=== PATIENT | female | born 1985 | race Caucasian/White ===

== ENCOUNTER 2017-06-05 16:54 | Emergency (ER) | payer MEDICAID ==
[2017-06-05 17:29] LABS: CHLORIDE,CL 101 mmol/L (101-111); SODIUM,NA 139 mmol/L (135-145)
[2017-06-05] MEDS ORDERED: GI Cocktail Oral Solution 30 ML PO ONE (17:36)
--- NOTE | 2017-06-05 17:42 | EDM.PDOC ---
ED HPI GENERAL MEDICAL PROBLEM - General Chief Complaint: Chest Pain Stated Complaint: CHEST PAIN THAT MOVED TO LEFT SIDE [id number] Time Seen by Provider: 06/05/17 17:25 Source of Information: Reports: Patient History Limitations: Reports: No Limitations - History of Present Illness INITIAL COMMENTS - FREE TEXT/NARRATIVE: This 32 yo female patient reports to the ED with an acute onset of epigastric pain. The patient reports her pain started in the epigastric area, went through to her back and up into her left posterior shoulder. The patient reports she has recently (Thursday) had an Echo due to frequent PVC's. The patient reports she is scheduled to have continued evaluation by a specialist on 07/09/17. The patient reports she had turkey, mashed potatoes and gravy for lunch today. The patient reports she took a nap and was awoken at 1604 with the symptoms listed above. 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: Reports: EKG, IV/IO Left Chest Pain Score (Numeric/FACES): 7 - Related Data Allergies Allergy/AdvReac Type Severity Reaction Status Date / Time Penicillins Allergy Abdominal Verified 06/05/17 17:09 Cramps clindamycin AdvReac Nausea and Verified 06/05/17 17:09 Vomiting Home Meds: Home Meds Acetaminophen [Tylenol] 650 mg PO Q4H PRN #0 tablet 08/27/16 [Rx] Omeprazole Magnesium [Prilosec Otc] 20 mg PO DAILY 06/05/17 [History] Past Medical History - Past Health History Medical/Surgical History: Denies Medical/Surgical History HEENT History: Reports: Impaired Vision Cardiovascular History: Reports: None Respiratory History: Reports: None Gastrointestinal History: Reports: None Genitourinary History: Reports: None 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: , 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 Other OB/BYN History: T.A.- May 09, 2015 Musculoskeletal History: Reports: Other (See Below) Other Musculoskeletal History: ACL repaired Neurological History: Reports: None Psychiatric History: Reports: Anxiety, Depression Endocrine/Metabolic History: Reports: None Hematologic History: Reports: None Immunologic History: Reports: None Oncologic (Cancer) History: Reports: None Dermatologic History: Reports: None - Infectious Disease History Infectious Disease History: Reports: Chicken Pox, Herpes - Past Surgical History Head Surgeries/Procedures: Reports: None HEENT Surgical History: Reports: Tonsillectomy Female Surgical History: Reports: Dilitation & Evacuation Musculoskeletal Surgical History: Reports: Arthroscopic Knee, Other (See Below) Social & Family History - Family History Family Medical History: Noncontributory - Tobacco Use Smoking Status *Q: Current Some Day Smoker Years of Tobacco use: 16 Packs/Tins Daily: 0.5 Used Tobacco, but Quit: Yes Month Tobacco Last Used: 12 Second Hand Smoke Exposure: Yes - Caffeine Use Caffeine Use: Reports: Coffee, Soda - Alcohol Use Days Per Week of Alcohol Use: 1 Number of Drinks Per Day: 2 Total Drinks Per Week: 2 - Recreational Drug Use Recreational Drug Use: No ED ROS GENERAL - Review of Systems Review Of Systems: ROS reveals no pertinent complaints other than HPI. ED EXAM, GENERAL - Physical Exam Exam: See Below Exam Limited By: No Limitations General Appearance: Alert, WD/WN, Moderate Distress Eye Exam: Bilateral Eye: EOMI, Normal Inspection, PERRL Ears: Normal External Exam, Normal Canal, Hearing Grossly Normal, Normal TMs Nose: Normal Inspection, Normal Mucosa, No Blood Throat/Mouth: Normal Inspection, Normal Lips, Normal Teeth, Normal Gums, Normal Oropharynx, Normal Voice, No Airway Compromise Head: Atraumatic, Normocephalic Neck: Normal Inspection, Supple, Non-Tender, Full Range of Motion Respiratory/Chest: No Respiratory Distress, Lungs Clear, Normal Breath Sounds, No Accessory Muscle Use, Chest Non-Tender Cardiovascular: Normal Peripheral Pulses, Regular Rate, Rhythm, No Edema, No Gallop, No JVD, No Murmur, No Rub, Other (frequent irregular beats) GI/Abdominal: Normal Bowel Sounds, Soft, No Organomegaly, No Distention, No Abnormal Bruit, No Mass, Tender (mild epigastric tenderness) (Female) Exam: Deferred Rectal (Female) Exam: Deferred Back Exam: Normal Inspection, Full Range of Motion, NT Extremities: Normal Inspection, Normal Range of Motion, Non-Tender, Normal Capillary Refill, No Pedal Edema Neurological: Alert, Oriented, CN II-XII Intact, Normal Cognition, Normal Gait, Normal Reflexes, No Motor/Sensory Deficits Psychiatric: Normal Affect, Normal Mood Skin Exam: Warm, Dry, Intact, Normal Color, No Rash Lymphatic: No Adenopathy Course - Vital Signs Last Recorded V/S: Last Vital Signs Temp 36.8 C 06/05/17 17:05 Pulse 86 06/05/17 17:42 Resp 16 06/05/17 17:42 BP 108/69 06/05/17 17:42 Pulse Ox 100 06/05/17 17:05 - Orders/Labs/Meds Orders: Active Orders 24 hr Category Date Time Status EKG Documentation Completion [RC] URGENT Care 06/05/17 16:58 Active Chest 1V Frontal [CR] Urgent Exams 06/05/17 17:00 Taken Labs: Laboratory Tests 06/05/17 06/05/17 06/05/17 Range/Units 17:05 17:05 17:05 WBC 8.7 (5.0-10.0) 10^3/uL RBC 4.54 (4.2-5.4) 10^6/uL Hgb 13.9 (12.0-16.0) g/dL Hct 42.1 (37.0-47.0) % MCV 92.7 (80-100) fL MCH 30.6 (27.0-34.0) pg MCHC 33.0 (33.0-35.0) g/dL Plt Count 277 (150-450) 10^3/uL Neut % (Auto) 47.1 (42.2-75.2) % Lymph % (Auto) 42.1 (20.5-50.1) % [place] % (Auto) 8.7 H (2-8) % Eos % (Auto) 1.8 (1.0-3.0) % Baso % (Auto) 0.3 (0.0-1.0) % D-Dimer, Quantitative < 100 (0-400) ng/mL Sodium 139 (135-145) mmol/L Potassium 3.7 (3.6-5.0) mmol/L Chloride 101 (101-111) mmol/L Carbon Dioxide 27.0 (21.0-31.0) mmol/L Anion Gap 14.7 BUN 16 (7-18) mg/dL Creatinine 1.1 (0.6-1.3) mg/dL Est Cr Clr Drug Dosing 79.40 mL/min Estimated GFR (MDRD) 58 BUN/Creatinine Ratio 14.54 Glucose 91 (74-105) mg/dL Calcium 9.4 (8.4-10.2) mg/dl Total Bilirubin 0.2 (0.2-1.0) mg/dL AST 21 (10-42) IU/L ALT 18 (10-60) IU/L Alkaline Phosphatase 92 (42-121) IU/L Troponin I < 0.02 (0.00-0.02) ng/ml Total Protein 7.9 (6.7-8.2) g/dl Albumin 4.5 (3.2-5.5) g/dl Globulin 3.4 Albumin/Globulin Ratio 1.32 Amylase 46 (28-100) U/L Lipase 39 (22-51) U/L Urine Color (YELLOW) Urine Appearance (CLEAR) Urine pH (5.0-9.0) Ur Specific [place] (1.005-1.030) Urine Protein (NEGATIVE) Urine Glucose (UA) (NEGATIVE) Urine Ketones (NEGATIVE) Urine Occult Blood (NEGATIVE) Urine Nitrite (NEGATIVE) Urine Bilirubin (NEGATIVE) Urine Urobilinogen (0.2-1.0) mg/dL Ur Leukocyte Esterase (NEGATIVE) Urine RBC /HPF Urine WBC (0-5/HPF) /HPF Ur Epithelial Cells /HPF Amorphous Sediment (0/HPF) /HPF Urine Opiates Screen (NEGATIVE) Ur Oxycodone Screen (NEGATIVE) Urine Methadone Screen (NEGATIVE) Ur Barbiturates Screen (NEGATIVE) U Tricyclic Antidepress (NEGATIVE) Ur Phencyclidine Scrn (NEGATIVE) Ur Amphetamine Screen (NEGATIVE) U Methamphetamines Scrn (NEGATIVE) Urine MDMA Screen (NEGATIVE) U Benzodiazepines Scrn (NEGATIVE) Urine Cocaine Screen (NEGATIVE) U Marijuana (THC) Screen (NEGATIVE) 06/05/17 06/05/17 Range/Units 17:08 17:08 WBC (5.0-10.0) 10^3/uL RBC (4.2-5.4) 10^6/uL Hgb (12.0-16.0) g/dL Hct (37.0-47.0) % MCV (80-100) fL MCH (27.0-34.0) pg MCHC (33.0-35.0) g/dL Plt Count (150-450) 10^3/uL Neut % (Auto) (42.2-75.2) % Lymph % (Auto) (20.5-50.1) % [place] % (Auto) (2-8) % Eos % (Auto) (1.0-3.0) % Baso % (Auto) (0.0-1.0) % D-Dimer, Quantitative (0-400) ng/mL Sodium (135-145) mmol/L Potassium (3.6-5.0) mmol/L Chloride (101-111) mmol/L Carbon Dioxide (21.0-31.0) mmol/L Anion Gap BUN (7-18) mg/dL Creatinine (0.6-1.3) mg/dL Est Cr Clr Drug Dosing mL/min Estimated GFR (MDRD) BUN/Creatinine Ratio Glucose (74-105) mg/dL Calcium (8.4-10.2) mg/dl Total Bilirubin (0.2-1.0) mg/dL AST (10-42) IU/L ALT (10-60) IU/L Alkaline Phosphatase (42-121) IU/L Troponin I (0.00-0.02) ng/ml Total Protein (6.7-8.2) g/dl Albumin (3.2-5.5) g/dl Globulin Albumin/Globulin Ratio Amylase (28-100) U/L Lipase (22-51) U/L Urine Color Yellow (YELLOW) Urine Appearance Clear (CLEAR) Urine pH 7.5 (5.0-9.0) Ur Specific [place] 1.015 (1.005-1.030) Urine Protein Negative (NEGATIVE) Urine Glucose (UA) Negative (NEGATIVE) Urine Ketones Negative (NEGATIVE) Urine Occult Blood Negative (NEGATIVE) Urine Nitrite Negative (NEGATIVE) Urine Bilirubin Negative (NEGATIVE) Urine Urobilinogen 0.2 (0.2-1.0) mg/dL Ur Leukocyte Esterase Negative (NEGATIVE) Urine RBC 0-5 /HPF Urine WBC 0-5 (0-5/HPF) /HPF Ur Epithelial Cells Few /HPF Amorphous Sediment Rare (0/HPF) /HPF Urine Opiates Screen Negative (NEGATIVE) Ur Oxycodone Screen Negative (NEGATIVE) Urine Methadone Screen Negative (NEGATIVE) Ur Barbiturates Screen Negative (NEGATIVE) U Tricyclic Antidepress Negative (NEGATIVE) Ur Phencyclidine Scrn Negative (NEGATIVE) Ur Amphetamine Screen Negative (NEGATIVE) U Methamphetamines Scrn Negative (NEGATIVE) Urine MDMA Screen Negative (NEGATIVE) U Benzodiazepines Scrn Negative (NEGATIVE) Urine Cocaine Screen Negative (NEGATIVE) U Marijuana (THC) Screen Negative (NEGATIVE) Meds: Medications Discontinued Medications Generic Name Dose Route Start Last Admin Trade Name [place] PRN Reason Stop Dose Admin Al Hydroxide/Mg Hydroxide 30 ml 06/05/17 17:36 06/05/17 17:41 Gi Cocktail PO 06/05/17 17:37 30 ml ONETIME ONE Administration Departure - Departure Time of Disposition: 18:02 Disposition: Home, Self-Care 01 Condition: Fair Clinical Impression: Epigastric abdominal pain Instructions: Abdominal Pain, Adult, [id number] Forms: ED Department Discharge Care Plan Goals: The patient was advised of the examination, lab, EKG and x-ray results during the visit. The patient was given a GI cocktail while in the ED with no changes in her symptoms. The patient was encouraged to stick to a bland, low fat diet over the weekend. If the patient has any additional symptoms or concerns, the patient should follow-up with her primary care facility or return to the emergency department. - My Orders Last 24 Hours: My Active Orders 06/05/17 16:58 EKG Documentation Completion [RC] URGENT 06/05/17 17:00 Chest 1V Frontal [CR] Urgent - Assessment/Plan Last 24 Hours: My Active Orders 06/05/17 16:58 EKG Documentation Completion [RC] URGENT 06/05/17 17:00 Chest 1V Frontal [CR] Urgent
[2017-06-05 17:43] VITALS: BP 108/69
--- NOTE | 2017-06-11 15:06 | EKG ---
06/05/2017 - KARIS WILSON - FINDINGS: This 12-lead EKG shows a sinus arrhythmia with an average rate of 88 (78 to 96). There are multiple PVCs seen. Borderline prolonged QT interval. No acute ST-segment or T-wave changes. [facility] /[id number]
== END 2017-06-05 18:09 | disposition home or self-care (01) ==
LOC: DL.ED 16:54
DX: R10.13 Epigastric pain (principal); F17.210 Nicotine dependence, cigarettes, uncomplicated; Z88.0 Allergy status to penicillin; Z88.1 Allergy status to other antibiotic agents
CPT/HCPCS: 36415; 71010; 80053; 80305; 81001; 82150; 83690; 84484; 85025; 85379; 93005; 99285; A9270

== ENCOUNTER 2017-06-17 13:27 | Emergency (ER) | payer MEDICAID | END 2017-06-17 13:56 | disposition left against medical advice (07) | LOC: DL.ED 13:27 | DX: Z53.21 Procedure and treatment not carried out due to patient leaving prior to being seen by health care provider (principal) ==

== ENCOUNTER 2017-07-25 09:23 | Emergency (ER) | payer MEDICAID ==
[2017-07-25] MEDS ORDERED: GI Cocktail Oral Solution 30 ML PO ONE (09:42)
--- NOTE | 2017-07-25 09:46 | EDM.PDOC ---
ED HPI GENERAL MEDICAL PROBLEM - General Chief Complaint: Abdominal Pain Stated Complaint: INDIGESTION,BACK,CHEST,ABD PAINS,RED RASH [id number] Time Seen by Provider: 07/25/17 09:37 Source of Information: Reports: Patient, Old Records, RN, RN Notes Reviewed History Limitations: Reports: No Limitations - History of Present Illness INITIAL COMMENTS - FREE TEXT/NARRATIVE: Arrives from home by POV with c/o RUQ & epigastric abdominal pain that radiates into the chest and causes severe esophageal burning. She also reports a tight band feeling from the RUQ abdomen all the way around her body, and pain the radiates up in the Rt shoulder blade and adjacent upper back. Admits to nausea. Denies vomiting, diarrhea, constipation, fever, chills, cough, SOB, middle or lower abdominal pain, flank pain, or urinary symptoms. Onset of her Sx's was yesterday morning. She took multiple OTC antacid products and omeprazole 20mg x2 doses without relief. After dinner last evening she also developed a hive like rash on her chest, abdomen, and back, and a little on the face. She denies any prior Hx of acid reflux. Addendum created by Brayden Farrar MD on 07/25/2017 11:53 AM Central Time ([place] & [place]) Please add: There is mild circumferential wall thickening of the duodenum, which is nonspecific. This may reflect under distention of bowel although mild duodenitis can also produce similar imaging findings. There are no significant inflammatory changes within the mesentery. 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 Treatments, Other Medication(s) Bilateral Upper Back Pain Score (Numeric/FACES): 8 - Related Data Allergies Allergy/AdvReac Type Severity Reaction Status Date / Time Penicillins Allergy Abdominal Verified 07/25/17 09:44 Cramps clindamycin AdvReac Nausea and Verified 07/25/17 09:44 Vomiting Home Meds: Home Meds Acetaminophen [Tylenol] 650 mg PO Q4H PRN #0 tablet 08/27/16 [Rx] Omeprazole Magnesium [Prilosec Otc] 20 mg PO DAILY 06/05/17 [History] Past Medical History - Past Health History Medical/Surgical History: Denies Medical/Surgical History HEENT History: Reports: Impaired Vision Cardiovascular History: Reports: Other (See Below) (PVCs) Respiratory History: Reports: None Gastrointestinal History: Reports: None Genitourinary History: Reports: None 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: , 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 Other OB/BYN History: T.A.- May 09, 2015 Musculoskeletal History: Reports: Other (See Below) Other Musculoskeletal History: ACL repaired Neurological History: Reports: None Psychiatric History: Reports: Anxiety, Depression Endocrine/Metabolic History: Reports: None Hematologic History: Reports: None Immunologic History: Reports: None Oncologic (Cancer) History: Reports: None Dermatologic History: Reports: None - Infectious Disease History Infectious Disease History: Reports: Chicken Pox, Herpes - Past Surgical History Head Surgeries/Procedures: Reports: None HEENT Surgical History: Reports: Tonsillectomy Female Surgical History: Reports: Dilitation & Evacuation Musculoskeletal Surgical History: Reports: Arthroscopic Knee, Other (See Below) Social & Family History - Family History Family Medical History: Noncontributory - Tobacco Use Smoking Status *Q: Current Some Day Smoker Years of Tobacco use: 16 Packs/Tins Daily: 0.5 Used Tobacco, but Quit: Yes Month Tobacco Last Used: 12 Second Hand Smoke Exposure: Yes - Caffeine Use Caffeine Use: Reports: Coffee, Soda - Alcohol Use Days Per Week of Alcohol Use: 1 Number of Drinks Per Day: 2 Total Drinks Per Week: 2 - Recreational Drug Use Recreational Drug Use: No - Living Situation & Occupation Living situation: Reports: with Family ED ROS GENERAL - Review of Systems Review Of Systems: ROS reveals no pertinent complaints other than HPI. ED EXAM, GENERAL - Physical Exam Exam: See Below Exam Limited By: No Limitations General Appearance: Alert, WD/WN, No Apparent Distress, Anxious Eye Exam: Bilateral Eye: Normal Inspection Ears: Hearing Grossly Normal Nose: Normal Inspection Throat/Mouth: Normal Inspection, Normal Lips, Normal Oropharynx, Normal Voice, No Airway Compromise Head: Atraumatic, Normocephalic Neck: Normal Inspection, Supple, Non-Tender, Full Range of Motion. No: Lymphadenopathy (L), Lymphadenopathy (R) Respiratory/Chest: No Respiratory Distress, Lungs Clear, Normal Breath Sounds, No Accessory Muscle Use, Chest Non-Tender Cardiovascular: Normal Peripheral Pulses, Regular Rate, Rhythm, No Edema, No Gallop, No JVD, No Murmur, No Rub, Extra Beats GI/Abdominal: Normal Bowel Sounds, Soft, No Distention, No Abnormal Bruit, Tender (epigastric and RUQ). No: Guarding, Rigid, Rebound (Female) Exam: Deferred Rectal (Female) Exam: Deferred Back Exam: Full Range of Motion Extremities: Normal Inspection Neurological: Alert, Oriented, CN II-XII Intact, Normal Cognition, Normal Gait, No Motor/Sensory Deficits Psychiatric: Anxious Skin Exam: Warm, Dry, Intact, Normal Color, Rash (generalized blanching urticarial rash to torso and a small amount on face) EKG INTERPRETATION EKG Date: 07/25/17 Time: 09:43 Rhythm: Other (SR) Rate (Beats/Min): 69 [place]: Normal P-Wave: Present QRS: Normal (with a single PVC) ST-T: Normal QT: Normal Comparison: NA - No Prior EKG EKG Interpretation Comments: No acute ischemic changes. Course - Vital Signs Last Recorded V/S: Last Vital Signs Temp 36.9 C 07/25/17 11:56 Pulse 69 07/25/17 11:56 Resp 18 07/25/17 11:56 BP 107/68 07/25/17 11:56 Pulse Ox 98 07/25/17 11:56 - Orders/Labs/Meds Orders: Active Orders 24 hr Category Date Time Status EKG 12 Lead [EKG Documentation Completion] [RC] STAT Care 07/25/17 09:41 Active Peripheral IV Care [RC] . DIRECTED Care 07/25/17 10:05 Active Abdomen Pelvis w Cont [CT] Stat Exams 07/25/17 10:41 Ordered Chest 1V Frontal [CR] Stat Exams 07/25/17 09:41 Taken CULTURE STREP A CONFIRMATION [] Stat Lab 07/25/17 10:22 Results STREP SCRN A RAPID W CULT CONF [RM] Stat Lab 07/25/17 10:22 Results Sodium Chloride 0.9% [Saline Flush] Med 07/25/17 10:05 Active 10 ml FLUSH ASDIRECTED PRN Peripheral IV Insertion Adult [OM.PC] Stat Oth 07/25/17 10:05 Ordered Medication Orders Sodium Chloride (Saline Flush) 10 ml FLUSH ASDIRECTED PRN PRN Reason: Keep Vein Open Last Admin: 07/25/17 10:25 Dose: 10 ml Labs: Laboratory Tests 07/25/17 07/25/17 07/25/17 Range/Units 09:52 09:52 09:52 WBC 7.5 (5.0-10.0) 10^3/uL RBC 4.29 (4.2-5.4) 10^6/uL Hgb 13.2 (12.0-16.0) g/dL Hct 41.0 (37.0-47.0) % MCV 95.6 (80-100) fL MCH 30.8 (27.0-34.0) pg MCHC 32.2 L (33.0-35.0) g/dL Plt Count 244 (150-450) 10^3/uL Neut % (Auto) 53.7 (42.2-75.2) % Lymph % (Auto) 38.5 (20.5-50.1) % Piatt % (Auto) 6.3 (2-8) % Eos % (Auto) 1.1 (1.0-3.0) % Baso % (Auto) 0.4 (0.0-1.0) % D-Dimer, Quantitative < 100 (0-400) ng/mL Sodium 137 (135-145) mmol/L Potassium 3.6 (3.6-5.0) mmol/L Chloride 99 L (101-111) mmol/L Carbon Dioxide 29.0 (21.0-31.0) mmol/L Anion Gap 12.6 BUN 13 (7-18) mg/dL Creatinine 0.7 (0.6-1.3) mg/dL Est Cr Clr Drug Dosing TNP Estimated GFR (MDRD) > 60 BUN/Creatinine Ratio 18.57 Glucose 101 (74-105) mg/dL Calcium 9.1 (8.4-10.2) mg/dl Total Bilirubin 0.4 (0.2-1.0) mg/dL AST 25 (10-42) IU/L ALT 18 (10-60) IU/L Alkaline Phosphatase 78 (42-121) IU/L Troponin I < 0.02 (0.00-0.02) ng/ml Total Protein 7.1 (6.7-8.2) g/dl Albumin 3.9 (3.2-5.5) g/dl Globulin 3.2 Albumin/Globulin Ratio 1.22 Amylase 37 (28-100) U/L Lipase 24 (22-51) U/L Urine Color (YELLOW) Urine Appearance (CLEAR) Urine pH (5.0-9.0) Ur Specific [place] (1.005-1.030) Urine Protein (NEGATIVE) Urine Glucose (UA) (NEGATIVE) Urine Ketones (NEGATIVE) Urine Occult Blood (NEGATIVE) Urine Nitrite (NEGATIVE) Urine Bilirubin (NEGATIVE) Urine Urobilinogen (0.2-1.0) mg/dL Ur Leukocyte Esterase (NEGATIVE) Urine RBC /HPF Urine WBC (0-5/HPF) /HPF Ur Epithelial Cells /HPF Urine Bacteria (0-FEW/HPF) /HPF Urine Mucus /LPF Urine HCG, Qual Urine Opiates Screen (NEGATIVE) Ur Oxycodone Screen (NEGATIVE) Urine Methadone Screen (NEGATIVE) Ur Barbiturates Screen (NEGATIVE) U Tricyclic Antidepress (NEGATIVE) Ur Phencyclidine Scrn (NEGATIVE) Ur Amphetamine Screen (NEGATIVE) U Methamphetamines Scrn (NEGATIVE) Urine MDMA Screen (NEGATIVE) U Benzodiazepines Scrn (NEGATIVE) Urine Cocaine Screen (NEGATIVE) U Marijuana (THC) Screen (NEGATIVE) 07/25/17 07/25/17 07/25/17 Range/Units 10:06 10:06 10:06 WBC (5.0-10.0) 10^3/uL RBC (4.2-5.4) 10^6/uL Hgb (12.0-16.0) g/dL Hct (37.0-47.0) % MCV (80-100) fL MCH (27.0-34.0) pg MCHC (33.0-35.0) g/dL Plt Count (150-450) 10^3/uL Neut % (Auto) (42.2-75.2) % Lymph % (Auto) (20.5-50.1) % Piatt % (Auto) (2-8) % Eos % (Auto) (1.0-3.0) % Baso % (Auto) (0.0-1.0) % D-Dimer, Quantitative (0-400) ng/mL Sodium (135-145) mmol/L Potassium (3.6-5.0) mmol/L Chloride (101-111) mmol/L Carbon Dioxide (21.0-31.0) mmol/L Anion Gap BUN (7-18) mg/dL Creatinine (0.6-1.3) mg/dL Est Cr Clr Drug Dosing Estimated GFR (MDRD) BUN/Creatinine Ratio Glucose (74-105) mg/dL Calcium (8.4-10.2) mg/dl Total Bilirubin (0.2-1.0) mg/dL AST (10-42) IU/L ALT (10-60) IU/L Alkaline Phosphatase (42-121) IU/L Troponin I (0.00-0.02) ng/ml Total Protein (6.7-8.2) g/dl Albumin (3.2-5.5) g/dl Globulin Albumin/Globulin Ratio Amylase (28-100) U/L Lipase (22-51) U/L Urine Color Yellow (YELLOW) Urine Appearance Slightly cloudy (CLEAR) Urine pH 6.0 (5.0-9.0) Ur Specific [place] 1.015 (1.005-1.030) Urine Protein Negative (NEGATIVE) Urine Glucose (UA) Negative (NEGATIVE) Urine Ketones Negative (NEGATIVE) Urine Occult Blood Negative (NEGATIVE) Urine Nitrite Negative (NEGATIVE) Urine Bilirubin Negative (NEGATIVE) Urine Urobilinogen 0.2 (0.2-1.0) mg/dL Ur Leukocyte Esterase Negative (NEGATIVE) Urine RBC 0-5 /HPF Urine WBC 5-10 H (0-5/HPF) /HPF Ur Epithelial Cells Moderate H /HPF Urine Bacteria Few (0-FEW/HPF) /HPF Urine Mucus Rare /LPF Urine HCG, Qual Negative Urine Opiates Screen Negative (NEGATIVE) Ur Oxycodone Screen Negative (NEGATIVE) Urine Methadone Screen Negative (NEGATIVE) Ur Barbiturates Screen Negative (NEGATIVE) U Tricyclic Antidepress Negative (NEGATIVE) Ur Phencyclidine Scrn Negative (NEGATIVE) Ur Amphetamine Screen Negative (NEGATIVE) U Methamphetamines Scrn Negative (NEGATIVE) Urine MDMA Screen Negative (NEGATIVE) U Benzodiazepines Scrn Negative (NEGATIVE) Urine Cocaine Screen Negative (NEGATIVE) U Marijuana (THC) Screen Positive H (NEGATIVE) Meds: Medications Generic Name Dose Route Start Last Admin Trade Name Levarq PRN Reason Stop Dose Admin Sodium Chloride 10 ml 07/25/17 10:05 07/25/17 10:25 Saline Flush FLUSH 10 ml ASDIRECTED PRN Administration Keep Vein Open Discontinued Medications Generic Name Dose Route Start Last Admin Trade Name [place] PRN Reason Stop Dose Admin Al Hydroxide/Mg Hydroxide 30 ml 07/25/17 09:42 07/25/17 10:07 Gi Cocktail PO 07/25/17 09:43 30 ml ONETIME ONE Administration Diphenhydramine HCl 25 mg 07/25/17 10:05 07/25/17 10:25 Benadryl IVPUSH 07/25/17 10:06 25 mg ONETIME ONE Administration Famotidine 20 mg 07/25/17 10:06 07/25/17 10:25 Pepcid IVPUSH 07/25/17 10:07 20 mg ONETIME ONE Administration Sodium Chloride 1,000 mls @ 999 mls/hr 07/25/17 10:06 07/25/17 10:25 Normal Saline IV 07/25/17 11:06 999 mls/hr .BOLUS ONE Administration Iopamidol 100 ml 07/25/17 10:43 Isovue-300 (61%) IVPUSH 07/25/17 10:44 ONETIME ONE Methylprednisolone Sodium Succinate 125 mg 07/25/17 10:06 07/25/17 10:25 Solu-Medrol IVPUSH 07/25/17 10:07 125 mg ONETIME ONE Administration - Radiology Interpretation Free Text/Narrative:: AP CXR IMPRESSION: Opacity right lung base may reflect subsegmental atelectasis. No acute cardiopulmonary process otherwise. Thank you for allowing us to participate in the care of your patient. Dictated and Authenticated by: Brayden Farrar MD 07/25/2017 10:41 AM Central Time ([place] & [place]) CT Abd/Pelvis IMPRESSION: No CT evidence for acute process to explain the patient's right upper quadrant pain. Consider right quadrant ultrasound. Thank you for allowing us to participate in the care of your patient. Dictated and Authenticated by: Brayden Farrar MD 07/25/2017 11:47 AM Central Time ([place] & [place]) CT Results Date: 07/25/17 Departure - Departure Time of Disposition: 11:58 Disposition: Home, Self-Care 01 Condition: Fair Clinical Impression: Duodenitis GERD (gastroesophageal reflux disease) Qualifiers: Esophagitis presence: with esophagitis Qualified Code(s): K21.0 - Gastro- esophageal reflux disease with esophagitis - Discharge Information Instructions: Gastroesophageal Reflux Disease, Adult, Duodenitis, Abdominal Pain, Adult, [id number] Forms: ED Department Discharge Additional Instructions: Diet modification as indicated on the printed discharge instructions. Rx: Carafate 1g Rx: Ranitidine 150mg Rx: Omeprazole 20mg Rx: Zofran 4mg Follow up in clinic next week with your primary doctor for recheck and referral an upper GI endoscopy. Return to ER if worse at any time. - My Orders Last 24 Hours: My Active Orders 07/25/17 09:41 EKG 12 Lead [EKG Documentation Completion] [RC] STAT Chest 1V Frontal [CR] Stat 07/25/17 10:05 Peripheral IV Care [RC] . DIRECTED Sodium Chloride 0.9% [Saline Flush] 10 ml FLUSH ASDIRECTED PRN Peripheral IV Insertion Adult [OM.PC] Stat 07/25/17 10:22 CULTURE STREP A CONFIRMATION [RM] Stat STREP SCRN A RAPID W CULT CONF [RM] Stat 07/25/17 10:41 Abdomen Pelvis w Cont [CT] Stat - Assessment/Plan Last 24 Hours: My Active Orders 07/25/17 09:41 EKG 12 Lead [EKG Documentation Completion] [RC] STAT Chest 1V Frontal [CR] Stat 07/25/17 10:05 Peripheral IV Care [RC] . DIRECTED Sodium Chloride 0.9% [Saline Flush] 10 ml FLUSH ASDIRECTED PRN Peripheral IV Insertion Adult [OM.PC] Stat 07/25/17 10:22 CULTURE STREP A CONFIRMATION [RM] Stat STREP SCRN A RAPID W CULT CONF [RM] Stat 07/25/17 10:41 Abdomen Pelvis w Cont [CT] Stat
[2017-07-25] MEDS ORDERED: diphenhydrAMINE 50 MG/ML SDV IVPUSH ONE (10:05)
[2017-07-25] MEDS ORDERED: Sodium Chloride 0.9% 10 ML Syringe FLUSH PRN (10:05)
[2017-07-25] MEDS ORDERED: Sodium Chloride 0.9% 1,000 ML IV ONE (10:06)
[2017-07-25] MEDS ORDERED: methylPREDNISolone Sodium Succinate 125 MG/2 ML SDV IVPUSH ONE (10:06)
[2017-07-25] MEDS ORDERED: Famotidine 20 MG/2 ML SDV IVPUSH ONE (10:06)
[2017-07-25 10:20] LABS: ANION GAP 12.6; CHLORIDE,CL 99 mmol/L (101-111); SODIUM,NA 137 mmol/L (135-145)
[2017-07-25] MEDS ORDERED: Iopamidol 612 MG/ML 100 ML Bottle IVPUSH ONE (10:43)
[2017-07-25 11:57] VITALS: BP 107/68
--- NOTE | 2017-07-28 17:28 | EKG ---
07/25/2017 - KARIS WILSON - EKG per my reading shows sinus rhythm at the rate of [address] changes[address] [facility] /[id number]
== END 2017-07-25 12:22 | disposition home or self-care (01) ==
LOC: DL.ED 09:23
DX: K29.80 Duodenitis without bleeding (principal); K21.9 Gastro-esophageal reflux disease without esophagitis; F17.210 Nicotine dependence, cigarettes, uncomplicated; Z79.899 Other long term (current) drug therapy; Z88.0 Allergy status to penicillin; Z88.1 Allergy status to other antibiotic agents
CPT/HCPCS: 36415; 71045; 74177; 80053; 80305; 81001; 81025; 82150; 83690; 84484; 85025; 85379; 87081; 87430; 93005; 96361; 96374; 96375; 99285; A9270; J1200; J2930; J7030; J7050; Q9967; S0028

== ENCOUNTER 2017-07-26 13:10 | Emergency (ER) | payer MEDICAID ==
[2017-07-26 13:24] VITALS: BP 133/75
[2017-07-26] MEDS ORDERED: methylPREDNISolone Sodium Succinate 40 MG/1 ML SDV IM ONE (13:34)
--- NOTE | 2017-07-26 13:39 | EDM.PDOC ---
ED HPI GENERAL MEDICAL PROBLEM - General Stated Complaint: HIVES, ALLERGIC REACTION TO PERSCRIPTIONS Time Seen by Provider: 07/26/17 13:35 Source of Information: Reports: Patient History Limitations: Reports: No Limitations - History of Present Illness INITIAL COMMENTS - FREE TEXT/NARRATIVE: This 32 yo female patient reports to the ED with a diffuse rash on her abdomen and arms. 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 Onset: Gradual Duration: Day(s):, Constant Location: Reports: Generalized Severity: Moderate Improves with: Reports: None Worsens with: Reports: None Associated Symptoms: Reports: No Other Symptoms - Related Data Allergies Allergy/AdvReac Type Severity Reaction Status Date / Time Penicillins Allergy Abdominal Verified 07/26/17 13:35 Cramps clindamycin AdvReac Nausea and Verified 07/26/17 13:35 Vomiting Home Meds: Home Meds Acetaminophen [Tylenol] 650 mg PO Q4H PRN #0 tablet 08/27/16 [Rx] Omeprazole Magnesium [Prilosec Otc] 20 mg PO DAILY 06/05/17 [History] Past Medical History - Past Health History Medical/Surgical History: Denies Medical/Surgical History HEENT History: Reports: Impaired Vision Cardiovascular History: Reports: Other (See Below) (PVCs) Other Cardiovascular History: PVC's and going to have an ablation she states for the PVC's Respiratory History: Reports: None Gastrointestinal History: Reports: None Genitourinary History: Reports: None 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: , 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 Other OB/BYN History: T.A.- May 09, 2015 Musculoskeletal History: Reports: Other (See Below) Other Musculoskeletal History: ACL repaired Neurological History: Reports: None Psychiatric History: Reports: Anxiety, Depression Endocrine/Metabolic History: Reports: None Hematologic History: Reports: None Immunologic History: Reports: None Oncologic (Cancer) History: Reports: None Dermatologic History: Reports: None - Infectious Disease History Infectious Disease History: Reports: Chicken Pox, Herpes - Past Surgical History Head Surgeries/Procedures: Reports: None HEENT Surgical History: Reports: Tonsillectomy Female Surgical History: Reports: Dilitation & Evacuation Musculoskeletal Surgical History: Reports: Arthroscopic Knee, Other (See Below) Social & Family History - Family History Family Medical History: Noncontributory - Tobacco Use Smoking Status *Q: Current Some Day Smoker Years of Tobacco use: 16 Packs/Tins Daily: 0.5 Used Tobacco, but Quit: Yes Month Tobacco Last Used: 12 Second Hand Smoke Exposure: Yes - Caffeine Use Caffeine Use: Reports: Coffee, Soda - Alcohol Use Days Per Week of Alcohol Use: 1 Number of Drinks Per Day: 2 Total Drinks Per Week: 2 - Recreational Drug Use Recreational Drug Use: No - Living Situation & Occupation Living situation: Reports: with Family ED ROS ALLERGIC REACTION - Review of Systems Review Of Systems: ROS reveals no pertinent complaints other than HPI. ED EXAM GENERAL NO PERIP PULSE - Physical Exam Exam: See Below Exam Limited By: No Limitations General Appearance: Alert, WD/WN, No Apparent Distress Eye Exam: Bilateral Eye: EOMI, Normal Inspection, PERRL Ears: Normal External Exam, Normal Canal, Hearing Grossly Normal, Normal TMs Nose: Normal Inspection, Normal Mucosa, No Blood Throat/Mouth: Normal Inspection, Normal Lips, Normal Teeth, Normal Gums, Normal Oropharynx, Normal Voice, No Airway Compromise Head: Atraumatic, Normocephalic Neck: Normal Inspection, Supple, Non-Tender, Full Range of Motion Respiratory/Chest: No Respiratory Distress, Lungs Clear, Normal Breath Sounds, No Accessory Muscle Use, Chest Non-Tender Cardiovascular: Normal Peripheral Pulses, Regular Rate, Rhythm, No Edema, No Gallop, No JVD, No Murmur, No Rub GI/Abdominal: Normal Bowel Sounds, Soft, Non-Tender, No Organomegaly, No Distention, No Abnormal Bruit, No Mass (Female) Exam: Deferred Rectal (Female) Exam: Deferred Back Exam: Normal Inspection, Full Range of Motion, NT Extremities: Normal Inspection, Normal Range of Motion, Non-Tender, Normal Capillary Refill, No Pedal Edema Neurological: Alert Psychiatric: Normal Affect, Normal Mood Skin Exam: Rash (diffuse fine rash on abdomen, chest, upper extremities and back ) Lymphatic: No Adenopathy Course - Vital Signs Last Recorded V/S: Last Vital Signs Temp 36.6 C 07/26/17 13:23 Pulse 83 07/26/17 13:23 Resp 18 07/26/17 13:23 BP 133/75 07/26/17 13:23 Pulse Ox 99 07/26/17 13:23 - Orders/Labs/Meds Meds: Medications Discontinued Medications Generic Name Dose Route Start Last Admin Trade Name Freq PRN Reason Stop Dose Admin Methylprednisolone Sodium Succinate 40 mg 07/26/17 13:34 Solu-Medrol IM 07/26/17 13:35 ONETIME ONE Departure - Departure Time of Disposition: 13:30 Disposition: Home, Self-Care 01 Condition: Fair Clinical Impression: Allergic reaction Qualifiers: Encounter type: initial encounter Qualified Code(s): T78.40XA - Allergy, unspecified, initial encounter - Discharge Information Instructions: Hives, [id number] Forms: ED Department Discharge Care Plan Goals: The patient was advised of the examination results during the visit. The patient was given an injection of SoluMedrol while in the ED. The patient was encouraged to take Benadryl (25 mg) every 6 hours. The patient was encouraged to take her medications as prescribed. The patient should follow-up with her primary care facility for continued evaluation and further management. If the patient has any additional symptoms or concerns, the patient should either return to the ED or visit her primary care facility.
== END 2017-07-26 14:00 | disposition home or self-care (01) ==
LOC: DL.ED 13:10
DX: T78.40XA Allergy, unspecified, initial encounter (principal); Z88.0 Allergy status to penicillin; Z88.8 Allergy status to other drugs, medicaments and biological substances; Z79.899 Other long term (current) drug therapy; F17.210 Nicotine dependence, cigarettes, uncomplicated
CPT/HCPCS: 96372; 99283; J2920

== ENCOUNTER 2017-09-23 13:02 | Emergency (ER) | payer MEDICAID ==
--- NOTE | 2017-09-23 13:55 | CR ---
CLINICAL HISTORY: 32-year-old female with chest pain. INTERPRETATION: No acute new cardiopulmonary abnormality identified in the interval since 25 July 2017 exam. Bony thorax unremarkable. Normal cardiac silhouette without cephalization of flow, signs of alveolar edema or dependent pleural fluid accumulation. No new lung mass, hilar lymphadenopathy or focal lobar pneumonia. No atelectasis/collapse. No pneumothorax.
[2017-09-23 14:01] LABS: CHLORIDE,CL 99 mmol/L (101-111); SODIUM,NA 136 mmol/L (135-145)
--- NOTE | 2017-09-23 14:44 | EDM.PDOC ---
ED HPI GENERAL MEDICAL PROBLEM - General Chief Complaint: Chest Pain Stated Complaint: [id number] chest, back, and shoulder pain sob, sick Time Seen by Provider: 09/23/17 13:55 Source of Information: Reports: Patient History Limitations: Reports: No Limitations - History of Present Illness INITIAL COMMENTS - FREE TEXT/NARRATIVE: This 32 yo female patient reports to the ED with intermittent chest pain that started last night. The patient reports she was lying down last night when her symptoms started. The patient had a second episode of chest pain later last night when she was lying down. The patient had a 3rd similar episode this morning while she was at work. The patient did call the clinic and was advised to report to the ED for further evaluation and treatment. The patient reports that she is supposed to have an ablation this year, but has not been able to schedule the procedure at this time. Onset Date: 09/22/17 Duration: Intermittent Location: Reports: Chest Quality: Reports: Ache, Dull, Pressure Severity: Moderate Improves with: Reports: None Worsens with: Reports: Other (increased stress) Associated Symptoms: Reports: Chest Pain Left Chest Pain Score (Numeric/FACES): 6 - Related Data Allergies Allergy/AdvReac Type Severity Reaction Status Date / Time omeprazole Allergy Hives Verified 09/23/17 13:29 clindamycin AdvReac Nausea and Verified 09/23/17 13:29 Vomiting Penicillins AdvReac Abdominal Verified 09/23/17 13:29 Cramps Home Meds: Home Meds . [No Known Home Meds] 09/23/17 [History] Past Medical History - Past Health History Medical/Surgical History: Denies Medical/Surgical History HEENT History: Reports: Impaired Vision Other HEENT History: WEARS CORRECTIVE LENS Cardiovascular History: Reports: Other (See Below) Other Cardiovascular History: PVC's and going to have an ablation she states for the PVC's Respiratory History: Reports: None Other Respiratory History: HX OF TOBACCO HABITUATION Gastrointestinal History: Reports: GERD, Other (See Below) Other Gastrointestinal History: HX OF CDIFF INFECTION Genitourinary History: Reports: None 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: , 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 Other OB/BYN History: T.A.- May 09, 2015 Musculoskeletal History: Reports: Fracture, Other (See Below) Other Musculoskeletal History: ACL repaired Neurological History: Reports: Migraines Psychiatric History: Reports: Anxiety, Depression Other Psychiatric History: post depression Endocrine/Metabolic History: Reports: Hypothyroidism Hematologic History: Reports: None Immunologic History: Reports: None Oncologic (Cancer) History: Reports: None Dermatologic History: Reports: None, Other (See Below) Other Dermatologic History: HX OF HSV INFECTION - Infectious Disease History Infectious Disease History: Reports: C-Difficile, Chicken Pox, Herpes - Past Surgical History Head Surgeries/Procedures: Reports: None HEENT Surgical History: Reports: Adenoidectomy, Tonsillectomy Other HEENT Surgeries/Procedures: Wears glasses for vision correction Cardiovascular Surgical History: Reports: None GI Surgical History: Reports: Colonoscopy Female Surgical History: Reports: Dilitation & Evacuation, Other (See Below) Other Female Surgeries/Procedures: cervical bx Musculoskeletal Surgical History: Reports: Arthroscopic Knee, Other (See Below) Other Musculoskeletal Surgeries/Procedures:: ACL repair Social & Family History - Family History Family Medical History: Noncontributory - Tobacco Use Smoking Status *Q: Current Some Day Smoker Years of Tobacco use: 16 Packs/Tins Daily: 1 Used Tobacco, but Quit: Yes Month/Year Tobacco Last Used: 12 Second Hand Smoke Exposure: No - Caffeine Use Caffeine Use: Reports: Coffee, Soda Other Caffeine Use: 24oz daily - Alcohol Use Days Per Week of Alcohol Use: 1 Number of Drinks Per Day: 4 Total Drinks Per Week: 4 - Recreational Drug Use Recreational Drug Use: No Drug Use in Last 12 Months: Yes Recreational Drug Type: Reports: Marijuana/Hashish Recreational Drug Use Frequency: Rarely - Living Situation & Occupation Living situation: Reports: with Family ED ROS GENERAL - Review of Systems Review Of Systems: ROS reveals no pertinent complaints other than HPI. ED EXAM, GENERAL - Physical Exam Exam: See Below Exam Limited By: No Limitations General Appearance: Alert, WD/WN, Mild Distress Eye Exam: Bilateral Eye: EOMI, Normal Inspection, PERRL Ears: Normal External Exam, Normal Canal, Hearing Grossly Normal, Normal TMs Nose: Normal Inspection, Normal Mucosa, No Blood Throat/Mouth: Normal Inspection, Normal Lips, Normal Teeth, Normal Gums, Normal Oropharynx, Normal Voice, No Airway Compromise Head: Atraumatic, Normocephalic Neck: Normal Inspection, Supple, Non-Tender, Full Range of Motion Respiratory/Chest: No Respiratory Distress, Lungs Clear, Normal Breath Sounds, No Accessory Muscle Use, Chest Non-Tender Cardiovascular: Normal Peripheral Pulses, No Edema, No Gallop, No JVD, No Murmur , No Rub, Extra Beats GI/Abdominal: Normal Bowel Sounds, Soft, Non-Tender, No Organomegaly, No Distention, No Abnormal Bruit, No Mass (Female) Exam: Deferred Rectal (Female) Exam: Deferred Back Exam: Normal Inspection, Full Range of Motion, NT Extremities: Normal Inspection, Normal Range of Motion, Non-Tender, Normal Capillary Refill, No Pedal Edema Neurological: Alert, Oriented, CN II-XII Intact, Normal Cognition, Normal Gait, Normal Reflexes, No Motor/Sensory Deficits Psychiatric: Normal Affect, Normal Mood Skin Exam: Warm, Dry, Intact, Normal Color, No Rash Lymphatic: No Adenopathy Course - Vital Signs Last Recorded V/S: Last Vital Signs Temp 37.2 C 09/23/17 13:29 Pulse 98 09/23/17 13:29 Resp 16 09/23/17 13:29 BP 111/69 09/23/17 13:29 Pulse Ox 98 09/23/17 13:29 - Orders/Labs/Meds Orders: Active Orders 24 hr Category Date Time Status EKG Documentation Completion [RC] URGENT Care 09/23/17 13:20 Active Labs: Laboratory Tests 09/23/17 09/23/17 Range/Units 13:35 13:35 WBC 4.0 L (5.0-10.0) 10^3/uL RBC 4.10 L (4.2-5.4) 10^6/uL Hgb 12.8 (12.0-16.0) g/dL Hct 38.2 (37.0-47.0) % MCV 93.2 (80-100) fL MCH 31.2 (27.0-34.0) pg MCHC 33.5 (33.0-35.0) g/dL Plt Count 203 (150-450) 10^3/uL Neut % (Auto) 52.3 (42.2-75.2) % Lymph % (Auto) 35.1 (20.5-50.1) % [place] % (Auto) 10.9 H (2-8) % Eos % (Auto) 1.2 (1.0-3.0) % Baso % (Auto) 0.5 (0.0-1.0) % Sodium 136 (135-145) mmol/L Potassium 3.6 (3.6-5.0) mmol/L Chloride 99 L (101-111) mmol/L Carbon Dioxide 29.0 (21.0-31.0) mmol/L Anion Gap 11.6 BUN 10 (7-18) mg/dL Creatinine 0.7 (0.6-1.3) mg/dL Est Cr Clr Drug Dosing 124.77 mL/min Estimated GFR (MDRD) > 60 BUN/Creatinine Ratio 14.28 Glucose 81 (74-105) mg/dL Calcium 8.5 (8.4-10.2) mg/dl Total Bilirubin 0.4 (0.2-1.0) mg/dL AST 25 (10-42) IU/L ALT 19 (10-60) IU/L Alkaline Phosphatase 64 (42-121) IU/L Troponin I < 0.02 (0.00-0.02) ng/ml Total Protein 7.0 (6.7-8.2) g/dl Albumin 4.0 (3.2-5.5) g/dl Globulin 3.0 Albumin/Globulin Ratio 1.33 Departure - Departure Time of Disposition: 14:53 Disposition: Home, Self-Care 01 Condition: Fair Clinical Impression: Chest pain Qualifiers: Chest pain type: other chest pain Qualified Code(s): R07.89 - Other chest pain ; R07.8 - Other chest pain Instructions: Nonspecific Chest Pain, [id number] Care Plan Goals: The patient was advised of her examination, lab, EKG and x-ray results during the visit. The patient was encouraged to continue with her current medications as scheduled. 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 If the patient has any additional symptoms or concerns , the patient should visit her primary care facility or return to the emergency department. - My Orders Last 24 Hours: My Active Orders 09/23/17 13:20 EKG Documentation Completion [RC] URGENT - Assessment/Plan Last 24 Hours: My Active Orders 09/23/17 13:20 EKG Documentation Completion [RC] URGENT
[2017-09-23 14:53] VITALS: BP 100/65
== END 2017-09-23 15:04 | disposition home or self-care (01) ==
LOC: DL.ED 13:02
DX: R07.89 Other chest pain (principal); F17.210 Nicotine dependence, cigarettes, uncomplicated; Z88.0 Allergy status to penicillin; Z88.1 Allergy status to other antibiotic agents; Z88.8 Allergy status to other drugs, medicaments and biological substances
CPT/HCPCS: 36415; 71045; 80053; 84484; 85025; 93005; 93010; 99285

== ENCOUNTER 2017-09-28 05:57 | Day surgery (SDC) | payer MEDICAID ==
[~2017-09-28 05:57] MED LIST: Dextrose 5%-0.45% NaCl 1,000 ML IV SCH; Midazolam 1 MG/ML 2 ML SDV ONE; Sodium Chloride 0.9% 10 ML Syringe FLUSH PRN; fentaNYL 100 MCG/2 ML SDV ONE
[2017-09-28] MEDS ORDERED: fentaNYL 100 MCG/2 ML SDV IV ONE ×3 (05:58→07:00)
[2017-09-28] MEDS ORDERED: Midazolam 1 MG/ML 2 ML SDV IV ONE ×3 (05:58→07:01)
[2017-09-28] MEDS ORDERED: Midazolam 1 MG/ML 2 ML SDV ONE (06:10)
[2017-09-28] MEDS ORDERED: fentaNYL 100 MCG/2 ML SDV ONE (06:11)
[2017-09-28] MEDS ORDERED: Dextrose 5%-0.45% NaCl 1,000 ML IV SCH (06:30)
--- NOTE | 2017-09-28 08:47 | OR ---
DATE: 09/28/2017 PROCEDURE PERFORMED: Esophagogastroduodenoscopy and multiple pinch biopsies. INSTRUMENT USED: GIF-Q180 Olympus video panendoscope. PREMEDICATIONS: No oral topical anesthesia used. Fentanyl 100 mcg intravenous and Versed 2 mg intravenous. This procedure was done under pulse oximetry, BP recording, and diagnostic cardiac sonographer. INDICATION: The patient with persistent longstanding abdominal pain and bloating, unexplained and not responsive to medical measures. Esophagogastroduodenoscopy is performed for detection of any active erosive lesions, Johansen's esophagus and/or malignancy also under consideration, H. pylori status to be determined, small bowel biopsies to be obtained for celiac disease if indicated, endoscopic hemostasis therapy if needed. DESCRIPTION OF PROCEDURE: The scope was passed with ease. Adequate visualization of the esophagus was made from proximal to distal areas. No upper esophageal lesions identified. No distal esophageal stricture. No uphill or downhill esophageal varices. No Cassidy-Mclean tear. No evidence of erosive esophagitis by [place] criteria. No esophageal polyp or tumor mass identified. Z-line was seen at around 40 cm distal to the oral verge, configuration consistent with grade 1 by ZAP classification. No proximal gastric varices noted. Gastric fundus examination by retroflexion showed no polypoid lesions. No gastric ulcer, malignant mass, or vascular ectasia identified. Duodenal bulb showed no ulcer. Visualized second part of the duodenum was unremarkable. Multiple pinch biopsies, 4 in number, were taken from different areas of the second part of the duodenum and sent for any histopathologic evidence of celiac disease. Multiple pinch biopsies were also obtained from the duodenal bulb at 9 o'clock and 12 o'clock positions and sent for histopathology. Multiple pinch biopsies were taken from the gastric antrum and proximal body and sent for PyloriTek test for H. pylori and histopathology. No bleeding was noted from any of the visualized areas at the completion of examination. Photographs were taken of the duodenal bulb, gastric antrum, fundus, and distal esophagus. IMPRESSION: Normal study. The patient tolerated the procedure well. [facility] /[id number]
[2017-09-28 09:10] VITALS: BP 103/61
== END 2017-09-28 09:12 | disposition home or self-care (01) ==
LOC: DL.ENDO 05:57
PROVIDERS: ATTEND Internal Medicine Gastroenterology
DX: R10.9 Unspecified abdominal pain (principal); Z79.899 Other long term (current) drug therapy; K59.00 Constipation, unspecified
CPT/HCPCS: 43239; 87077; J2250; J3010; J7042

== ENCOUNTER 2017-10-10 06:57 | Emergency (ER) | payer MEDICAID ==
[2017-10-10 07:15] VITALS: BP 120/71
[2017-10-10] MEDS ORDERED: Ondansetron 4 MG Tab.DIS PO ONE (07:29)
--- NOTE | 2017-10-10 07:29 | EDM.PDOC ---
ED HPI GENERAL MEDICAL PROBLEM - General Chief Complaint: General Stated Complaint: [id number] WOKE UP FEELING LIKE DREAMING DONT FEEL RI Time Seen by Provider: 10/10/17 07:10 Source of Information: Reports: Patient, RN, RN Notes Reviewed History Limitations: Reports: No Limitations - History of Present Illness INITIAL COMMENTS - FREE TEXT/NARRATIVE: Patient presents to the ER with c/o "not being able to wake up all the way". She states there is "something wrong" with her peripheral vision as well. She states she "just does not feel right". Patient states she has had a fever and chills this week, nausea, vomiting, and diarrhea. She states she feels as if her heart is racing. She states she has had a headache the last 2 days, but not today. Patient states her children have had influenza in the past weeks. Denies sore throat. Onset: Today, Sudden Duration: Constant Location: Reports: Head - Related Data Allergies Allergy/AdvReac Type Severity Reaction Status Date / Time clindamycin AdvReac Nausea and Verified 09/28/17 06:22 Vomiting Penicillins AdvReac Abdominal Verified 09/28/17 06:22 Cramps Home Meds: Home Meds Methylcellulose (with Sugar) [Citrucel] 1 dose PO DAILY 09/25/17 [History] Past Medical History - Past Health History Medical/Surgical History: Denies Medical/Surgical History HEENT History: Reports: Impaired Vision Other HEENT History: WEARS CORRECTIVE LENS Cardiovascular History: Reports: Other (See Below) Other Cardiovascular History: PVC's and going to have an ablation she states for the PVC's Respiratory History: Reports: None Other Respiratory History: HX OF TOBACCO HABITUATION Gastrointestinal History: Reports: GERD, Other (See Below) Other Gastrointestinal History: HX OF CDIFF INFECTION Genitourinary History: Reports: None 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: , 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 Other OB/BYN History: T.A.- May 09, 2015 Musculoskeletal History: Reports: Fracture, Other (See Below) Other Musculoskeletal History: ACL repaired Neurological History: Reports: Migraines Psychiatric History: Reports: Anxiety, Depression Other Psychiatric History: post depression Endocrine/Metabolic History: Reports: Hypothyroidism Hematologic History: Reports: None Immunologic History: Reports: None Oncologic (Cancer) History: Reports: None Dermatologic History: Reports: None, Other (See Below) Other Dermatologic History: HX OF HSV INFECTION - Infectious Disease History Infectious Disease History: Reports: C-Difficile, Chicken Pox, Herpes - Past Surgical History Head Surgeries/Procedures: Reports: None HEENT Surgical History: Reports: Adenoidectomy, Tonsillectomy Other HEENT Surgeries/Procedures: Wears glasses for vision correction Cardiovascular Surgical History: Reports: None GI Surgical History: Reports: Colonoscopy Female Surgical History: Reports: Dilitation & Evacuation, Other (See Below) Other Female Surgeries/Procedures: cervical bx Musculoskeletal Surgical History: Reports: Arthroscopic Knee, Other (See Below) Other Musculoskeletal Surgeries/Procedures:: ACL repair Social & Family History - Family History Family Medical History: Noncontributory - Tobacco Use Smoking Status *Q: Former Smoker Years of Tobacco use: 16 Packs/Tins Daily: 1 Used Tobacco, but Quit: Yes Month/Year Tobacco Last Used: 09/08/17 Second Hand Smoke Exposure: No - Caffeine Use Caffeine Use: Reports: Coffee, Soda Other Caffeine Use: 24oz daily - Alcohol Use Days Per Week of Alcohol Use: 1 Number of Drinks Per Day: 4 Total Drinks Per Week: 4 - Recreational Drug Use Recreational Drug Use: No Drug Use in Last 12 Months: Yes Recreational Drug Type: Reports: Marijuana/Hashish Recreational Drug Use Frequency: Rarely - Living Situation & Occupation Living situation: Reports: with Family ED ROS GENERAL - Review of Systems Review Of Systems: ROS reveals no pertinent complaints other than HPI. ED EXAM, GENERAL - Physical Exam Exam: See Below Exam Limited By: No Limitations General Appearance: Alert, WD/WN, No Apparent Distress Eye Exam: Bilateral Eye: Conjunctival Injection, EOMI, PERRL (3) Ears: Normal External Exam, Hearing Grossly Normal Nose: Normal Inspection Throat/Mouth: Normal Inspection, Normal Voice, No Airway Compromise Head: Atraumatic, Normocephalic Neck: Normal Inspection, Supple, Non-Tender, Full Range of Motion Respiratory/Chest: No Respiratory Distress, Lungs Clear, Normal Breath Sounds, No Accessory Muscle Use, Chest Non-Tender Cardiovascular: Normal Peripheral Pulses, Regular Rate, Rhythm, No Edema, No Gallop, No JVD, No Murmur, No Rub Peripheral Pulses: 2+: Radial (L), Radial (R) GI/Abdominal: Normal Bowel Sounds, Soft, Non-Tender, No Organomegaly, No Distention, No Abnormal Bruit, No Mass (Female) Exam: Deferred Rectal (Female) Exam: Deferred Back Exam: Normal Inspection, Full Range of Motion, NT Extremities: Normal Inspection, Normal Range of Motion, Non-Tender, Normal Capillary Refill, No Pedal Edema Neurological: Alert, Oriented, CN II-XII Intact, Normal Cognition, Normal Gait, Normal Reflexes, No Motor/Sensory Deficits Psychiatric: Depressed Mood, Flat Affect Skin Exam: Warm, Dry, Intact, Normal Color, No Rash Lymphatic: No Adenopathy Course - Vital Signs Last Recorded V/S: Last Vital Signs Temp 98 F 10/10/17 06:59 Pulse 116 H 10/10/17 06:59 Resp 18 10/10/17 06:59 BP 120/71 10/10/17 06:59 Pulse Ox 98 10/10/17 06:59 - Orders/Labs/Meds Orders: Active Orders 24 hr Category Date Time Status DRUG SCREEN URINE BIORAD [URCHEM] Stat Lab 10/10/17 07:28 Ordered HCG QUALITATIVE,URINE [URCHEM] Stat Lab 10/10/17 07:28 Ordered UA W/MICROSCOPIC [URIN] Stat Lab 10/10/17 07:28 Ordered Labs: Laboratory Tests 10/10/17 10/10/17 10/10/17 Range/Units 07:26 07:26 07:28 WBC 3.4 L (5.0-10.0) 10^3/uL RBC 4.34 (4.2-5.4) 10^6/uL Hgb 13.3 (12.0-16.0) g/dL Hct 40.7 (37.0-47.0) % MCV 93.8 (80-100) fL MCH 30.6 (27.0-34.0) pg MCHC 32.7 L (33.0-35.0) g/dL Plt Count 198 (150-450) 10^3/uL Neut % (Auto) 33.1 L (42.2-75.2) % Lymph % (Auto) 52.0 H (20.5-50.1) % [place] % (Auto) 14.0 H (2-8) % Eos % (Auto) 0.6 L (1.0-3.0) % Baso % (Auto) 0.3 (0.0-1.0) % Sodium 138 (135-145) mmol/L Potassium 3.4 L (3.6-5.0) mmol/L Chloride 105 (101-111) mmol/L Carbon Dioxide 26.0 (21.0-31.0) mmol/L Anion Gap 10.4 BUN 9 (7-18) mg/dL Creatinine 0.8 (0.6-1.3) mg/dL Est Cr Clr Drug Dosing 109.17 mL/min Estimated GFR (MDRD) > 60 BUN/Creatinine Ratio 11.25 Glucose 112 H (74-105) mg/dL Calcium 8.3 L (8.4-10.2) mg/dl Total Bilirubin 0.4 (0.2-1.0) mg/dL AST 29 (10-42) IU/L ALT 25 (10-60) IU/L Alkaline Phosphatase 62 (42-121) IU/L Total Protein 7.0 (6.7-8.2) g/dl Albumin 3.9 (3.2-5.5) g/dl Globulin 3.1 Albumin/Globulin Ratio 1.26 Urine Color Yellow (YELLOW) Urine Appearance Clear (CLEAR) Urine pH 6.0 (5.0-9.0) Ur Specific [place] <= 1.005 (1.005-1.030) Urine Protein Negative (NEGATIVE) Urine Glucose (UA) Negative (NEGATIVE) Urine Ketones Negative (NEGATIVE) Urine Occult Blood Negative (NEGATIVE) Urine Nitrite Negative (NEGATIVE) Urine Bilirubin Negative (NEGATIVE) Urine Urobilinogen 0.2 (0.2-1.0) mg/dL Ur Leukocyte Esterase Negative (NEGATIVE) Urine RBC Not seen /HPF Urine WBC 0-5 (0-5/HPF) /HPF Ur Epithelial Cells Many H /HPF Amorphous Sediment Few (0/HPF) /HPF Urine Bacteria Few (0-FEW/HPF) /HPF Urine HCG, Qual Urine Opiates Screen (NEGATIVE) Ur Oxycodone Screen (NEGATIVE) Urine Methadone Screen (NEGATIVE) Ur Barbiturates Screen (NEGATIVE) U Tricyclic Antidepress (NEGATIVE) Ur Phencyclidine Scrn (NEGATIVE) Ur Amphetamine Screen (NEGATIVE) U Methamphetamines Scrn (NEGATIVE) Urine MDMA Screen (NEGATIVE) U Benzodiazepines Scrn (NEGATIVE) Urine Cocaine Screen (NEGATIVE) U Marijuana (THC) Screen (NEGATIVE) Ethyl Alcohol < 5 mg/dL 10/10/17 10/10/17 Range/Units 07:28 07:28 WBC (5.0-10.0) 10^3/uL RBC (4.2-5.4) 10^6/uL Hgb (12.0-16.0) g/dL Hct (37.0-47.0) % MCV (80-100) fL MCH (27.0-34.0) pg MCHC (33.0-35.0) g/dL Plt Count (150-450) 10^3/uL Neut % (Auto) (42.2-75.2) % Lymph % (Auto) (20.5-50.1) % [place] % (Auto) (2-8) % Eos % (Auto) (1.0-3.0) % Baso % (Auto) (0.0-1.0) % Sodium (135-145) mmol/L Potassium (3.6-5.0) mmol/L Chloride (101-111) mmol/L Carbon Dioxide (21.0-31.0) mmol/L Anion Gap BUN (7-18) mg/dL Creatinine (0.6-1.3) mg/dL Est Cr Clr Drug Dosing mL/min Estimated GFR (MDRD) BUN/Creatinine Ratio Glucose (74-105) mg/dL Calcium (8.4-10.2) mg/dl Total Bilirubin (0.2-1.0) mg/dL AST (10-42) IU/L ALT (10-60) IU/L Alkaline Phosphatase (42-121) IU/L Total Protein (6.7-8.2) g/dl Albumin (3.2-5.5) g/dl Globulin Albumin/Globulin Ratio Urine Color (YELLOW) Urine Appearance (CLEAR) Urine pH (5.0-9.0) Ur Specific [place] (1.005-1.030) Urine Protein (NEGATIVE) Urine Glucose (UA) (NEGATIVE) Urine Ketones (NEGATIVE) Urine Occult Blood (NEGATIVE) Urine Nitrite (NEGATIVE) Urine Bilirubin (NEGATIVE) Urine Urobilinogen (0.2-1.0) mg/dL Ur Leukocyte Esterase (NEGATIVE) Urine RBC /HPF Urine WBC (0-5/HPF) /HPF Ur Epithelial Cells /HPF Amorphous Sediment (0/HPF) /HPF Urine Bacteria (0-FEW/HPF) /HPF Urine HCG, Qual Negative Urine Opiates Screen Negative (NEGATIVE) Ur Oxycodone Screen Negative (NEGATIVE) Urine Methadone Screen Negative (NEGATIVE) Ur Barbiturates Screen Negative (NEGATIVE) U Tricyclic Antidepress Negative (NEGATIVE) Ur Phencyclidine Scrn Negative (NEGATIVE) Ur Amphetamine Screen Negative (NEGATIVE) U Methamphetamines Scrn Negative (NEGATIVE) Urine MDMA Screen Negative (NEGATIVE) U Benzodiazepines Scrn Negative (NEGATIVE) Urine Cocaine Screen Negative (NEGATIVE) U Marijuana (THC) Screen Positive H (NEGATIVE) Ethyl Alcohol mg/dL Influenza A & B: Negative Meds: Medications Discontinued Medications Generic Name Dose Route Start Last Admin Trade Name [place] PRN Reason Stop Dose Admin Ondansetron HCl 4 mg 10/10/17 07:29 10/10/17 07:34 Zofran Odt PO 10/10/17 07:30 4 mg ONETIME ONE Administration Departure - Departure Time of Disposition: 08:05 Disposition: Home, Self-Care 01 Condition: Fair Clinical Impression: Nausea & vomiting Qualifiers: Vomiting type: unspecified Vomiting Intractability: non-intractable Qualified Code(s): R11.2 - Nausea with vomiting, unspecified - Discharge Information Instructions: Nausea and Vomiting, Adult, [id number] Referrals: Mercedes Iyer MD [Primary Care Provider] - Forms: ED Department Discharge Additional Instructions: Drink plenty of water Rest Follow up with your primary care facility - My Orders Last 24 Hours: My Active Orders 10/10/17 07:28 DRUG SCREEN URINE BIORAD [URCHEM] Stat HCG QUALITATIVE,URINE [URCHEM] Stat UA W/MICROSCOPIC [URIN] Stat - Assessment/Plan Last 24 Hours: My Active Orders 10/10/17 07:28 DRUG SCREEN URINE BIORAD [URCHEM] Stat HCG QUALITATIVE,URINE [URCHEM] Stat UA W/MICROSCOPIC [URIN] Stat
[2017-10-10 07:50] LABS: CHLORIDE,CL 105 mmol/L (101-111); SODIUM,NA 138 mmol/L (135-145)
== END 2017-10-10 08:15 | disposition home or self-care (01) ==
LOC: DL.ED 06:57
DX: R11.2 Nausea with vomiting, unspecified (principal); Z88.1 Allergy status to other antibiotic agents; Z88.0 Allergy status to penicillin; Z79.899 Other long term (current) drug therapy; Z87.891 Personal history of nicotine dependence
CPT/HCPCS: 36415; 80053; 80305; 81001; 81025; 85025; 87804; 99283; A9270; G0480

== ENCOUNTER 2017-12-06 12:36 | Emergency (ER) | payer MEDICAID ==
[2017-12-06 13:12] VITALS: BP 114/77
[2017-12-06] MEDS ORDERED: Sodium Chloride 0.9% 10 ML Syringe FLUSH PRN (13:29)
[2017-12-06] MEDS ORDERED: Ondansetron 4 MG/2 ML SDV IV ONE (13:32)
[2017-12-06] MEDS ORDERED: Sodium Chloride 0.9% 1,000 ML IV ONE (13:32)
[2017-12-06 14:02] LABS: CHLORIDE,CL 102 mmol/L (101-111); SODIUM,NA 140 mmol/L (135-145)
--- NOTE | 2017-12-06 14:05 | CT ---
Clinical history: 32-year-old 186 pound female with history of migraines and recent cardiac ablation (procedure 4 days ago) who is now complaining of dizziness, visual disturbances and some left arm "di sconnect". Rule out intracranial abnormality. Scan technique: Volume acquisition of data emergency unenhanced CT scan of the head and brain obtaine d while the patient was lying supine on the Siemens multi slice scanner [place], [place]. All data archived in the PACS system for storage and study (old/brain windows). Interpretation: Negative exam. 1. Uniformly thick bony calvarium and symmetric clear pneumatization of the mastoid/paranasal sinuses . TMJs. 2. No sign of mucoperiosteal thickening sinus wall, antral soft tissue mass or pathologic air-fluid l evels. Nasal abdomen is midline. 3. Metric yoon-white matter pattern. Underlying mirror-image normal ventricular system. No focal area s of ischemic infarct or signs of acute intracerebral/intraventricular/subarachnoid bleed. 4. Normal physiologic midline pineal calcification. Symmetric cord plexus and falx calcifications ove r the convexity. 5. No supratentorial or posterior fossa mass lesion. 6. No skull fracture, underlying brain contusion or epidural/subdural hematoma. CONCLUSION: Negative unenhanced CT scan head and brain.
[2017-12-06] MEDS ORDERED: cefTRIAXone 250 MG Vial IM ONE (15:48)
[2017-12-06] MEDS ORDERED: Azithromycin 250 MG Tab PO ONE (15:49)
[2017-12-06] MEDS ORDERED: Lidocaine 1% 30 ML SDV ONE (16:04)
--- NOTE | 2017-12-07 07:46 | EDM.PDOC ---
Scribed by Evonne Gold 12/06/17 [id number] for Ann Reeves NP ED HPI GENERAL MEDICAL PROBLEM - General Chief Complaint: General Stated Complaint: HAD AN ABLASION DONE/LEG IS NUMB [id number] Time Seen by Provider: 12/06/17 13:23 Source of Information: Reports: Patient, RN, RN Notes Reviewed History Limitations: Reports: No Limitations - History of Present Illness INITIAL COMMENTS - FREE TEXT/NARRATIVE: Patient presents to ER with complaint of dizziness, blurred vision, blind spots which come and go. Disorientation of left hand. Right leg numb from knee down. This is different from normal auras with migraines. She has nausea, hot flashes and headache 8/10. She has had no chest pain, shortness of breath, vomiting diarrhea, fever or chills. Onset: Sudden Onset Date: 12/05/17 Duration: Getting Worse Location: Reports: Generalized Quality: Reports: Ache Severity: Moderate Improves with: Reports: None Worsens with: Reports: None Associated Symptoms: Reports: No Other Symptoms Headache Pain Score (Numeric/FACES): 8 - Related Data Allergies Allergy/AdvReac Type Severity Reaction Status Date / Time clindamycin AdvReac Nausea and Verified 12/06/17 13:08 Vomiting Penicillins AdvReac Abdominal Verified 12/06/17 13:08 Cramps Home Meds: Home Meds Acetaminophen 1,000 mg PO DAILY PRN 11/23/17 [History] Ibuprofen 800 mg PO PRN 12/06/17 [History] Past Medical History - Past Health History Medical/Surgical History: Denies Medical/Surgical History HEENT History: Reports: Impaired Vision Other HEENT History: WEARS CORRECTIVE LENS Cardiovascular History: Reports: Other (See Below) Other Cardiovascular History: PVC's and going to have an ablation she states for the PVC's Respiratory History: Reports: None Other Respiratory History: HX OF TOBACCO HABITUATION Gastrointestinal History: Reports: GERD, Other (See Below) Other Gastrointestinal History: HX OF CDIFF INFECTION Genitourinary History: Reports: None [employer] History: Reports: , Therapeutic Other OB/BYN History: T.A.- May 09, 2015 Musculoskeletal History: Reports: Fracture, Other (See Below) Other Musculoskeletal History: ACL repaired Neurological History: Reports: Migraines Psychiatric History: Reports: Anxiety, Depression Other Psychiatric History: post depression Endocrine/Metabolic History: Reports: Hypothyroidism Hematologic History: Reports: None Immunologic History: Reports: None Oncologic (Cancer) History: Reports: None Dermatologic History: Reports: None, Other (See Below) Other Dermatologic History: HX OF HSV INFECTION - Infectious Disease History Infectious Disease History: Reports: C-Difficile, Chicken Pox, Herpes - Past Surgical History Head Surgeries/Procedures: Reports: None HEENT Surgical History: Reports: Adenoidectomy, Tonsillectomy Other HEENT Surgeries/Procedures: Wears glasses for vision correction Cardiovascular Surgical History: Reports: None GI Surgical History: Reports: Colonoscopy Female Surgical History: Reports: Dilitation & Evacuation, Other (See Below) Other Female Surgeries/Procedures: cervical bx Musculoskeletal Surgical History: Reports: Arthroscopic Knee, Other (See Below) Other Musculoskeletal Surgeries/Procedures:: ACL repair Social & Family History - Family History Family Medical History: Noncontributory - Tobacco Use Smoking Status *Q: Never Smoker Second Hand Smoke Exposure: No - Caffeine Use Caffeine Use: Reports: Coffee Other Caffeine Use: 24oz daily - Recreational Drug Use Recreational Drug Use: No - Living Situation & Occupation Living situation: Reports: with Family ED ROS GENERAL - Review of Systems Review Of Systems: ROS reveals no pertinent complaints other than HPI. ED EXAM, GENERAL - Physical Exam Exam: See Below Exam Limited By: No Limitations General Appearance: Alert, WD/WN, No Apparent Distress Eye Exam: Bilateral Eye: EOMI, Normal Inspection Ears: Normal External Exam, Normal Canal, Hearing Grossly Normal, Normal TMs Nose: Normal Inspection, Normal Mucosa, No Blood Throat/Mouth: Normal Inspection, Normal Lips, Normal Teeth, Normal Gums, Normal Oropharynx, Normal Voice, No Airway Compromise Head: Atraumatic, Normocephalic Neck: Normal Inspection, Supple, Non-Tender, Full Range of Motion Respiratory/Chest: No Respiratory Distress, Lungs Clear, Normal Breath Sounds, No Accessory Muscle Use, Chest Non-Tender Cardiovascular: Normal Peripheral Pulses, Regular Rate, Rhythm, No Edema, No Gallop, No JVD, No Murmur, No Rub GI/Abdominal: Normal Bowel Sounds, Soft, Non-Tender, No Organomegaly, No Distention, No Abnormal Bruit, No Mass (Female) Exam: Deferred Rectal (Female) Exam: Deferred Back Exam: Normal Inspection, Full Range of Motion, NT Extremities: Normal Inspection, Normal Range of Motion, Non-Tender, Normal Capillary Refill, No Pedal Edema Neurological: Alert, Oriented, Other (disorientation of right arm/hand. Numbness left leg. Headache. Dizziness.) Psychiatric: Normal Affect, Normal Mood Skin Exam: Warm, Dry, Intact, Normal Color, No Rash Lymphatic: No Adenopathy EKG INTERPRETATION EKG Date: 12/06/17 Time: 14:03 Rhythm: Other (sinus bradycardia) Rate (Beats/Min): 53 [place]: Normal P-Wave: Present QRS: Normal ST-T: Normal QT: Normal Course - Vital Signs Last Recorded V/S: Last Vital Signs Temp 98.4 F 12/06/17 13:09 Pulse 70 12/06/17 13:09 Resp 16 12/06/17 13:09 BP 114/77 12/06/17 13:09 Pulse Ox 99 12/06/17 13:09 - Orders/Labs/Meds Orders: Active Orders 24 hr Category Date Time Status EKG Documentation Completion [RC] STAT Care 12/06/17 13:30 Active Peripheral IV Care [RC] . DIRECTED Care 12/06/17 13:30 Active DRUG SCREEN URINE BIORAD [URCHEM] Stat Lab 12/06/17 14:00 Ordered HCG QUALITATIVE,URINE [URCHEM] Stat Lab 12/06/17 14:00 Ordered UA W/MICROSCOPIC [URIN] Stat Lab 12/06/17 14:00 Ordered Peripheral IV Insertion Adult [OM.PC] Stat Oth 12/06/17 13:30 Ordered Labs: Laboratory Tests 12/06/17 12/06/17 12/06/17 Range/Units 13:38 13:38 13:38 WBC 5.6 (5.0-10.0) 10^3/uL RBC 4.25 (4.2-5.4) 10^6/uL Hgb 13.0 (12.0-16.0) g/dL Hct 39.9 (37.0-47.0) % MCV 93.9 (80-100) fL MCH 30.6 (27.0-34.0) pg MCHC 32.6 L (33.0-35.0) g/dL Plt Count 233 (150-450) 10^3/uL Neut % (Auto) 49.9 (42.2-75.2) % Lymph % (Auto) 42.0 (20.5-50.1) % [place] % (Auto) 6.2 (2-8) % Eos % (Auto) 1.4 (1.0-3.0) % Baso % (Auto) 0.5 (0.0-1.0) % PT 9.3 (9.0-12.0) SEC INR 0.9 (0.9-1.2) Sodium 140 (135-145) mmol/L Potassium 4.5 (3.6-5.0) mmol/L Chloride 102 (101-111) mmol/L Carbon Dioxide 28.0 (21.0-31.0) mmol/L Anion Gap 14.5 BUN 11 (7-18) mg/dL Creatinine 0.7 (0.6-1.3) mg/dL Est Cr Clr Drug Dosing 124.77 mL/min Estimated GFR (MDRD) > 60 BUN/Creatinine Ratio 15.71 Glucose 96 (74-105) mg/dL Calcium 10.0 D (8.4-10.2) mg/dl Total Bilirubin < 0.1 L (0.2-1.0) mg/dL AST 19 (10-42) IU/L ALT 17 (10-60) IU/L Alkaline Phosphatase 63 (42-121) IU/L Troponin I 0.13 H* (0.00-0.02) ng/ml Total Protein 7.9 (6.7-8.2) g/dl Albumin 4.3 (3.2-5.5) g/dl Globulin 3.6 Albumin/Globulin Ratio 1.19 Urine Color (YELLOW) Urine Appearance (CLEAR) Urine pH (5.0-9.0) Ur Specific [place] (1.005-1.030) Urine Protein (NEGATIVE) Urine Glucose (UA) (NEGATIVE) Urine Ketones (NEGATIVE) Urine Occult Blood (NEGATIVE) Urine Nitrite (NEGATIVE) Urine Bilirubin (NEGATIVE) Urine Urobilinogen (0.2-1.0) mg/dL Ur Leukocyte Esterase (NEGATIVE) Urine RBC /HPF Urine WBC (0-5/HPF) /HPF Ur Epithelial Cells /HPF Amorphous Sediment (0/HPF) /HPF Urine Bacteria (0-FEW/HPF) /HPF Urine Mucus /LPF Urine HCG, Qual Urine Opiates Screen (NEGATIVE) Ur Oxycodone Screen (NEGATIVE) Urine Methadone Screen (NEGATIVE) Ur Barbiturates Screen (NEGATIVE) U Tricyclic Antidepress (NEGATIVE) Ur Phencyclidine Scrn (NEGATIVE) Ur Amphetamine Screen (NEGATIVE) U Methamphetamines Scrn (NEGATIVE) Urine MDMA Screen (NEGATIVE) U Benzodiazepines Scrn (NEGATIVE) Urine Cocaine Screen (NEGATIVE) U Marijuana (THC) Screen (NEGATIVE) 12/06/17 12/06/17 12/06/17 Range/Units 14:00 14:00 14:00 WBC (5.0-10.0) 10^3/uL RBC (4.2-5.4) 10^6/uL Hgb (12.0-16.0) g/dL Hct (37.0-47.0) % MCV (80-100) fL MCH (27.0-34.0) pg MCHC (33.0-35.0) g/dL Plt Count (150-450) 10^3/uL Neut % (Auto) (42.2-75.2) % Lymph % (Auto) (20.5-50.1) % [place] % (Auto) (2-8) % Eos % (Auto) (1.0-3.0) % Baso % (Auto) (0.0-1.0) % PT (9.0-12.0) SEC INR (0.9-1.2) Sodium (135-145) mmol/L Potassium (3.6-5.0) mmol/L Chloride (101-111) mmol/L Carbon Dioxide (21.0-31.0) mmol/L Anion Gap BUN (7-18) mg/dL Creatinine (0.6-1.3) mg/dL Est Cr Clr Drug Dosing mL/min Estimated GFR (MDRD) BUN/Creatinine Ratio Glucose (74-105) mg/dL Calcium (8.4-10.2) mg/dl Total Bilirubin (0.2-1.0) mg/dL AST (10-42) IU/L ALT (10-60) IU/L Alkaline Phosphatase (42-121) IU/L Troponin I (0.00-0.02) ng/ml Total Protein (6.7-8.2) g/dl Albumin (3.2-5.5) g/dl Globulin Albumin/Globulin Ratio Urine Color Yellow (YELLOW) Urine Appearance Slightly cloudy (CLEAR) Urine pH 7.0 (5.0-9.0) Ur Specific [place] 1.010 (1.005-1.030) Urine Protein Negative (NEGATIVE) Urine Glucose (UA) Negative (NEGATIVE) Urine Ketones Negative (NEGATIVE) Urine Occult Blood Large H (NEGATIVE) Urine Nitrite Negative (NEGATIVE) Urine Bilirubin Negative (NEGATIVE) Urine Urobilinogen 0.2 (0.2-1.0) mg/dL Ur Leukocyte Esterase Small H (NEGATIVE) Urine RBC 5-10 H /HPF Urine WBC 5-10 H (0-5/HPF) /HPF Ur Epithelial Cells Moderate H /HPF Amorphous Sediment Rare (0/HPF) /HPF Urine Bacteria Rare (0-FEW/HPF) /HPF Urine Mucus Few H /LPF Urine HCG, Qual Negative Urine Opiates Screen Negative (NEGATIVE) Ur Oxycodone Screen Negative (NEGATIVE) Urine Methadone Screen Negative (NEGATIVE) Ur Barbiturates Screen Negative (NEGATIVE) U Tricyclic Antidepress Negative (NEGATIVE) Ur Phencyclidine Scrn Negative (NEGATIVE) Ur Amphetamine Screen Negative (NEGATIVE) U Methamphetamines Scrn Negative (NEGATIVE) Urine MDMA Screen Negative (NEGATIVE) U Benzodiazepines Scrn Negative (NEGATIVE) Urine Cocaine Screen Negative (NEGATIVE) U Marijuana (THC) Screen Negative (NEGATIVE) Meds: Medications Discontinued Medications Generic Name Dose Route Start Last Admin Trade Name Levarq PRN Reason Stop Dose Admin Azithromycin 1,000 mg 12/06/17 15:49 12/06/17 16:09 Zithromax PO 12/06/17 15:50 1,000 mg ONETIME ONE Administration Ceftriaxone Sodium 250 mg 12/06/17 15:48 12/06/17 16:09 Rocephin IM 12/06/17 15:49 250 mg ONETIME ONE Administration Sodium Chloride 1,000 mls @ 999 mls/hr 12/06/17 13:32 12/06/17 14:07 Normal Saline IV 12/06/17 14:32 999 mls/hr .BOLUS ONE Administration Lidocaine HCl Confirm 12/06/17 16:04 12/06/17 16:10 Xylocaine-Mpf 1% Administered 12/06/17 16:05 30 ml Dose Administration 30 ml .ROUTE .STK-MED ONE Ondansetron HCl 4 mg 12/06/17 13:32 12/06/17 14:07 Zofran IV 12/06/17 13:33 4 mg ONETIME ONE Administration Sodium Chloride 10 ml 12/06/17 13:29 12/06/17 14:07 Saline Flush FLUSH 10 ml ASDIRECTED PRN Administration Keep Vein Open - Radiology Interpretation Free Text/Narrative:: Head CT: Negative unenhanced CT scan head and brain. See rad report. - Re-Assessments/Exams Free Text/Narrative Re-Assessment/Exam: 12/06/17 14:48 Discussed pt case with Dr. Chen who states he is not concerned with the elevated troponin given the recent cardiac ablation. 1449 Patient states her headache has lessened some. She states she feels as though she is "dreaming". She states she still feels "funny". It was explained to her that the CT of her head had no acute findings. She states understanding. I highly encouraged her to follow up with her PCP on Thursday for a possible referral to Neurology. Patient states understanding. Departure - Departure Time of Disposition: 15:45 Disposition: Home, Self-Care 01 Condition: Fair Clinical Impression: Bacterial vaginosis Migraine headache with aura Qualifiers: Status migrainosus presence: without status migrainosus Intractability: not intractable Qualified Code(s): G43.109 - Migraine with aura, not intractable, without status migrainosus - Discharge Information Instructions: Migraine Headache, [id number], Bacterial Vaginosis, Easy-to- Read, Recurrent Migraine Headache, [id number] Forms: ED Department Discharge Additional Instructions: Continue to use Tylenol and ibuprofen as directed for headache. Follow up with your primary care facility on Thursday. Drink plenty of water Also follow up with Cardiology. RX: Metronidazole - My Orders Last 24 Hours: My Active Orders 12/06/17 13:30 EKG Documentation Completion [RC] STAT Peripheral IV Care [RC] . DIRECTED Peripheral IV Insertion Adult [OM.PC] Stat 12/06/17 14:00 DRUG SCREEN URINE BIORAD [URCHEM] Stat HCG QUALITATIVE,URINE [URCHEM] Stat UA W/MICROSCOPIC [URIN] Stat - Assessment/Plan Last 24 Hours: My Active Orders 12/06/17 13:30 EKG Documentation Completion [RC] STAT Peripheral IV Care [RC] . DIRECTED Peripheral IV Insertion Adult [OM.PC] Stat 12/06/17 14:00 DRUG SCREEN URINE BIORAD [URCHEM] Stat HCG QUALITATIVE,URINE [URCHEM] Stat UA W/MICROSCOPIC [URIN] Stat I have read and agree with the documentation that has been completed regarding this visit. By signing this record, I attest that the documentation was completed in my physical presence and is an accurate record of the encounter.
--- NOTE | 2017-12-08 13:26 | EKG ---
12/06/2017- KARIS WILSON - FINDINGS: EKG shows a sinus bradycardia. Heart rate is 53 beats per minute. No ST-T wave changes. [facility] /[id number]
== END 2017-12-06 16:13 | disposition home or self-care (01) ==
LOC: DL.ED 12:36
DX: G43.109 Migraine with aura, not intractable, without status migrainosus (principal); N76.0 Acute vaginitis; Z88.1 Allergy status to other antibiotic agents; Z88.0 Allergy status to penicillin; Z79.899 Other long term (current) drug therapy
CPT/HCPCS: 36415; 70450; 80053; 80305; 81001; 81025; 84484; 85025; 85610; 93005; 96361; 96372; 96374; 99285; A9270; J0696; J2405; J7030; J7050

== ENCOUNTER 2018-01-05 22:43 | Observation (INO) | payer MEDICAID ==
[2018-01-05] MEDS ORDERED: Sodium Chloride 0.9% 1,000 ML IV ONE (22:57)
[2018-01-05 23:27] LABS: CHLORIDE,CL 102 mmol/L (101-111); SODIUM,NA 138 mmol/L (135-145)
--- NOTE | 2018-01-06 00:05 | EDM.PDOC ---
ED HPI GENERAL MEDICAL PROBLEM - General Chief Complaint: Cardiovascular Problem Stated Complaint: SOB AND LIGHT HEADED [id number] Time Seen by Provider: 01/05/18 23:05 Source of Information: Reports: Patient History Limitations: Reports: No Limitations - History of Present Illness INITIAL COMMENTS - FREE TEXT/NARRATIVE: ED with c/o left chest and arm pain at home and left arm felt funny. Episode similar with SOB in am. Patient notes hx of cardiac ablation for "bigemeny" on in [place]. [place] light headed earlier none now. [place] great one week ago, past week feeling more tired. No change in diet, or activity. Has had cardiac echo's done in past, No prior angiograms. Family with cardiac hx starting in 50's. Chest Pain Score (Numeric/FACES): 0 - Related Data Allergies Allergy/AdvReac Type Severity Reaction Status Date / Time clindamycin AdvReac Nausea and Verified 01/05/18 22:52 Vomiting Penicillins AdvReac Abdominal Verified 01/05/18 22:52 Cramps Home Meds: Home Meds Acetaminophen 1,000 mg PO DAILY PRN 11/23/17 [History] Ibuprofen 800 mg PO PRN 12/06/17 [History] Albuterol [Proventil HFA] 2 puff INH Q4H PRN 01/06/18 [History] Multivitamin [Flintstones] 1 each PO DAILY 01/06/18 [History] Past Medical History - Past Health History Medical/Surgical History: Denies Medical/Surgical History HEENT History: Reports: Impaired Vision Other HEENT History: WEARS CORRECTIVE LENS Cardiovascular History: Reports: Other (See Below) Other Cardiovascular History: PVC's. Ablation done on december 01, 2017 Respiratory History: Reports: None Other Respiratory History: HX OF TOBACCO HABITUATION Gastrointestinal History: Reports: GERD, Other (See Below) Other Gastrointestinal History: HX OF CDIFF INFECTION Genitourinary History: Reports: None [employer] History: Reports: , Therapeutic Other OB/BYN History: T.A.- May 09, 2015 Musculoskeletal History: Reports: Fracture, Other (See Below) Other Musculoskeletal History: ACL repaired Neurological History: Reports: Migraines Psychiatric History: Reports: Anxiety, Depression Other Psychiatric History: post depression Endocrine/Metabolic History: Reports: Hypothyroidism Hematologic History: Reports: None Immunologic History: Reports: None Oncologic (Cancer) History: Reports: None Dermatologic History: Reports: None, Other (See Below) Other Dermatologic History: HX OF HSV INFECTION - Infectious Disease History Infectious Disease History: Reports: C-Difficile, Chicken Pox, Herpes - Past Surgical History Head Surgeries/Procedures: Reports: None HEENT Surgical History: Reports: Adenoidectomy, Tonsillectomy Other HEENT Surgeries/Procedures: Wears glasses for vision correction Cardiovascular Surgical History: Reports: None GI Surgical History: Reports: Colonoscopy Female Surgical History: Reports: Dilitation & Evacuation, Other (See Below) Other Female Surgeries/Procedures: cervical bx Musculoskeletal Surgical History: Reports: Arthroscopic Knee, Other (See Below) Other Musculoskeletal Surgeries/Procedures:: ACL repair Social & Family History - Family History Family Medical History: Noncontributory - Tobacco Use Smoking Status *Q: Current Every Day Smoker Years of Tobacco use: 10 Packs/Tins Daily: 10 - Caffeine Use Caffeine Use: Reports: Soda Other Caffeine Use: 24oz daily - Recreational Drug Use Recreational Drug Use: No - Living Situation & Occupation Living situation: Reports: with Family ED ROS GENERAL - Review of Systems Review Of Systems: See Below Constitutional: Reports: Fatigue HEENT: Reports: No Symptoms Respiratory: Reports: No Symptoms Cardiovascular: Reports: Chest Pain, Lightheadedness, Palpitations. Denies: Dyspnea on Exertion, Syncope GI/Abdominal: Reports: No Symptoms : Reports: No Symptoms Musculoskeletal: Reports: No Symptoms Skin: Reports: No Symptoms Neurological: Reports: No Symptoms ED EXAM, GENERAL - Physical Exam Exam: See Below Exam Limited By: No Limitations General Appearance: Alert, No Apparent Distress, Anxious Eye Exam: Bilateral Eye: EOMI Ears: Normal External Exam Nose: Normal Inspection Throat/Mouth: Normal Inspection Head: Atraumatic, Normocephalic Neck: Normal Inspection, Full Range of Motion Respiratory/Chest: No Respiratory Distress, Lungs Clear, Normal Breath Sounds Cardiovascular: Normal Peripheral Pulses, No Murmur, No Rub, Other (Monitor, underlying sinus with ocassional PVC"s with rare bigemeny runs 2-3 seconds.) Course - Vital Signs Last Recorded V/S: Last Vital Signs Temp 98.5 F 01/05/18 23:20 Pulse 66 01/05/18 23:20 Resp 17 01/05/18 23:20 BP 139/75 01/05/18 23:20 Pulse Ox 100 01/05/18 23:20 - Orders/Labs/Meds Orders: Active Orders 24 hr Category Date Time Status EKG 12 Lead [EKG Documentation Completion] [RC] URGENT Care 01/05/18 22:50 Active Labs: Laboratory Tests 01/05/18 01/05/18 01/05/18 Range/Units 23:00 23:00 23:00 WBC 9.1 (5.0-10.0) 10^3/uL RBC 4.20 (4.2-5.4) 10^6/uL Hgb 12.7 (12.0-16.0) g/dL Hct 38.8 (37.0-47.0) % MCV 92.4 (80-100) fL MCH 30.2 (27.0-34.0) pg MCHC 32.7 L (33.0-35.0) g/dL Plt Count 271 (150-450) 10^3/uL Neut % (Auto) 41.7 L (42.2-75.2) % Lymph % (Auto) 50.7 H (20.5-50.1) % [place] % (Auto) 6.4 (2-8) % Eos % (Auto) 0.8 L (1.0-3.0) % Baso % (Auto) 0.4 (0.0-1.0) % PT 9.9 (9.0-12.0) SEC INR 1.0 (0.9-1.2) Sodium 138 (135-145) mmol/L Potassium 3.5 L (3.6-5.0) mmol/L Chloride 102 (101-111) mmol/L Carbon Dioxide 27.0 (21.0-31.0) mmol/L Anion Gap 12.5 BUN 9 (7-18) mg/dL Creatinine 0.8 (0.6-1.3) mg/dL Est Cr Clr Drug Dosing 108.44 mL/min Estimated GFR (MDRD) > 60 BUN/Creatinine Ratio 11.25 Glucose 103 (74-105) mg/dL Calcium 9.7 (8.4-10.2) mg/dl Total Bilirubin 0.6 (0.2-1.0) mg/dL AST 22 (10-42) IU/L ALT 18 (10-60) IU/L Alkaline Phosphatase 73 (42-121) IU/L Troponin I < 0.02 (0.00-0.02) ng/ml Total Protein 7.7 (6.7-8.2) g/dl Albumin 4.5 (3.2-5.5) g/dl Globulin 3.2 Albumin/Globulin Ratio 1.41 HCG, Qual Negative Meds: Medications Discontinued Medications Generic Name Dose Route Start Last Admin Trade Name Freq PRN Reason Stop Dose Admin Sodium Chloride 1,000 mls @ 999 mls/hr 01/05/18 22:57 01/05/18 23:10 Normal Saline IV 01/05/18 23:57 999 mls/hr .BOLUS ONE Administration - Re-Assessments/Exams Free Text/Narrative Re-Assessment/Exam: 01/06/18 00:[address] Griffin accepting of patient for observation admission at [facility]. Departure - Departure Time of Disposition: 00:11 Disposition: Refer to Observation Condition: Good Clinical Impression: Bigeminal rhythm, History of radiofrequency ablation (RFA) procedure for cardiac arrhythmia - My Orders Last 24 Hours: My Active Orders 01/05/18 22:50 EKG 12 Lead [EKG Documentation Completion] [RC] URGENT - Assessment/Plan Last 24 Hours: My Active Orders 01/05/18 22:50 EKG 12 Lead [EKG Documentation Completion] [RC] URGENT
[2018-01-06] MEDS ORDERED: Acetaminophen 325 MG Tab PO PRN (00:15)
[2018-01-06] MEDS ORDERED: Sodium Chloride 0.9% 1,000 ML IV SCH (00:15)
[2018-01-06] MEDS ORDERED: Heparin Sodium 5,000 Units/ML Vial SUBCUT SCH (06:00)
[2018-01-06 08:12] VITALS: BP 108/58
--- NOTE | 2018-01-06 11:18 | PCM.HP ---
H&P History of Present Illness - General Date of Service: 01/06/18 Admit Problem/Dx: Admission Diagnosis/Problem Admission Diagnosis/Problem Chest pain at rest Source of Information: Patient History Limitations: Reports: No Limitations - History of Present Illness Initial Comments - Free Text/Narative: The patient presented with complaint of chest pain that started yesterday evening when she was putting her 16 month old baby to bed. Describes the chest pain is located at the precordial area. Intensity was about 4 on a scale of 0- 10. It increases over time up to 8. Patient was having associated diaphoresis and palpitations. These symptoms were similar to what she had prior to her ablation. She denies having significant cough. Denies fever or chills. No headache and no blurring of vision. Onset of Symptoms: Reports: Other (Yesterday) Severity: Moderate Worsens with: Reports: None Associated Symptoms: Reports: Malaise, Shortness of Breath Chest Pain Score (Numeric/FACES): 0 - Related Data Allergies/Adverse Reactions: Allergies Allergy/AdvReac Type Severity Reaction Status Date / Time clindamycin AdvReac Nausea and Verified 01/05/18 22:52 Vomiting Penicillins AdvReac Abdominal Verified 01/05/18 22:52 Cramps Home Medications: Home Meds Acetaminophen 1,000 mg PO DAILY PRN 11/23/17 [History] Ibuprofen 800 mg PO Q6H PRN 12/06/17 [History] Albuterol [Proventil HFA] 2 puff INH Q4H PRN 01/06/18 [History] Multivitamin [Flintstones] 1 each PO DAILY 01/06/18 [History] Past Medical History - Past Health History Medical/Surgical History: Denies Medical/Surgical History HEENT History: Reports: Impaired Vision Other HEENT History: WEARS CORRECTIVE LENS Cardiovascular History: Reports: Other (See Below) Other Cardiovascular History: PVC's. Ablation done on december 01, 2017 Respiratory History: Reports: None Other Respiratory History: HX OF TOBACCO HABITUATION Gastrointestinal History: Reports: GERD, Other (See Below) Other Gastrointestinal History: HX OF CDIFF INFECTION Genitourinary History: Reports: None Other Genitourinary History: hasn't in a few years RANGE SCIENTIST History: Reports: , Therapeutic Other OB/BYN History: T.A.- May 09, 2015 Musculoskeletal History: Reports: Fracture, Other (See Below) Other Musculoskeletal History: ACL repaired Neurological History: Reports: Migraines Psychiatric History: Reports: Anxiety, Depression Other Psychiatric History: post depression Endocrine/Metabolic History: Reports: Hypothyroidism Other Endocrine/Metabolic History: postpardium, not now Hematologic History: Reports: None Immunologic History: Reports: None Oncologic (Cancer) History: Reports: None Dermatologic History: Reports: None, Other (See Below) Other Dermatologic History: HX OF HSV INFECTION - Infectious Disease History Infectious Disease History: Reports: C-Difficile, Chicken Pox, Herpes - Past Surgical History Head Surgeries/Procedures: Reports: None HEENT Surgical History: Reports: Adenoidectomy, Tonsillectomy Other HEENT Surgeries/Procedures: Wears glasses for vision correction Cardiovascular Surgical History: Reports: None GI Surgical History: Reports: Colonoscopy Female Surgical History: Reports: Dilitation & Evacuation, Other (See Below) Other Female Surgeries/Procedures: cervical bx Musculoskeletal Surgical History: Reports: Arthroscopic Knee, Other (See Below) Other Musculoskeletal Surgeries/Procedures:: ACL repair Social & Family History - Family History Family Medical History: Noncontributory Other Cardiac Family History: maternal grandmother et mother have left BBB Oncologic: Reports: Lung Other Oncologic Family History: grandma-lung - Tobacco Use Smoking Status *Q: Current Every Day Smoker Years of Tobacco use: 10 Packs/Tins Daily: 10 Second Hand Smoke Exposure: Yes - Caffeine Use Caffeine Use: Reports: Soda Other Caffeine Use: 24oz daily - Alcohol Use Days Per Week of Alcohol Use: 1 Number of Drinks Per Day: 1 Total Drinks Per Week: 1 Date of Last Drink: 01/02/18 Time of Last Drink: 21:00 - Recreational Drug Use Recreational Drug Use: No - Living Situation & Occupation Living situation: Reports: with Family H&P Review of Systems - Review of Systems: Review Of Systems: See Below General: Reports: Malaise HEENT: Reports: No Symptoms Pulmonary: Reports: Shortness of Breath Cardiovascular: Reports: Chest Pain Gastrointestinal: Reports: No Symptoms Genitourinary: Reports: No Symptoms Musculoskeletal: Reports: No Symptoms Skin: Reports: No Symptoms Psychiatric: Reports: Anxiety Neurological: Reports: No Symptoms Exam - Exam Exam: See Below - Vital Signs Vital Signs: Last Vital Signs Temp 36.8 C 01/06/18 11:02 Pulse 74 01/06/18 11:02 Resp 20 01/06/18 11:02 BP 108/58 L 01/06/18 11:02 Pulse Ox 98 01/06/18 11:02 Weight: 86.273 kg - Exam General: Alert, Cooperative HEENT: PERRLA, Hearing Intact, Mucosa Moist & [place], Nares Patent, Normal Nasal Septum, Posterior Pharynx Clear, Conjunctiva Clear, EOMI, EACs Clear, TMs Clear Neck: Supple, Trachea Midline, 2 Lungs: Clear to Auscultation, Normal Respiratory Effort Cardiovascular: Regular Rate, Regular Rhythm GI/Abdominal Exam: Normal Bowel Sounds, Soft, Non-Tender, No Organomegaly, No Distention, No Abnormal Bruit, No Mass, Pelvis Stable Extremities: Normal Inspection, Normal Range of Motion, Non-Tender, No Pedal Edema, Normal Capillary Refill Skin: Warm, Dry, Intact Psychiatric: Anxious - Patient Data Lab Results Last 24 hrs: Laboratory Results - last 24 hr 01/05/18 01/05/18 01/05/18 Range/Units 23:00 23:00 23:00 WBC 9.1 (5.0-10.0) 10^3/uL RBC 4.20 (4.2-5.4) 10^6/uL Hgb 12.7 (12.0-16.0) g/dL Hct 38.8 (37.0-47.0) % MCV 92.4 (80-100) fL MCH 30.2 (27.0-34.0) pg MCHC 32.7 L (33.0-35.0) g/dL Plt Count 271 (150-450) 10^3/uL Neut % (Auto) 41.7 L (42.2-75.2) % Lymph % (Auto) 50.7 H (20.5-50.1) % [place] % (Auto) 6.4 (2-8) % Eos % (Auto) 0.8 L (1.0-3.0) % Baso % (Auto) 0.4 (0.0-1.0) % PT 9.9 (9.0-12.0) SEC INR 1.0 (0.9-1.2) Sodium 138 (135-145) mmol/L Potassium 3.5 L (3.6-5.0) mmol/L Chloride 102 (101-111) mmol/L Carbon Dioxide 27.0 (21.0-31.0) mmol/L Anion Gap 12.5 BUN 9 (7-18) mg/dL Creatinine 0.8 (0.6-1.3) mg/dL Est Cr Clr Drug Dosing 108.44 mL/min Estimated GFR (MDRD) > 60 BUN/Creatinine Ratio 11.25 Glucose 103 (74-105) mg/dL Calcium 9.7 (8.4-10.2) mg/dl Magnesium (1.8-2.5) mg/dL Total Bilirubin 0.6 (0.2-1.0) mg/dL AST 22 (10-42) IU/L ALT 18 (10-60) IU/L Alkaline Phosphatase 73 (42-121) IU/L Troponin I < 0.02 (0.00-0.02) ng/ml Total Protein 7.7 (6.7-8.2) g/dl Albumin 4.5 (3.2-5.5) g/dl Globulin 3.2 Albumin/Globulin Ratio 1.41 HCG, Qual Negative 01/06/18 01/06/18 01/06/18 Range/Units 03:18 03:18 09:20 WBC (5.0-10.0) 10^3/uL RBC (4.2-5.4) 10^6/uL Hgb (12.0-16.0) g/dL Hct (37.0-47.0) % MCV (80-100) fL MCH (27.0-34.0) pg MCHC (33.0-35.0) g/dL Plt Count (150-450) 10^3/uL Neut % (Auto) (42.2-75.2) % Lymph % (Auto) (20.5-50.1) % [place] % (Auto) (2-8) % Eos % (Auto) (1.0-3.0) % Baso % (Auto) (0.0-1.0) % PT (9.0-12.0) SEC INR (0.9-1.2) Sodium (135-145) mmol/L Potassium (3.6-5.0) mmol/L Chloride (101-111) mmol/L Carbon Dioxide (21.0-31.0) mmol/L Anion Gap BUN (7-18) mg/dL Creatinine (0.6-1.3) mg/dL Est Cr Clr Drug Dosing mL/min Estimated GFR (MDRD) BUN/Creatinine Ratio Glucose (74-105) mg/dL Calcium (8.4-10.2) mg/dl Magnesium 1.9 (1.8-2.5) mg/dL Total Bilirubin (0.2-1.0) mg/dL AST (10-42) IU/L ALT (10-60) IU/L Alkaline Phosphatase (42-121) IU/L Troponin I < 0.02 < 0.02 (0.00-0.02) ng/ml Total Protein (6.7-8.2) g/dl Albumin (3.2-5.5) g/dl Globulin Albumin/Globulin Ratio HCG, Qual Result Diagrams: 01/05/18 23:00 01/05/18 23:00 *Q Meaningful Use (ADM) - VTE Risk Assess *Q Other Thrombophilia Type: smoking hx, et bigeminy c ablation hx Problem List Initiated/Reviewed/Updated: Yes Orders Last 24hrs: Active Orders 24 hr Category Date Time Status Patient Status [ADT] Routine ADT 01/06/18 00:15 Active Bedrest Bathroom Privileges [RC] ASDIRECTED Care 01/06/18 00:15 Active Cardiac Monitoring [RC] 08,20 Care 01/06/18 00:17 Active Oxygen Therapy [RC] PRN Care 01/06/18 00:15 Active VTE/DVT Education [RC] PER UNIT ROUTINE Care 01/06/18 00:15 Active Vital Signs [RC] Q4H Care 01/06/18 00:15 Active Regular Diet [DIET] Diet 01/06/18 Breakfast Active Acetaminophen [Tylenol] Med 01/06/18 00:15 Active 650 mg PO Q4H PRN Heparin Sodium Med 01/06/18 06:00 Active 5,000 units SUBCUT Q8HR Sodium Chloride 0.9% [Normal Saline] 1,000 ml Med 01/06/18 00:15 Active IV ASDIRECTED Resuscitation Status Routine Resus Stat 01/06/18 00:15 Ordered Medication Orders Acetaminophen (Tylenol) 650 mg PO Q4H PRN PRN Reason: Pain (Mild 1-3)/fever Heparin Sodium (Porcine) (Heparin Sodium) 5,000 units SUBCUT Q8HR [facility] Last Admin: 01/06/18 05:21 Dose: 5,000 units Sodium Chloride (Normal Saline) 1,000 mls @ 75 mls/hr IV ASDIRECTED [facility] Last Admin: 01/06/18 01:16 Dose: 75 mls/hr Assessment/Plan Comment:: Assessment/plan: #. Chest pain Patient started having chest pain yesterday evening. This is unlikely due to acute coronary syndrome. However she is known to have systolic dysfunction. Recently underwent ablation of PVCs. #. PVCs Patient was having multiple PVCs. She underwent ablation of PVCs in November 2017 This has now recalled. #. Gastroesophageal reflux disease Currently not on any medication #. Tobacco use disorder Counseling provided Plan: Admit patient to cardiac monitored bed Obtain cardiac enzymes every 6 hours check magnesium level Check potassium level Intravenous fluid with normal saline going at 75 mL an hour Discussed with the emergency room physician assistant farm operations manager
--- NOTE | 2018-01-06 12:06 | PCM.DCSUM1 ---
Discharge Summary - Hospital Course Free Text/Narrative:: The patient was admitted with complaint of chest pain and palpitations. She recently had electrophysiologic study with ablation of bigeminy at [facility]. Presented with similar symptoms and was found to be having multiple PVCs. She got admitted to the hospital and was ruled out for acute coronary syndrome. Cardiac enzymes were negative. The patient however continues to have active chest pain. She'll be transferred to [facility] Final diagnoses: Chest pain Multiple PVCs Status post recent ablation of bigeminy Systolic dysfunction Diagnosis: Stroke: No - Discharge Data Discharge Date: 01/06/18 Discharge Disposition: DC/Tfer to Acute Hospital 02 Condition: Good - Discharge Plan Home Medications: Home Meds Acetaminophen 1,000 mg PO DAILY PRN 11/23/17 [History] Albuterol [Proventil HFA] 2 puff INH Q4H PRN 01/06/18 [History] Multivitamin [Flintstones] 1 each PO DAILY 01/06/18 [History] Sodium Chloride 0.9% [Normal Saline] 25 ml IV ASDIRECTED bag 01/06/18 [Rx] Forms: ED Department Discharge Referrals: Mercedes Iyer MD [Primary Care Provider] - - General Info Date of Service: 01/06/18 - Patient Data Vitals - Most Recent: Last Vital Signs Temp 36.8 C 01/06/18 11:02 Pulse 74 01/06/18 11:02 Resp 20 01/06/18 11:02 BP 108/58 L 01/06/18 11:02 Pulse Ox 98 01/06/18 11:02 Weight - Most Recent: 86.273 kg I&O - Last 24 hours: Intake & Output 01/05/18 01/06/18 01/06/18 22:59 06:59 14:59 Intake Total 556 Output Total 600 Balance -44 Lab Results - Last 24 hrs: Laboratory Results - last 24 hr 01/05/18 01/05/18 01/05/18 Range/Units 23:00 23:00 23:00 WBC 9.1 (5.0-10.0) 10^3/uL RBC 4.20 (4.2-5.4) 10^6/uL Hgb 12.7 (12.0-16.0) g/dL Hct 38.8 (37.0-47.0) % MCV 92.4 (80-100) fL MCH 30.2 (27.0-34.0) pg MCHC 32.7 L (33.0-35.0) g/dL Plt Count 271 (150-450) 10^3/uL Neut % (Auto) 41.7 L (42.2-75.2) % Lymph % (Auto) 50.7 H (20.5-50.1) % [place] % (Auto) 6.4 (2-8) % Eos % (Auto) 0.8 L (1.0-3.0) % Baso % (Auto) 0.4 (0.0-1.0) % PT 9.9 (9.0-12.0) SEC INR 1.0 (0.9-1.2) Sodium 138 (135-145) mmol/L Potassium 3.5 L (3.6-5.0) mmol/L Chloride 102 (101-111) mmol/L Carbon Dioxide 27.0 (21.0-31.0) mmol/L Anion Gap 12.5 BUN 9 (7-18) mg/dL Creatinine 0.8 (0.6-1.3) mg/dL Est Cr Clr Drug Dosing 108.44 mL/min Estimated GFR (MDRD) > 60 BUN/Creatinine Ratio 11.25 Glucose 103 (74-105) mg/dL Calcium 9.7 (8.4-10.2) mg/dl Magnesium (1.8-2.5) mg/dL Total Bilirubin 0.6 (0.2-1.0) mg/dL AST 22 (10-42) IU/L ALT 18 (10-60) IU/L Alkaline Phosphatase 73 (42-121) IU/L Troponin I < 0.02 (0.00-0.02) ng/ml Total Protein 7.7 (6.7-8.2) g/dl Albumin 4.5 (3.2-5.5) g/dl Globulin 3.2 Albumin/Globulin Ratio 1.41 HCG, Qual Negative 01/06/18 01/06/18 01/06/18 Range/Units 03:18 03:18 09:20 WBC (5.0-10.0) 10^3/uL RBC (4.2-5.4) 10^6/uL Hgb (12.0-16.0) g/dL Hct (37.0-47.0) % MCV (80-100) fL MCH (27.0-34.0) pg MCHC (33.0-35.0) g/dL Plt Count (150-450) 10^3/uL Neut % (Auto) (42.2-75.2) % Lymph % (Auto) (20.5-50.1) % [place] % (Auto) (2-8) % Eos % (Auto) (1.0-3.0) % Baso % (Auto) (0.0-1.0) % PT (9.0-12.0) SEC INR (0.9-1.2) Sodium (135-145) mmol/L Potassium (3.6-5.0) mmol/L Chloride (101-111) mmol/L Carbon Dioxide (21.0-31.0) mmol/L Anion Gap BUN (7-18) mg/dL Creatinine (0.6-1.3) mg/dL Est Cr Clr Drug Dosing mL/min Estimated GFR (MDRD) BUN/Creatinine Ratio Glucose (74-105) mg/dL Calcium (8.4-10.2) mg/dl Magnesium 1.9 (1.8-2.5) mg/dL Total Bilirubin (0.2-1.0) mg/dL AST (10-42) IU/L ALT (10-60) IU/L Alkaline Phosphatase (42-121) IU/L Troponin I < 0.02 < 0.02 (0.00-0.02) ng/ml Total Protein (6.7-8.2) g/dl Albumin (3.2-5.5) g/dl Globulin Albumin/Globulin Ratio HCG, Qual Med Orders - Current: Current Medications Acetaminophen (Tylenol) 650 mg PO Q4H PRN PRN Reason: Pain (Mild 1-3)/fever Heparin Sodium (Porcine) (Heparin Sodium) 5,000 units SUBCUT Q8HR [facility] Last Admin: 01/06/18 05:21 Dose: 5,000 units Sodium Chloride (Normal Saline) 1,000 mls @ 75 mls/hr IV ASDIRECTED [facility] Last Admin: 01/06/18 01:16 Dose: 75 mls/hr Discontinued Medications Sodium Chloride (Normal Saline) 1,000 mls @ 999 mls/hr IV .BOLUS ONE Stop: 01/05/18 23:57 Last Admin: 01/05/18 23:10 Dose: 999 mls/hr - Exam General: Reports: Alert, Oriented, Cooperative Neck: Reports: Supple Lungs: Reports: Clear to Auscultation, Normal Respiratory Effort Cardiovascular: Reports: Regular Rate, Regular Rhythm GI/Abdominal Exam: Normal Bowel Sounds, Soft, Non-Tender, No Organomegaly, No Distention, No Abnormal Bruit, No Mass, Pelvis Stable
--- NOTE | 2018-01-07 13:12 | EKG ---
01/05/2018 - STEVE KARIS ALICE - TIME: 2251 hours. FINDINGS: EKG shows bigeminy. [facility] /[id number]
== END 2018-01-06 13:45 ==
LOC: DL.ED 22:43 → UNDOADMOB 01-06 00:07 → DL.MS 01-06 00:07
PROVIDERS: ADMIT Hospitalist; ATTEND Hospitalist
DX: R07.2 Precordial pain (principal); R00.2 Palpitations; I49.3 Ventricular premature depolarization; I51.9 Heart disease, unspecified; F17.200 Nicotine dependence, unspecified, uncomplicated; K21.9 Gastro-esophageal reflux disease without esophagitis; E03.9 Hypothyroidism, unspecified; F41.9 Anxiety disorder, unspecified; F32.9 Major depressive disorder, single episode, unspecified; Z79.899 Other long term (current) drug therapy; Z88.0 Allergy status to penicillin; Z88.1 Allergy status to other antibiotic agents
CPT/HCPCS: 36415; 80053; 83735; 84484; 84703; 85025; 85610; 93005; 96360; 96361; 96372; 99285; G0378; J1644; J7030

== ENCOUNTER 2018-07-26 15:54 | Emergency (ER) | payer MEDICAID ==
[2018-07-26 16:05] VITALS: BP 134/84
--- NOTE | 2018-07-26 16:47 | EDM.PDOC ---
ED HPI GENERAL MEDICAL PROBLEM - General Chief Complaint: Respiratory Problem Stated Complaint: SENT FROM CLINIC Time Seen by Provider: 07/26/18 16:30 Source of Information: Reports: Patient History Limitations: Reports: No Limitations - History of Present Illness INITIAL COMMENTS - FREE TEXT/NARRATIVE: Patient comes emergency department and she was referred from the clinic with concerns of pulmonary embolism. The patient since February has been struggling with shortness of breath and difficulty breathing. She has had multiple evaluations and medication therapy without improvement. She had a CT scan of her chest concerning for pulmonary embolism which was positive for proximal pulmonary embolism. She does not smoke she quit in February. She is not on any hormone therapy at this time. She has a copper IUD in place. She has not had any long-term sedentary lifestyle sitting in a plane or car. She has no history of hypercoagulable state or family clotting disorders. She does not have any pain in her chest. She is short of breath when she lays down. She is short of breath with physical exertion. She's had no fever no chills. She does have a history of cardiomyopathy Left Chest Pain Score (Numeric/FACES): 5 - Related Data Allergies Allergy/AdvReac Type Severity Reaction Status Date / Time clindamycin AdvReac Nausea and Verified 07/26/18 16:11 Vomiting Penicillins AdvReac Abdominal Verified 07/26/18 16:11 Cramps Home Meds: Home Meds Omeprazole 20 mg PO DAILY 07/26/18 [History] Rivaroxaban [Xarelto] 15 mg PO BID #42 tablet 07/26/18 [Rx] Past Medical History - Past Health History Medical/Surgical History: Denies Medical/Surgical History HEENT History: Reports: Impaired Vision Other HEENT History: WEARS CORRECTIVE LENS Cardiovascular History: Reports: Other (See Below) Other Cardiovascular History: PVC's. Ablation done on december 01, 2017. 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 Other NARROW GAUGE OPERATOR History: T.A.- May 09, 2015 Musculoskeletal History: Reports: Fracture, Other (See Below) Other Musculoskeletal History: ACL repaired Neurological History: Reports: Migraines Psychiatric History: Reports: Anxiety, Depression Other Psychiatric History: post depression Endocrine/Metabolic History: Reports: Hypothyroidism Other Endocrine/Metabolic History: postpardium, not now Hematologic History: Reports: None Immunologic History: Reports: None Oncologic (Cancer) History: Reports: None Dermatologic History: Reports: None, Other (See Below) Other Dermatologic History: HX OF HSV INFECTION - Infectious Disease History Infectious Disease History: Reports: C-Difficile, Chicken Pox, Herpes - Past Surgical History Head Surgeries/Procedures: Reports: None HEENT Surgical History: Reports: Adenoidectomy, Tonsillectomy Other HEENT Surgeries/Procedures: Wears glasses for vision correction Cardiovascular Surgical History: Reports: Other (See Below) Other Cardiovascular Surgeries/Procedures: ablasion GI Surgical History: Reports: Colonoscopy Female Surgical History: Reports: Dilitation & Evacuation, Other (See Below) Other Female Surgeries/Procedures: cervical bx Musculoskeletal Surgical History: Reports: Arthroscopic Knee, Other (See Below) Other Musculoskeletal Surgeries/Procedures:: ACL repair Social & Family History - Family History Family Medical History: Noncontributory Other Cardiac Family History: maternal grandmother et mother have left BBB Oncologic: Reports: Lung Other Oncologic Family History: grandma-lung - Tobacco Use Smoking Status *Q: Former Smoker Used Tobacco, but Quit: Yes Month/Year Tobacco Last Used: Feb 2018 - Caffeine Use Caffeine Use: Reports: Coffee Other Caffeine Use: 24oz daily - Recreational Drug Use Recreational Drug Use: No - Living Situation & Occupation Living situation: Reports: with Family ED ROS GENERAL - Review of Systems Review Of Systems: ROS reveals no pertinent complaints other than HPI. ED EXAM, GENERAL - Physical Exam Exam: See Below Exam Limited By: No Limitations General Appearance: Alert, WD/WN, No Apparent Distress, Anxious Head: Atraumatic, Normocephalic Neck: Normal Inspection, Supple, Non-Tender, Full Range of Motion Respiratory/Chest: No Respiratory Distress, Lungs Clear, Normal Breath Sounds, No Accessory Muscle Use, Chest Non-Tender Cardiovascular: Normal Peripheral Pulses, Regular Rate, Rhythm, No Edema, No JVD , No Murmur, No Rub Peripheral Pulses: 2+: Radial (L), Radial (R), Posterior Tibial (L), Posterior Tibial (R), Dorsalis Pedis (L), Dorsalis Pedis (R) GI/Abdominal: Normal Bowel Sounds, Soft, Non-Tender, No Organomegaly, No Abnormal Bruit Back Exam: Normal Inspection, Full Range of Motion Extremities: Normal Inspection, Non-Tender, No Pedal Edema, Normal Capillary Refill Neurological: Alert, Oriented, Normal Cognition, No Motor/Sensory Deficits Psychiatric: Anxious Skin Exam: Warm, Dry, Intact, Normal Color, No Rash Lymphatic: No Adenopathy EKG INTERPRETATION EKG Date: 07/26/18 Time: 17:04 Rhythm: NSR Rate (Beats/Min): 73 [place]: Normal P-Wave: Present QRS: Normal ST-T: Normal QT: Normal Comparison: No Change Course - Vital Signs Last Recorded V/S: Last Vital Signs Temp 36.3 C 07/26/18 16:01 Pulse 79 07/26/18 16:01 Resp 20 07/26/18 16:01 BP 134/84 07/26/18 16:01 Pulse Ox 100 07/26/18 16:01 - Orders/Labs/Meds Orders: Active Orders 24 hr Category Date Time Status EKG 12 Lead [EKG Documentation Completion] [RC] URGENT Care 07/26/18 16:23 Active Labs: Laboratory Tests 07/26/18 07/26/18 07/26/18 Range/Units 16:28 16:28 16:28 WBC 9.1 (5.0-10.0) 10^3/uL RBC 4.27 (4.2-5.4) 10^6/uL Hgb 12.7 (12.0-16.0) g/dL Hct 39.7 (37.0-47.0) % MCV 93.0 (80-100) fL MCH 29.7 (27.0-34.0) pg MCHC 32.0 L (33.0-35.0) g/dL Plt Count 291 (150-450) 10^3/uL Neut % (Auto) 51.4 (42.2-75.2) % Lymph % (Auto) 41.5 (20.5-50.1) % [place] % (Auto) 5.5 (2-8) % Eos % (Auto) 1.0 (1.0-3.0) % Baso % (Auto) 0.6 (0.0-1.0) % PT 9.0 (9.0-12.0) SEC INR 0.9 (0.9-1.2) Sodium 136 (135-145) mmol/L Potassium 3.6 (3.6-5.0) mmol/L Chloride 100 L (101-111) mmol/L Carbon Dioxide 26.0 (21.0-31.0) mmol/L Anion Gap 13.6 BUN 11 (7-18) mg/dL Creatinine 0.8 (0.6-1.3) mg/dL Est Cr Clr Drug Dosing 108.16 mL/min Estimated GFR (MDRD) > 60 Glucose 103 (74-105) mg/dL Calcium 8.9 (8.4-10.2) mg/dl Troponin I < 0.02 (0.00-0.02) ng/ml Meds: Medications Discontinued Medications Generic Name Dose Route Start Last Admin Trade Name Freq PRN Reason Stop Dose Admin Rivaroxaban 15 mg 07/26/18 18:22 07/26/18 18:29 Xarelto PO 07/26/18 18:23 15 mg ONETIME ONE Administration - Radiology Interpretation Free Text/Narrative:: I did review the CT scan that was completed today. It is concerning for proximalpulmonary embolism one on each side. - Re-Assessments/Exams Free Text/Narrative Re-Assessment/Exam: 07/26/18 20:13 laboratory evaluation is rather unremarkable. He is hemodynamically stable not tachycardic or hypoxic. We did ambulate her down to the nurses station and back on oximetry and she did not drop her oxygen saturation below 96%. She was objectively minimally short of breath but does not appear to have increased work of breathing or dyspnea. due to her comorbid status I spoke with the hospitalist here and he agrees with me that starting her on ZXarelto with close follow-up by calling her tapper bit tomorrowbe appropriate at this time as she is quite stable and were unsure if this is a cute subacute or chronic clot.The patient was rather uncomfortable with this plan. I did attempt to get a hold of her physician's virtual customer assistant from pulmonology and the tapper bit in [place]. Neither of them were able to be reached. I did speak with Dr. Dolan who is the hospitalist [facility]. He does agree that we should be able to starer on Xarelto and discharge home with follow up but the patient is very nervous and uncomfortable with this plan he will accept her as an observational patient under his care [place]. Patient was comfortable with this plan she was given Xarelto while in the emergency department she was discharged and transferred to [facility]. Departure - Departure Time of Disposition: 17:31 Disposition: DC/Tfer to [facility] 02 Clinical Impression: Pulmonary embolism Qualifiers: Pulmonary embolism type: unspecified Chronicity: unspecified Acute cor pulmonale presence: without acute cor pulmonale Qualified Code(s): I26.99 - Other pulmonary embolism without acute cor pulmonale - Discharge Information Prescriptions: Rivaroxaban [Xarelto] 15 mg PO BID #42 tablet Instructions: Pulmonary Embolism Referrals: Mercedes Iyer MD [Primary Care Provider] - Forms: ED Department Discharge Additional Instructions: Discharged from [facility]. TO [facility] to be placed in observation spoke with Dr. Dolan. - My Orders Last 24 Hours: My Active Orders 07/26/18 16:23 EKG 12 Lead [EKG Documentation Completion] [RC] URGENT - Assessment/Plan Last 24 Hours: My Active Orders 07/26/18 16:23 EKG 12 Lead [EKG Documentation Completion] [RC] URGENT Assessment:: Pulmonary Embolism. Plan: Discharge and private vehicle to [facility] for observation with Dr. Dolan.
[2018-07-26 16:56] LABS: ANION GAP 13.6; CHLORIDE,CL 100 mmol/L (101-111); SODIUM,NA 136 mmol/L (135-145)
[2018-07-26] MEDS ORDERED: Rivaroxaban 10 MG Tab PO ONE (18:22)
== END 2018-07-26 18:35 ==
LOC: DL.ED 15:54
DX: I26.99 Other pulmonary embolism without acute cor pulmonale (principal); Z88.1 Allergy status to other antibiotic agents; Z88.0 Allergy status to penicillin; Z87.891 Personal history of nicotine dependence
CPT/HCPCS: 36415; 80048; 84484; 85025; 85610; 93005; 99285; A9270

== ENCOUNTER 2018-07-28 14:24 | Emergency (ER) | payer MEDICAID ==
[2018-07-28 14:44] VITALS: BP 123/70
[2018-07-28] MEDS ORDERED: LORazepam 0.5 MG Tab PO ONE (15:30)
--- NOTE | 2018-07-28 15:36 | EDM.PDOC ---
ED HPI GENERAL MEDICAL PROBLEM - General Chief Complaint: Back Pain or Injury Stated Complaint: PULMONARY EMBOLISM Time Seen by Provider: 07/28/18 15:25 Source of Information: Reports: Patient History Limitations: Reports: No Limitations - History of Present Illness INITIAL COMMENTS - FREE TEXT/NARRATIVE: Patient comes emergency department today with concerns of a burning sensation in her back. I saw this patient personally a few days ago and diagnosed her with a pulmonary embolism. 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 She has been struggling with shortness of breath for many months. She is a questionable history of cardiomyopathy. The patient's request to go to [place] and had an evaluation to include an echocardiogram following the diagnosis of her pulmonary embolism. Patient had an echocardiogram that she relates was "normal" . She took her Xarelto this morning. Couple of hours ago she suddenly felt a burning sensation below her left shoulder blade. She feels "not right". She is no more short of breath than before. She has no pain in the anterior chest. No cough or congestion or difficulty breathing. She has a history of anxiety and wonders anxiety may be a component of this. Left Back Pain Score (Numeric/FACES): 7 - Related Data Allergies Allergy/AdvReac Type Severity Reaction Status Date / Time clindamycin AdvReac Nausea and Verified 07/28/18 14:40 Vomiting Penicillins AdvReac Abdominal Verified 07/28/18 14:40 Cramps Home Meds: Home Meds Omeprazole 20 mg PO DAILY 07/26/18 [History] Rivaroxaban [Xarelto] 15 mg PO BID #42 tablet 07/26/18 [Rx] Past Medical History - Past Health History Medical/Surgical History: Denies Medical/Surgical History HEENT History: Reports: Impaired Vision Other HEENT History: WEARS CORRECTIVE LENS Cardiovascular History: Reports: Other (See Below) Other Cardiovascular History: PVC's. Ablation done on december 01, 2017. cardio myopathy Respiratory History: Reports: PE Other Respiratory History: HX OF TOBACCO HABITUATION Gastrointestinal History: Reports: GERD, Other (See Below) Other Gastrointestinal History: HX OF CDIFF INFECTION Genitourinary History: Reports: None Other Genitourinary History: hasn't in a few years NETWORK SUPPORT MANAGER History: Reports: , Therapeutic Other NETWORK SUPPORT MANAGER History: TMaral- May 09, 2015 Musculoskeletal History: Reports: Fracture, Other (See Below) Other Musculoskeletal History: ACL repaired Neurological History: Reports: Migraines Psychiatric History: Reports: Anxiety, Depression Other Psychiatric History: post depression Endocrine/Metabolic History: Reports: Hypothyroidism Other Endocrine/Metabolic History: postpardium, not now Hematologic History: Reports: None Immunologic History: Reports: None Oncologic (Cancer) History: Reports: None Dermatologic History: Reports: None, Other (See Below) Other Dermatologic History: HX OF HSV INFECTION - Infectious Disease History Infectious Disease History: Reports: C-Difficile, Chicken Pox, Herpes - Past Surgical History Head Surgeries/Procedures: Reports: None HEENT Surgical History: Reports: Adenoidectomy, Tonsillectomy Other HEENT Surgeries/Procedures: Wears glasses for vision correction Cardiovascular Surgical History: Reports: Other (See Below) Other Cardiovascular Surgeries/Procedures: ablasion GI Surgical History: Reports: Colonoscopy Female Surgical History: Reports: Dilitation & Evacuation, Other (See Below) Other Female Surgeries/Procedures: cervical bx Musculoskeletal Surgical History: Reports: Arthroscopic Knee, Other (See Below) Other Musculoskeletal Surgeries/Procedures:: ACL repair Social & Family History - Family History Family Medical History: Noncontributory Other Cardiac Family History: maternal grandmother et mother have left BBB Oncologic: Reports: Lung Other Oncologic Family History: grandma-lung - Tobacco Use Smoking Status *Q: Never Smoker - Caffeine Use Caffeine Use: Reports: None Other Caffeine Use: 24oz daily - Recreational Drug Use Recreational Drug Use: No - Living Situation & Occupation Living situation: Reports: with Family ED ROS GENERAL - Review of Systems Review Of Systems: ROS reveals no pertinent complaints other than HPI. ED EXAM, UPPER BACK/NECK PAIN - Physical Exam Exam: See Below Exam Limited By: No Limitations General Appearance: Alert, WD/WN, Anxious Eye Exam: Bilateral Eye: Normal Inspection Head Exam: Atraumatic, Normocephalic Neck Exam: Non-Tender, Full Range of Motion, Normal Alignment Cardiovascular/Respiratory: Regular Rate, Rhythm, No M/R/G, Normal Peripheral Pulses, No JVD, Normal Breath Sounds, No Respiratory Distress GI/Abdominal: Normal Bowel Sounds, Soft, Non-Tender Back Exam: Normal Inspection, Full Range of Motion, Other (No bruising swelling ecchymosis tenderness bony deformity subcutaneous emphysema or swelling to the posterior.). No: CVA Tenderness (L), CVA Tenderness (R), Decreased Range of Motion Extremities: Normal Inspection, Normal Range of Motion, Non-Tender, Normal Capillary Refill Psychiatric: Normal Affect Skin Exam: Normal Color, Warm/Dry Course - Vital Signs Last Recorded V/S: Last Vital Signs Temp 36.4 C 07/28/18 14:41 Pulse 87 07/28/18 14:41 Resp 16 07/28/18 14:41 BP 123/70 07/28/18 14:41 Pulse Ox 100 07/28/18 14:41 - Orders/Labs/Meds Labs: Laboratory Tests 07/28/18 07/28/18 07/28/18 Range/Units 15:41 15:41 15:41 WBC 8.7 (5.0-10.0) 10^3/uL RBC 4.40 (4.2-5.4) 10^6/uL Hgb 13.2 (12.0-16.0) g/dL Hct 40.4 (37.0-47.0) % MCV 91.8 (80-100) fL MCH 30.0 (27.0-34.0) pg MCHC 32.7 L (33.0-35.0) g/dL Plt Count 303 (150-450) 10^3/uL Neut % (Auto) 58.7 (42.2-75.2) % Lymph % (Auto) 35.3 (20.5-50.1) % [place] % (Auto) 5.1 (2-8) % Eos % (Auto) 0.7 L (1.0-3.0) % Baso % (Auto) 0.2 (0.0-1.0) % PT 10.1 (9.0-12.0) SEC INR 1.0 (0.9-1.2) Sodium 136 (135-145) mmol/L Potassium 3.7 (3.6-5.0) mmol/L Chloride 99 L (101-111) mmol/L Carbon Dioxide 25.0 (21.0-31.0) mmol/L Anion Gap 15.7 BUN 11 (7-18) mg/dL Creatinine 0.8 (0.6-1.3) mg/dL Est Cr Clr Drug Dosing 108.16 mL/min Estimated GFR (MDRD) > 60 Glucose 103 (74-105) mg/dL Calcium 9.5 (8.4-10.2) mg/dl Meds: Medications Discontinued Medications Generic Name Dose Route Start Last Admin Trade Name [place] PRN Reason Stop Dose Admin Lorazepam 0.5 mg 07/28/18 15:30 07/28/18 15:41 Ativan PO 07/28/18 15:31 0.5 mg ONETIME ONE Administration - Re-Assessments/Exams Free Text/Narrative Re-Assessment/Exam: 07/28/18 15:39 Ativan 0.5 mg by mouth. 07/28/18 20:30 all of the patient's complaints resolved following the Ativan. She feels much better.Her laboratory evaluation as well as chest x-ray is unremarkable.This is not an uncommon pain that she has had over the past couple months. I talked to the patient about concerns for anxiety and she agrees that she is struggling with anxiety with a new diagnosis and that is understandable with the concerns of a pulmonary embolism. He needs to continue her Zoloft total cure some Ativan for the next couple of days to help with anxiety. Recheck if any concerns she is comfortable with this plan and her questions are answered Departure - Departure Time of Disposition: 16:27 Disposition: Home, Self-Care 01 Clinical Impression: Pulmonary embolism Qualifiers: Pulmonary embolism type: unspecified Chronicity: unspecified Acute cor pulmonale presence: without acute cor pulmonale Qualified Code(s): I26.99 - Other pulmonary embolism without acute cor pulmonale - Discharge Information Instructions: Pulmonary Embolism, Pain Medicine Instructions, [id number] Forms: ED Department Discharge Additional Instructions: Continue the Xarelto. Ativan, 1 tab three times a day as needed for anxiety Caution sedation RX given to the patient. Continue your plan for evaluation of the PE. Return to the ED if new or worsening symptoms. - Assessment/Plan Assessment:: anxiety Recent diagnosis of pulmonary embolism Plan: Continue the Xarelto. Ativan, 1 tab three times a day as needed for anxiety Caution sedation RX given to the patient. Continue your plan for evaluation of the PE. Return to the ED if new or worsening symptoms.
--- NOTE | 2018-07-28 15:54 | CR ---
Clinical history: 33-year-old female with increased shortness of breath (patient treated with Aleks toe recently diagnosed pulmonary artery thrombosis) Interpretation: No new evidence focal lobar consolidation when compared 19 June 2018 upright AP portable chest film. Normal cardiac silhouette without cephalization of vascular flow, signs of alveolar edema or dependent effusion. Normal mediastinal width. No atelectasis/collapse. No lobar pneumonia. No pneumothorax. CONCLUSION: No acute new cardiopulmonary abnormality (PA/lateral chest films)
[2018-07-28 16:08] LABS: ANION GAP 15.7; CHLORIDE,CL 99 mmol/L (101-111); SODIUM,NA 136 mmol/L (135-145)
== END 2018-07-28 16:45 | disposition home or self-care (01) ==
LOC: DL.ED 14:24
DX: I26.99 Other pulmonary embolism without acute cor pulmonale (principal); F41.9 Anxiety disorder, unspecified; Z88.1 Allergy status to other antibiotic agents; Z88.0 Allergy status to penicillin
CPT/HCPCS: 36415; 71046; 80048; 85025; 85610; 99283; A9270

== ENCOUNTER 2018-08-06 06:07 | Emergency (ER) | payer MEDICAID ==
[2018-08-06 06:15] VITALS: BP 122/73
--- NOTE | 2018-08-06 06:48 | EDM.PDOC ---
<Timmy Sarmiento - Last Filed: 08/06/18 06:53> ED HPI GENERAL MEDICAL PROBLEM - General Chief Complaint: Chest Pain Stated Complaint: CHEST PAIN [id number] Time Seen by Provider: 08/06/18 06:42 Source of Information: Reports: Patient History Limitations: Reports: No Limitations - History of Present Illness INITIAL COMMENTS - FREE TEXT/NARRATIVE: states SOB all night without chest pain, felt like she couldn't catch her breath , had similar Sx last week was seen here and Tx with ativan and got better. states this time it is different. states SOB started in February and finally chest CAT was done that showed P.E and has been on xaralto since then. states she doesn't believe it is anxiety and ther is something more happening. Bilateral Lower Chest Pain Score (Numeric/FACES): 5 - Related Data Allergies Allergy/AdvReac Type Severity Reaction Status Date / Time clindamycin AdvReac Nausea and Verified 08/06/18 06:15 Vomiting Penicillins AdvReac Abdominal Verified 08/06/18 06:15 Cramps Home Meds: Home Meds Omeprazole 20 mg PO DAILY 07/26/18 [History] Rivaroxaban [Xarelto] 15 mg PO BID #42 tablet 07/26/18 [Rx] Past Medical History - Past Health History Medical/Surgical History: Denies Medical/Surgical History HEENT History: Reports: Impaired Vision Other HEENT History: WEARS CORRECTIVE LENS Cardiovascular History: Reports: Other (See Below) Other Cardiovascular History: PVC's. Ablation done on december 01, 2017. 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 METER PROVER History: Reports: , Therapeutic Other GAS METER PROVER History: T.A.- May 09, 2015 Musculoskeletal History: Reports: Fracture, Other (See Below) Other Musculoskeletal History: ACL repaired Neurological History: Reports: Migraines Psychiatric History: Reports: Anxiety, Depression Other Psychiatric History: post depression Endocrine/Metabolic History: Reports: Hypothyroidism Other Endocrine/Metabolic History: postpardium, not now Hematologic History: Reports: None Immunologic History: Reports: None Oncologic (Cancer) History: Reports: None Dermatologic History: Reports: None, Other (See Below) Other Dermatologic History: HX OF HSV INFECTION - Infectious Disease History Infectious Disease History: Reports: C-Difficile, Chicken Pox, Herpes - Past Surgical History Head Surgeries/Procedures: Reports: None HEENT Surgical History: Reports: Adenoidectomy, Tonsillectomy Other HEENT Surgeries/Procedures: Wears glasses for vision correction Cardiovascular Surgical History: Reports: Other (See Below) Other Cardiovascular Surgeries/Procedures: ablasion GI Surgical History: Reports: Colonoscopy Female Surgical History: Reports: Dilitation & Evacuation, Other (See Below) Other Female Surgeries/Procedures: cervical bx Musculoskeletal Surgical History: Reports: Arthroscopic Knee, Other (See Below) Other Musculoskeletal Surgeries/Procedures:: ACL repair Social & Family History - Family History Family Medical History: Noncontributory Other Cardiac Family History: maternal grandmother et mother have left BBB Oncologic: Reports: Lung Other Oncologic Family History: grandma-lung - Tobacco Use Smoking Status *Q: Never Smoker Second Hand Smoke Exposure: No - Caffeine Use Caffeine Use: Reports: None Other Caffeine Use: 24oz daily - Recreational Drug Use Recreational Drug Use: No - Living Situation & Occupation Living situation: Reports: with Family ED ROS GENERAL - Review of Systems Review Of Systems: ROS reveals no pertinent complaints other than HPI. ED EXAM, GENERAL - Physical Exam Exam: See Below Exam Limited By: No Limitations General Appearance: Alert, WD/WN, Anxious, Mild Distress, Other (distraught) Ears: Hearing Grossly Normal Throat/Mouth: Normal Voice, No Airway Compromise Head: Atraumatic Neck: Non-Tender, Full Range of Motion Respiratory/Chest: No Respiratory Distress, No Accessory Muscle Use Cardiovascular: Regular Rate, Rhythm GI/Abdominal: Soft, Non-Tender Neurological: Alert, Oriented, Normal Cognition, Normal Gait, No Motor/Sensory Deficits Psychiatric: Flat Affect Skin Exam: Warm, Dry, Normal Color Lymphatic: No Adenopathy Course - Vital Signs Last Recorded V/S: Last Vital Signs Temp 98.5 F 08/06/18 06:10 Pulse 98 08/06/18 06:10 Resp 18 08/06/18 06:10 BP 122/73 08/06/18 06:10 Pulse Ox 100 08/06/18 06:10 - Orders/Labs/Meds Orders: Active Orders 24 hr Category Date Time Status EKG 12 Lead [EKG Documentation Completion] [RC] STAT Care 08/06/18 06:23 Active DRUG SCREEN URINE BIORAD [URCHEM] Stat Lab 08/06/18 06:48 Ordered UA RFX TOY AND CULT IF INDIC [URIN] Stat Lab 08/06/18 06:48 Ordered Labs: Laboratory Tests 08/06/18 08/06/18 08/06/18 Range/Units 06:31 06:31 06:31 WBC 7.7 (5.0-10.0) 10^3/uL RBC 4.08 L (4.2-5.4) 10^6/uL Hgb 12.4 (12.0-16.0) g/dL Hct 37.3 (37.0-47.0) % MCV 91.4 (80-100) fL MCH 30.4 (27.0-34.0) pg MCHC 33.2 (33.0-35.0) g/dL Plt Count 306 (150-450) 10^3/uL Neut % (Auto) 54.6 (42.2-75.2) % Lymph % (Auto) 36.3 (20.5-50.1) % [place] % (Auto) 6.8 (2-8) % Eos % (Auto) 1.8 (1.0-3.0) % Baso % (Auto) 0.5 (0.0-1.0) % D-Dimer, Quantitative < 100 (0-400) ng/mL Sodium 137 (135-145) mmol/L Potassium 3.8 (3.6-5.0) mmol/L Chloride 101 (101-111) mmol/L Carbon Dioxide 24.0 (21.0-31.0) mmol/L Anion Gap 15.8 BUN 11 (7-18) mg/dL Creatinine 0.7 (0.6-1.3) mg/dL Est Cr Clr Drug Dosing 123.61 mL/min Estimated GFR (MDRD) > 60 BUN/Creatinine Ratio 15.71 Glucose 100 (74-105) mg/dL Calcium 8.9 (8.4-10.2) mg/dl Total Bilirubin 0.5 (0.2-1.0) mg/dL AST 22 (10-42) IU/L ALT 21 (10-60) IU/L Alkaline Phosphatase 71 (42-121) IU/L Troponin I < 0.02 (0.00-0.02) ng/ml B-Natriuretic Peptide (0-100) pg/ml Total Protein 7.3 (6.7-8.2) g/dl Albumin 4.0 (3.2-5.5) g/dl Globulin 3.3 Albumin/Globulin Ratio 1.21 HCG, Qual 08/06/18 Range/Units 06:31 WBC (5.0-10.0) 10^3/uL RBC (4.2-5.4) 10^6/uL Hgb (12.0-16.0) g/dL Hct (37.0-47.0) % MCV (80-100) fL MCH (27.0-34.0) pg MCHC (33.0-35.0) g/dL Plt Count (150-450) 10^3/uL Neut % (Auto) (42.2-75.2) % Lymph % (Auto) (20.5-50.1) % [place] % (Auto) (2-8) % Eos % (Auto) (1.0-3.0) % Baso % (Auto) (0.0-1.0) % D-Dimer, Quantitative (0-400) ng/mL Sodium (135-145) mmol/L Potassium (3.6-5.0) mmol/L Chloride (101-111) mmol/L Carbon Dioxide (21.0-31.0) mmol/L Anion Gap BUN (7-18) mg/dL Creatinine (0.6-1.3) mg/dL Est Cr Clr Drug Dosing mL/min Estimated GFR (MDRD) BUN/Creatinine Ratio Glucose (74-105) mg/dL Calcium (8.4-10.2) mg/dl Total Bilirubin (0.2-1.0) mg/dL AST (10-42) IU/L ALT (10-60) IU/L Alkaline Phosphatase (42-121) IU/L Troponin I (0.00-0.02) ng/ml B-Natriuretic Peptide < 5 (0-100) pg/ml Total Protein (6.7-8.2) g/dl Albumin (3.2-5.5) g/dl Globulin Albumin/Globulin Ratio HCG, Qual Negative Departure - Departure Disposition: Home, Self-Care 01 Clinical Impression: SOB (shortness of breath) - Discharge Information Instructions: Shortness of Breath, Adult, [id number] Forms: ED Department Discharge Additional Instructions: Follow up with your primary care facility <Ann Reeves - Last Filed: 08/06/18 07:50> ED EXAM, GENERAL - Physical Exam Eye Exam: Bilateral Eye: EOMI, Normal Inspection Nose: Normal Inspection Respiratory/Chest: Lungs Clear, Normal Breath Sounds Peripheral Pulses: 2+: Radial (L), Radial (R) GI/Abdominal: Normal Bowel Sounds (Female) Exam: Deferred Rectal (Female) Exam: Deferred Back Exam: Normal Inspection, Full Range of Motion Extremities: Normal Inspection, Normal Range of Motion, Non-Tender, No Pedal Edema, Normal Capillary Refill Psychiatric: Anxious Course - Re-Assessments/Exams Free Text/Narrative Re-Assessment/Exam: 08/06/18 07:45 Patient care taken over from Dr. Sarmiento at 0700. Discussed lab findings with patient. It was explained to her that the D-Dimer had a negative finding, and the fact that she had a chest CT on 07/26/18, and was currently taking Xarelto, I did not feel a chest CT was our best option right now. A CXR was offered. Patient refused. When asked if she had ever had PFT's done, patient states she has had them done, which led to the last CTA. Patient lung sounds are clear and regular. Patient denies fever or chills recently. Patient was offered something to help her relax. Patient states she has Ativan at home, and she does not want to be offered Ativan here. She states "I am truly sick, there is truly something wrong". Patient requests to be discharged at this time to follow up with her primary care facility. Departure - Departure Time of Disposition: 07:30 Condition: Fair - Discharge Information *PRESCRIPTION DRUG MONITORING PROGRAM REVIEWED*: No *COPY OF PRESCRIPTION DRUG MONITORING REPORT IN PATIENT JEREMIAS: No
[2018-08-06 06:57] LABS: ANION GAP 15.8; CHLORIDE,CL 101 mmol/L (101-111); SODIUM,NA 137 mmol/L (135-145)
== END 2018-08-06 07:45 | disposition home or self-care (01) ==
LOC: DL.ED 06:07
DX: R06.02 Shortness of breath (principal); Z88.0 Allergy status to penicillin; Z88.1 Allergy status to other antibiotic agents; Z79.899 Other long term (current) drug therapy
CPT/HCPCS: 36415; 80053; 83880; 84484; 84703; 85025; 85379; 93005; 99285

== ENCOUNTER 2018-12-11 14:25 | Emergency (ER) | payer MEDICAID ==
[2018-12-11] MEDS ORDERED: Sodium Chloride 0.9% 10 ML Syringe FLUSH PRN (14:56)
--- NOTE | 2018-12-11 14:56 | EDM.PDOC ---
ED HPI GENERAL MEDICAL PROBLEM - General Chief Complaint: Chest Pain Stated Complaint: CHEST PAINS Time Seen by Provider: 12/11/18 14:55 Source of Information: Reports: Patient, RN, RN Notes Reviewed History Limitations: Reports: No Limitations - History of Present Illness INITIAL COMMENTS - FREE TEXT/NARRATIVE: Pt presents to ER with one weeks duration of squeezing and burning pain from the epigastrium to the sternal notch that comes and goes. Pt admits to heartburn on/off for years. She denies shortness of breath, syncope, or palpitations. Pt admits to pain that radiates straight through to the midback. She also admits to anxiety. Duration: Recurring Location: Reports: Chest, Abdomen Quality: Reports: Burning Severity: Moderate Improves with: Reports: None Worsens with: Reports: None Associated Symptoms: Reports: No Other Symptoms Left Chest Pain Score (Numeric/FACES): 2 - Related Data Allergies Allergy/AdvReac Type Severity Reaction Status Date / Time clindamycin AdvReac Nausea and Verified 12/11/18 14:38 Vomiting Penicillins AdvReac Abdominal Verified 12/11/18 14:38 Cramps Home Meds: Home Meds . [No Known Home Meds] 12/11/18 [History] Past Medical History - Past Health History Medical/Surgical History: Denies Medical/Surgical History HEENT History: Reports: Impaired Vision Other HEENT History: WEARS CORRECTIVE LENS Cardiovascular History: Reports: Other (See Below) Other Cardiovascular History: PVC's. Ablation done on december 01, 2017. 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 Other ELECTRIC POWERLINE EXAMINER History: T.A.- May 09, 2015 Musculoskeletal History: Reports: Fracture, Other (See Below) Other Musculoskeletal History: ACL repaired Neurological History: Reports: Migraines Psychiatric History: Reports: Anxiety, Depression Other Psychiatric History: post depression Endocrine/Metabolic History: Reports: Hypothyroidism Other Endocrine/Metabolic History: postpardium, not now Hematologic History: Reports: None Immunologic History: Reports: None Oncologic (Cancer) History: Reports: None Dermatologic History: Reports: None, Other (See Below) Other Dermatologic History: HX OF HSV INFECTION - Infectious Disease History Infectious Disease History: Reports: C-Difficile, Chicken Pox, Herpes - Past Surgical History Head Surgeries/Procedures: Reports: None HEENT Surgical History: Reports: Adenoidectomy, Tonsillectomy Other HEENT Surgeries/Procedures: Wears glasses for vision correction Cardiovascular Surgical History: Reports: Other (See Below) Other Cardiovascular Surgeries/Procedures: ablasion GI Surgical History: Reports: Colonoscopy Female Surgical History: Reports: Dilitation & Evacuation, Other (See Below) Other Female Surgeries/Procedures: cervical bx Musculoskeletal Surgical History: Reports: Arthroscopic Knee, Other (See Below) Other Musculoskeletal Surgeries/Procedures:: ACL repair Social & Family History - Family History Family Medical History: Noncontributory Other Cardiac Family History: maternal grandmother et mother have left BBB Oncologic: Reports: Lung Other Oncologic Family History: grandma-lung - Tobacco Use Smoking Status *Q: Never Smoker - Caffeine Use Caffeine Use: Reports: Coffee Other Caffeine Use: 24oz daily - Recreational Drug Use Recreational Drug Use: No - Living Situation & Occupation Living situation: Reports: with Family ED ROS GENERAL - Review of Systems Review Of Systems: ROS reveals no pertinent complaints other than HPI. ED EXAM, GENERAL - Physical Exam Exam: See Below Exam Limited By: No Limitations General Appearance: Alert, WD/WN, No Apparent Distress Eye Exam: Bilateral Eye: Normal Inspection Nose: Normal Inspection Throat/Mouth: Normal Inspection, Normal Lips, Normal Teeth, Normal Gums, Normal Oropharynx, Normal Voice, No Airway Compromise Head: Atraumatic, Normocephalic Neck: Normal Inspection, Supple, Non-Tender, Full Range of Motion Respiratory/Chest: No Respiratory Distress, Lungs Clear, Normal Breath Sounds, No Accessory Muscle Use, Chest Non-Tender Cardiovascular: Normal Peripheral Pulses, Regular Rate, Rhythm, No Edema, No Gallop, No JVD, No Murmur, No Rub GI/Abdominal: Normal Bowel Sounds, Soft, Non-Tender, No Organomegaly, No Distention, No Abnormal Bruit, No Mass Back Exam: Normal Inspection, Full Range of Motion, NT Extremities: Normal Inspection, Normal Range of Motion, Non-Tender, Normal Capillary Refill, No Pedal Edema Neurological: Alert, Oriented, CN II-XII Intact, Normal Cognition, Normal Gait, No Motor/Sensory Deficits Psychiatric: Anxious Skin Exam: Warm, Dry, Intact, Normal Color, No Rash EKG INTERPRETATION EKG Date: 12/11/18 Time: 14:56 Rhythm: NSR [place]: Normal P-Wave: Present QRS: Normal ST-T: Normal QT: Normal Comparison: No Change Course - Vital Signs Last Recorded V/S: Last Vital Signs Temp 36.8 C 12/11/18 16:09 Pulse 88 12/11/18 14:30 Resp 12 12/11/18 16:09 BP 109/67 12/11/18 16:09 Pulse Ox 97 12/11/18 16:09 - Orders/Labs/Meds Orders: Active Orders 24 hr Category Date Time Status EKG 12 Lead [EKG Documentation Completion] [RC] STAT Care 12/11/18 14:56 Active Peripheral IV Care [RC] . DIRECTED Care 12/11/18 14:56 Active CULTURE URINE [RM] Stat Lab 12/11/18 15:11 Received Sodium Chloride 0.9% [Saline Flush] Med 12/11/18 14:56 Active 10 ml FLUSH ASDIRECTED PRN Peripheral IV Insertion Adult [OM.PC] Stat Oth 12/11/18 14:56 Ordered Medication Orders Sodium Chloride (Saline Flush) 10 ml FLUSH ASDIRECTED PRN PRN Reason: Keep Vein Open Last Admin: 12/11/18 14:58 Dose: 10 ml Labs: Laboratory Tests 12/11/18 12/11/18 12/11/18 Range/Units 14:47 14:47 14:47 WBC 9.2 (5.0-10.0) 10^3/uL RBC 4.19 L (4.2-5.4) 10^6/uL Hgb 12.4 (12.0-16.0) g/dL Hct 37.8 (37.0-47.0) % MCV 90.2 (80-100) fL MCH 29.6 (27.0-34.0) pg MCHC 32.8 L (33.0-35.0) g/dL Plt Count 280 (150-450) 10^3/uL Neut % (Auto) 55.9 (42.2-75.2) % Lymph % (Auto) 36.5 (20.5-50.1) % [place] % (Auto) 6.8 (2-8) % Eos % (Auto) 0.4 L (1.0-3.0) % Baso % (Auto) 0.4 (0.0-1.0) % D-Dimer, Quantitative 205 (0-400) ng/mL Sodium 140 (135-145) mmol/L Potassium 3.7 (3.6-5.0) mmol/L Chloride 106 (101-111) mmol/L Carbon Dioxide 24.0 (21.0-31.0) mmol/L Anion Gap 13.7 BUN 12 (7-18) mg/dL Creatinine 0.8 (0.6-1.3) mg/dL Est Cr Clr Drug Dosing 108.16 mL/min Estimated GFR (MDRD) > 60 BUN/Creatinine Ratio 15.00 Glucose 92 (74-105) mg/dL Calcium 9.9 (8.4-10.2) mg/dl Total Bilirubin 0.6 (0.2-1.0) mg/dL AST 19 (10-42) IU/L ALT 19 (10-60) IU/L Alkaline Phosphatase 72 (42-121) IU/L Troponin I < 0.02 (0.00-0.02) ng/ml B-Natriuretic Peptide 18 (0-100) pg/ml Total Protein 7.5 (6.7-8.2) g/dl Albumin 4.2 (3.2-5.5) g/dl Globulin 3.3 Albumin/Globulin Ratio 1.27 Lipase 34 (22-51) U/L TSH, Ultra Sensitive (0.45-5.33) uIu/mL Urine Color (YELLOW) Urine Appearance (CLEAR) Urine pH (5.0-9.0) Ur Specific [place] (1.005-1.030) Urine Protein (NEGATIVE) Urine Glucose (UA) (NEGATIVE) Urine Ketones (NEGATIVE) Urine Occult Blood (NEGATIVE) Urine Nitrite (NEGATIVE) Urine Bilirubin (NEGATIVE) Urine Urobilinogen (0.2-1.0) mg/dL Ur Leukocyte Esterase (NEGATIVE) Urine RBC /HPF Urine WBC (0-5/HPF) /HPF Ur Epithelial Cells (NOT SEEN) /HPF Amorphous Sediment (NOT SEEN) /HPF Urine Bacteria (0-FEW/HPF) /HPF Urine Mucus (NOT SEEN) /LPF Urine HCG, Qual 12/11/18 12/11/18 12/11/18 Range/Units 14:47 15:11 15:11 WBC (5.0-10.0) 10^3/uL RBC (4.2-5.4) 10^6/uL Hgb (12.0-16.0) g/dL Hct (37.0-47.0) % MCV (80-100) fL MCH (27.0-34.0) pg MCHC (33.0-35.0) g/dL Plt Count (150-450) 10^3/uL Neut % (Auto) (42.2-75.2) % Lymph % (Auto) (20.5-50.1) % [place] % (Auto) (2-8) % Eos % (Auto) (1.0-3.0) % Baso % (Auto) (0.0-1.0) % D-Dimer, Quantitative (0-400) ng/mL Sodium (135-145) mmol/L Potassium (3.6-5.0) mmol/L Chloride (101-111) mmol/L Carbon Dioxide (21.0-31.0) mmol/L Anion Gap BUN (7-18) mg/dL Creatinine (0.6-1.3) mg/dL Est Cr Clr Drug Dosing mL/min Estimated GFR (MDRD) BUN/Creatinine Ratio Glucose (74-105) mg/dL Calcium (8.4-10.2) mg/dl Total Bilirubin (0.2-1.0) mg/dL AST (10-42) IU/L ALT (10-60) IU/L Alkaline Phosphatase (42-121) IU/L Troponin I (0.00-0.02) ng/ml B-Natriuretic Peptide (0-100) pg/ml Total Protein (6.7-8.2) g/dl Albumin (3.2-5.5) g/dl Globulin Albumin/Globulin Ratio Lipase (22-51) U/L TSH, Ultra Sensitive 2.46 (0.45-5.33) uIu/mL Urine Color Yellow (YELLOW) Urine Appearance Cloudy (CLEAR) Urine pH 5.5 (5.0-9.0) Ur Specific [place] 1.025 (1.005-1.030) Urine Protein Negative (NEGATIVE) Urine Glucose (UA) Negative (NEGATIVE) Urine Ketones Negative (NEGATIVE) Urine Occult Blood Large H (NEGATIVE) Urine Nitrite Negative (NEGATIVE) Urine Bilirubin Negative (NEGATIVE) Urine Urobilinogen 0.2 (0.2-1.0) mg/dL Ur Leukocyte Esterase Trace H (NEGATIVE) Urine RBC 75-100 H /HPF Urine WBC 20-30 H (0-5/HPF) /HPF Ur Epithelial Cells Moderate H (NOT SEEN) /HPF Amorphous Sediment Few (NOT SEEN) /HPF Urine Bacteria Few (0-FEW/HPF) /HPF Urine Mucus Moderate H (NOT SEEN) /LPF Urine HCG, Qual Negative Meds: Medications Generic Name Dose Route Start Last Admin Trade Name Freq PRN Reason Stop Dose Admin Sodium Chloride 10 ml 12/11/18 14:56 12/11/18 14:58 Saline Flush FLUSH 10 ml ASDIRECTED PRN Administration Keep Vein Open Discontinued Medications Generic Name Dose Route Start Last Admin Trade Name Freq PRN Reason Stop Dose Admin Lorazepam 1 mg 12/11/18 16:11 Ativan PO 12/11/18 16:12 ONETIME ONE Departure - Departure Time of Disposition: 16:13 Disposition: Home, Self-Care 01 Condition: Good Clinical Impression: Chest pain, non-cardiac, Esophageal spasm GERD (gastroesophageal reflux disease) Qualifiers: Esophagitis presence: with esophagitis Qualified Code(s): K21.0 - Gastro- esophageal reflux disease with esophagitis Instructions: Esophageal Spasm, Nonspecific Chest Pain, [id number] Forms: ED Department Discharge Additional Instructions: Take Omeprazole 20mg two tablets every day for 3 weeks. Follow up in clinic in 3 weeks for recheck. - My Orders Last 24 Hours: My Active Orders 12/11/18 14:56 EKG 12 Lead [EKG Documentation Completion] [RC] STAT Peripheral IV Care [RC] . DIRECTED Sodium Chloride 0.9% [Saline Flush] 10 ml FLUSH ASDIRECTED PRN Peripheral IV Insertion Adult [OM.PC] Stat 12/11/18 15:11 CULTURE URINE [RM] Stat - Assessment/Plan Last 24 Hours: My Active Orders 12/11/18 14:56 EKG 12 Lead [EKG Documentation Completion] [RC] STAT Peripheral IV Care [RC] . DIRECTED Sodium Chloride 0.9% [Saline Flush] 10 ml FLUSH ASDIRECTED PRN Peripheral IV Insertion Adult [OM.PC] Stat 12/11/18 15:11 CULTURE URINE [RM] Stat
[2018-12-11 15:34] LABS: ANION GAP 13.7; CHLORIDE,CL 106 mmol/L (101-111); SODIUM,NA 140 mmol/L (135-145)
[2018-12-11 16:10] VITALS: BP 109/67
[2018-12-11] MEDS ORDERED: LORazepam 1 MG Tab PO ONE (16:11)
== END 2018-12-11 16:22 | disposition home or self-care (01) ==
LOC: DL.ED 14:25
DX: K21.0 Gastro-esophageal reflux disease with esophagitis (principal); K22.4 Dyskinesia of esophagus; R07.89 Other chest pain; F41.9 Anxiety disorder, unspecified; F32.9 Major depressive disorder, single episode, unspecified; E03.9 Hypothyroidism, unspecified; Z88.1 Allergy status to other antibiotic agents; Z88.0 Allergy status to penicillin
CPT/HCPCS: 36415; 80053; 81001; 81025; 83690; 83880; 84443; 84484; 85025; 85379; 87086; 87088; 93005; 99285-25

== ENCOUNTER 2019-08-21 15:37 | Emergency (ER) | payer MEDICAID ==
[2019-08-21 15:58] VITALS: BP 149/82; PULSE 108
[2019-08-21 16:44] LABS: ANION GAP 14.4; CHLORIDE,CL 102 mmol/L (101-111); SODIUM,NA 136 mmol/L (135-145)
[2019-08-21] MEDS ORDERED: Aspirin 81 MG Tab.Chew PO ONE (16:54)
[2019-08-21] MEDS ORDERED: Sodium Chloride 0.9% 10 ML Syringe FLUSH PRN (16:59)
--- NOTE | 2019-08-21 17:19 | EDM.PDOC ---
Scribed by Evonne Gold 08/21/19 2179 for Yeison Askew MD ED HPI GENERAL MEDICAL PROBLEM - General Chief Complaint: Chest Pain Stated Complaint: CHEST PAIN AND RACING HEART Time Seen by Provider: 08/21/19 15:45 Source of Information: Reports: Patient, RN, RN Notes Reviewed History Limitations: Reports: No Limitations - History of Present Illness INITIAL COMMENTS - FREE TEXT/NARRATIVE: Patient presents to ER stating that she was awoken at 0500 hours this morning with chest pain and racing heart. The pain radiates up the left neck to the left jaw. Symptoms have returned several times throughout the day without any particular causation or trigger. She reports several episodes of mild dizziness throughout the day, but denies syncope. She admits the symptoms caused her to feel anxious, but does not believe anxiety has caused the pain. Patient states she has had several chest pain and palpitation work ups in the past including labs, EKG, ECHO and cardiology referral. Onset: Today Duration: Intermittent Location: Reports: Chest Quality: Reports: Ache Severity: Mild Improves with: Reports: None Worsens with: Reports: None Associated Symptoms: Reports: No Other Symptoms Chest Pain Score (Numeric/FACES): 6 - Related Data Allergies Allergy/AdvReac Type Severity Reaction Status Date / Time clindamycin AdvReac Nausea and Verified 08/21/19 15:42 Vomiting Penicillins AdvReac Abdominal Verified 08/21/19 15:42 Cramps Home Meds: Home Meds . [No Known Home Meds] 08/21/19 [History] Past Medical History - Past Health History Medical/Surgical History: Denies Medical/Surgical History HEENT History: Reports: Impaired Vision Other HEENT History: WEARS CORRECTIVE LENS Cardiovascular History: Reports: Other (See Below) Other Cardiovascular History: PVC's. Ablation done on december 01, 2017. 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 Other CO DIRECTOR History: T.A.- May 09, 2015 Musculoskeletal History: Reports: Fracture, Other (See Below) Other Musculoskeletal History: ACL repaired Neurological History: Reports: Migraines Psychiatric History: Reports: Anxiety, Depression Other Psychiatric History: post depression Endocrine/Metabolic History: Reports: Hypothyroidism Other Endocrine/Metabolic History: postpardium, not now Hematologic History: Reports: None Immunologic History: Reports: None Oncologic (Cancer) History: Reports: None Dermatologic History: Reports: None, Other (See Below) Other Dermatologic History: HX OF HSV INFECTION - Infectious Disease History Infectious Disease History: Reports: C-Difficile, Chicken Pox, Herpes - Past Surgical History Head Surgeries/Procedures: Reports: None HEENT Surgical History: Reports: Adenoidectomy, Tonsillectomy Other HEENT Surgeries/Procedures: Wears glasses for vision correction Cardiovascular Surgical History: Reports: Cardiac Ablation, Other (See Below) Other Cardiovascular Surgeries/Procedures: ablasion Respiratory Surgical History: Reports: None GI Surgical History: Reports: Colonoscopy Female Surgical History: Reports: Dilitation & Evacuation, Other (See Below) Other Female Surgeries/Procedures: cervical bx Musculoskeletal Surgical History: Reports: Arthroscopic Knee, Other (See Below) Other Musculoskeletal Surgeries/Procedures:: ACL repair Social & Family History - Family History Family Medical History: Noncontributory Other Cardiac Family History: maternal grandmother et mother have left BBB Oncologic: Reports: Lung Other Oncologic Family History: grandma-lung - Caffeine Use Caffeine Use: Reports: Coffee Other Caffeine Use: 24oz daily. 20 oz pop - Living Situation & Occupation Living situation: Reports: with Family ED ROS GENERAL - Review of Systems Review Of Systems: Comprehensive ROS is negative, except as noted in HPI. ED EXAM, GENERAL - Physical Exam Exam: See Below Exam Limited By: No Limitations General Appearance: Alert, WD/WN, No Apparent Distress Eye Exam: Bilateral Eye: Normal Inspection Nose: Normal Inspection, Normal Mucosa, No Blood Throat/Mouth: Normal Inspection, Normal Lips, Normal Teeth, Normal Gums, Normal Oropharynx, Normal Voice, No Airway Compromise Head: Atraumatic, Normocephalic Neck: Normal Inspection, Supple, Non-Tender, Full Range of Motion Respiratory/Chest: No Respiratory Distress, Lungs Clear, Normal Breath Sounds, No Accessory Muscle Use, Chest Non-Tender Cardiovascular: Normal Peripheral Pulses, Regular Rate, Rhythm, No Edema, No Gallop, No JVD, No Murmur, No Rub GI/Abdominal: Normal Bowel Sounds, Soft, Non-Tender, No Organomegaly, No Distention, No Abnormal Bruit, No Mass Back Exam: Normal Inspection Extremities: Normal Inspection, Normal Range of Motion, Non-Tender, Normal Capillary Refill, No Pedal Edema Neurological: Alert, Oriented, CN II-XII Intact, Normal Cognition, No Motor/ Sensory Deficits Psychiatric: Normal Mood Skin Exam: Warm, Dry, Intact, Normal Color, No Rash EKG INTERPRETATION EKG Date: 08/21/19 Time: 15:53 Rhythm: Other (sinus rhythm) Rate (Beats/Min): 86 [place]: Normal P-Wave: Present QRS: Normal ST-T: Normal QT: Normal Comparison: No Change Course - Vital Signs Last Recorded V/S: Last Vital Signs Temp 99.2 F 08/21/19 15:45 Pulse 108 H 08/21/19 15:45 Resp 12 08/21/19 15:45 BP 149/82 H 08/21/19 15:45 Pulse Ox 100 08/21/19 15:45 Orthostatic Blood Pressure [ 155/85 Standing] Orthostatic Blood Pressure [ 139/85 Sitting] Orthostatic Blood Pressure [ 132/78 Supine] - Orders/Labs/Meds Orders: Active Orders 24 hr Category Date Time Status EKG 12 Lead [EKG Documentation Completion] [RC] STAT Care 08/21/19 15:46 Active Orthostatic Vital Signs [RC] ASDIRECTED Care 08/21/19 15:53 Active Peripheral IV Care [RC] . DIRECTED Care 08/21/19 16:59 Active Sodium Chloride 0.9% [Saline Flush] Med 08/21/19 16:59 Active 10 ml FLUSH ASDIRECTED PRN Peripheral IV Insertion Adult [OM.PC] Stat Oth 08/21/19 16:59 Ordered Medication Orders Sodium Chloride (Saline Flush) 10 ml FLUSH ASDIRECTED PRN PRN Reason: Keep Vein Open Last Admin: 08/21/19 17:04 Dose: 10 ml Labs: Laboratory Tests 08/21/19 08/21/19 08/21/19 Range/Units 16:12 16:12 16:12 WBC 8.3 (5.0-10.0) 10^3/uL RBC 4.37 (4.2-5.4) 10^6/uL Hgb 13.0 (12.0-16.0) g/dL Hct 39.1 (37.0-47.0) % MCV 89.5 (80-100) fL MCH 29.7 (27.0-34.0) pg MCHC 33.2 (33.0-35.0) g/dL Plt Count 265 (150-450) 10^3/uL Neut % (Auto) 50.5 (42.2-75.2) % Lymph % (Auto) 40.8 (20.5-50.1) % [place] % (Auto) 7.0 (2-8) % Eos % (Auto) 1.2 (1.0-3.0) % Baso % (Auto) 0.5 (0.0-1.0) % D-Dimer, Quantitative 100 (0-400) ng/mL Sodium 136 (135-145) mmol/L Potassium 3.4 L (3.6-5.0) mmol/L Chloride 102 (101-111) mmol/L Carbon Dioxide 23.0 (21.0-31.0) mmol/L Anion Gap 14.4 BUN 13 (7-18) mg/dL Creatinine 0.7 (0.6-1.3) mg/dL Est Cr Clr Drug Dosing 122.46 mL/min Estimated GFR (MDRD) > 60 BUN/Creatinine Ratio 18.57 Glucose 104 (74-105) mg/dL Calcium 9.8 (8.4-10.2) mg/dl Magnesium 1.8 (1.8-2.5) mg/dL Total Bilirubin 0.4 (0.2-1.0) mg/dL AST 18 (10-42) IU/L ALT 19 (10-60) IU/L Alkaline Phosphatase 64 (42-121) IU/L Troponin I 0.05 H* (0.00-0.02) ng/ml Total Protein 7.5 (6.7-8.2) g/dl Albumin 4.2 (3.2-5.5) g/dl Globulin 3.3 Albumin/Globulin Ratio 1.27 Lipase 36 (22-51) U/L TSH, Ultra Sensitive (0.45-5.33) uIu/mL HCG, Qual Negative 08/21/19 Range/Units 16:12 WBC (5.0-10.0) 10^3/uL RBC (4.2-5.4) 10^6/uL Hgb (12.0-16.0) g/dL Hct (37.0-47.0) % MCV (80-100) fL MCH (27.0-34.0) pg MCHC (33.0-35.0) g/dL Plt Count (150-450) 10^3/uL Neut % (Auto) (42.2-75.2) % Lymph % (Auto) (20.5-50.1) % [place] % (Auto) (2-8) % Eos % (Auto) (1.0-3.0) % Baso % (Auto) (0.0-1.0) % D-Dimer, Quantitative (0-400) ng/mL Sodium (135-145) mmol/L Potassium (3.6-5.0) mmol/L Chloride (101-111) mmol/L Carbon Dioxide (21.0-31.0) mmol/L Anion Gap BUN (7-18) mg/dL Creatinine (0.6-1.3) mg/dL Est Cr Clr Drug Dosing mL/min Estimated GFR (MDRD) BUN/Creatinine Ratio Glucose (74-105) mg/dL Calcium (8.4-10.2) mg/dl Magnesium (1.8-2.5) mg/dL Total Bilirubin (0.2-1.0) mg/dL AST (10-42) IU/L ALT (10-60) IU/L Alkaline Phosphatase (42-121) IU/L Troponin I (0.00-0.02) ng/ml Total Protein (6.7-8.2) g/dl Albumin (3.2-5.5) g/dl Globulin Albumin/Globulin Ratio Lipase (22-51) U/L TSH, Ultra Sensitive 2.15 (0.45-5.33) uIu/mL HCG, Qual Meds: Medications Generic Name Dose Route Start Last Admin Trade Name Freq PRN Reason Stop Dose Admin Sodium Chloride 10 ml 08/21/19 16:59 08/21/19 17:04 Saline Flush FLUSH 10 ml ASDIRECTED PRN Administration Keep Vein Open Discontinued Medications Generic Name Dose Route Start Last Admin Trade Name Freq PRN Reason Stop Dose Admin Aspirin 324 mg 08/21/19 16:54 08/21/19 17:03 Aspirin PO 08/21/19 16:55 324 mg ONETIME ONE Administration Departure - Departure Time of Disposition: 17:16 Disposition: DC/Tfer to [facility] 02 Reason for Transfer *Q: Other Condition: Undetermined Clinical Impression: Palpitation, Near syncope Chest pain Qualifiers: Chest pain type: unspecified Qualified Code(s): R07.9 - Chest pain, unspecified Forms: ED Department Discharge, Interfacility Transfer EMTALA Sepsis Event Note - Focused Exam Vital Signs: Vital Signs Temp Pulse Resp BP Pulse Ox 08/21/19 15:45 99.2 F 108 H 12 149/82 H 100 Date Exam was Performed: 08/21/19 Time Exam was Performed: 17:13 - My Orders Last 24 Hours: My Active Orders 08/21/19 15:46 EKG 12 Lead [EKG Documentation Completion] [RC] STAT 08/21/19 15:53 Orthostatic Vital Signs [RC] ASDIRECTED 08/21/19 16:59 Peripheral IV Care [RC] . DIRECTED Sodium Chloride 0.9% [Saline Flush] 10 ml FLUSH ASDIRECTED PRN Peripheral IV Insertion Adult [OM.PC] Stat - Assessment/Plan Last 24 Hours: My Active Orders 08/21/19 15:46 EKG 12 Lead [EKG Documentation Completion] [RC] STAT 08/21/19 15:53 Orthostatic Vital Signs [RC] ASDIRECTED 08/21/19 16:59 Peripheral IV Care [RC] . DIRECTED Sodium Chloride 0.9% [Saline Flush] 10 ml FLUSH ASDIRECTED PRN Peripheral IV Insertion Adult [OM.PC] Stat I have read and agree with the documentation that has been completed regarding this visit. By signing this record, I attest that the documentation was completed in my physical presence and is an accurate record of the encounter.
== END 2019-08-21 17:55 ==
LOC: DL.ED 15:37
DX: R07.9 Chest pain, unspecified (principal); R00.2 Palpitations; R55 Syncope and collapse; Z88.0 Allergy status to penicillin; Z88.1 Allergy status to other antibiotic agents
CPT/HCPCS: 36415; 80053; 83690; 83735; 84443; 84484; 84703; 85025; 85379; 93005; 99285; A9270

== ENCOUNTER 2019-12-23 18:26 | Emergency (ER) | payer MEDICAID ==
[2019-12-23 18:58] VITALS: BP 126/64; PULSE 90
== END 2019-12-23 19:28 | disposition left against medical advice (07) ==
LOC: DL.ED 18:26
DX: Z53.21 Procedure and treatment not carried out due to patient leaving prior to being seen by health care provider (principal)

== ENCOUNTER 2020-08-06 17:39 | Emergency (ER) | payer MEDICAID ==
[2020-08-06 18:04] VITALS: BP 139/86; PULSE 99
[2020-08-06] MEDS ORDERED: Sodium Chloride 0.9% 1,000 ML IV ONE (18:06)
[2020-08-06] MEDS ORDERED: Ketorolac 30 MG/ML SDV IVPUSH ONE (18:06)
[2020-08-06] MEDS ORDERED: Ondansetron 4 MG/2 ML SDV IVPUSH ONE (18:32)
--- NOTE | 2020-08-06 18:42 | EDM.PDOC ---
<Anmol Lopez - Last Filed: 08/06/20 19:03> ED HPI GENERAL MEDICAL PROBLEM - General Chief Complaint: Headache Stated Complaint: CHEST PAIN,MIGRAINE,CHILLS Time Seen by Provider: 08/06/20 18:25 Source of Information: Reports: Patient History Limitations: Reports: No Limitations - History of Present Illness INITIAL COMMENTS - FREE TEXT/NARRATIVE: This 35 yo female patient reports to the ED with a 3 day history of chest burning and a headache. The patient reports she does have a history of migraine headaches, but her symptoms are worse than normal. The patient reports she did take 1 ibuprofen (200 mg) at 1700 with no relief. Onset Date: 08/04/20 Duration: Constant, Getting Worse Location: Reports: Head, Chest Quality: Reports: Other Severity: Moderate Improves with: Reports: None Worsens with: Reports: None Context: Reports: Other Associated Symptoms: Reports: No Other Symptoms Head Pain Score (Numeric/FACES): 8 - Related Data Allergies Allergy/AdvReac Type Severity Reaction Status Date / Time clindamycin AdvReac Nausea and Verified 08/06/20 18:04 Vomiting Penicillins AdvReac Abdominal Verified 08/06/20 18:04 Cramps Home Meds: Home Meds . [No Known Home Meds] 08/21/19 [History] Past Medical History - Past Health History Medical/Surgical History: Denies Medical/Surgical History HEENT History: Reports: Impaired Vision Other HEENT History: WEARS CORRECTIVE LENS Cardiovascular History: Reports: Other (See Below) Other Cardiovascular History: PVC's. Ablation done on december 01, 2017. 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 Other SCREEN PRINTING INSPECTOR History: T.A.- May 09, 2015 Musculoskeletal History: Reports: Fracture, Other (See Below) Other Musculoskeletal History: ACL repaired Neurological History: Reports: Migraines Psychiatric History: Reports: Anxiety, Depression Other Psychiatric History: post depression Endocrine/Metabolic History: Reports: Hypothyroidism Other Endocrine/Metabolic History: postpardium, not now Hematologic History: Reports: None Immunologic History: Reports: None Oncologic (Cancer) History: Reports: None Dermatologic History: Reports: Other (See Below) Other Dermatologic History: HX OF HSV INFECTION - Infectious Disease History Infectious Disease History: Reports: C-Difficile, Chicken Pox, Herpes - Past Surgical History Head Surgeries/Procedures: Reports: None HEENT Surgical History: Reports: Adenoidectomy, Tonsillectomy Other HEENT Surgeries/Procedures: Wears glasses for vision correction Cardiovascular Surgical History: Reports: Cardiac Ablation, Other (See Below) Other Cardiovascular Surgeries/Procedures: ablasion Respiratory Surgical History: Reports: None GI Surgical History: Reports: Colonoscopy Female Surgical History: Reports: Dilitation & Evacuation, Other (See Below) Other Female Surgeries/Procedures: cervical bx Musculoskeletal Surgical History: Reports: Arthroscopic Knee, Other (See Below) Other Musculoskeletal Surgeries/Procedures:: ACL repair Social & Family History - Family History Family Medical History: No Pertinent Family History Other Cardiac Family History: maternal grandmother et mother have left BBB Oncologic: Reports: Lung Other Oncologic Family History: grandma-lung - Tobacco Use Tobacco Use Status *Q: Current Every Day Tobacco User Years of Tobacco use: 15 Packs/Tins Daily: 1 - Caffeine Use Caffeine Use: Reports: Coffee Other Caffeine Use: 24oz daily. 20 oz pop - Recreational Drug Use Recreational Drug Use: No - Living Situation & Occupation Living situation: Reports: with Family ED ROS GENERAL - Review of Systems Review Of Systems: Comprehensive ROS is negative, except as noted in HPI. - Physical Exam Exam: See Below Exam Limited By: No Limitations General Appearance: Alert, WD/WN, Moderate Distress Eye Exam: Bilateral Eye: EOMI, Normal Inspection, PERRL Ears: Normal External Exam, Normal Canal, Hearing Grossly Normal, Normal TMs Nose: Normal Inspection, Normal Mucosa, No Blood Throat/Mouth: Normal Inspection, Normal Lips, Normal Teeth, Normal Gums, Normal Oropharynx, Normal Voice, No Airway Compromise Head Exam: Atraumatic, Normocephalic Neck: Normal Inspection, Supple, Non-Tender, Full Range of Motion Respiratory/Chest: No Respiratory Distress, Lungs Clear, Normal Breath Sounds, No Accessory Muscle Use, Chest Non-Tender Cardiovascular: Normal Peripheral Pulses, Regular Rate, Rhythm, No Edema, No Gallop, No JVD, No Murmur, No Rub GI/Abdominal: Normal Bowel Sounds, Soft, Non-Tender, No Organomegaly, No Distention, No Abnormal Bruit, No Mass (Female) Exam: Deferred Rectal (Female) Exam: Deferred Neuro Exam (Abbreviated): Alert, Oriented, CN II-XII Intact, Normal Cognition, Normal Gait, Normal Reflexes, No Motor/Sensory Deficits Back Exam: Normal Inspection, Full Range of Motion, NT Extremities: Normal Inspection, Normal Range of Motion, Non-Tender, No Pedal Edema, Normal Capillary Refill Psychiatric: Normal Affect, Normal Mood Skin Exam: Warm, Dry, Intact, Normal Color, No Rash Departure - Departure Disposition: Home, Self-Care 01 Clinical Impression: Migraine - Discharge Information Instructions: Migraine Headache, [id number] Forms: ED Department Discharge Additional Instructions: Rest Follow up with your primary care facility Return to ER with any worsening of symptoms Sepsis Event Note (ED) - Evaluation Sepsis Screening Result: No Definite Risk <Ann Reeves - Last Filed: 08/06/20 21:38> Course - Vital Signs Last Recorded V/S: Last Vital Signs Temp 95.8 F L 08/06/20 18:01 Pulse 99 08/06/20 18:01 Resp 16 08/06/20 18:01 BP 139/86 08/06/20 18:01 Pulse Ox 99 08/06/20 18:01 - Orders/Labs/Meds Orders: Active Orders 24 hr Category Date Time Status CULTURE STREP A CONFIRMATION [RM] Stat Lab 08/06/20 18:34 Results STREP SCRN A RAPID W CULT CONF [RM] Stat Lab 08/06/20 18:34 Results Labs: Laboratory Tests 08/06/20 08/06/20 08/06/20 Range/Units 18:34 18:46 18:46 WBC 7.7 (5.0-10.0) 10^3/uL RBC 4.35 (4.2-5.4) 10^6/uL Hgb 13.3 (12.0-16.0) g/dL Hct 39.8 (37.0-47.0) % MCV 91.5 (80-100) fL MCH 30.6 (27.0-34.0) pg MCHC 33.4 (33.0-35.0) g/dL Plt Count 282 (150-450) 10^3/uL Neut % (Auto) 45.4 (42.2-75.2) % Lymph % (Auto) 46.8 (20.5-50.1) % [place] % (Auto) 6.2 (2-8) % Eos % (Auto) 1.0 (1.0-3.0) % Baso % (Auto) 0.6 (0.0-1.0) % Sodium 139 (136-145) mmol/L Potassium 3.8 (3.5-5.1) mmol/L Chloride 102 (98-107) mmol/L Carbon Dioxide 28 (21-32) mmol/L Anion Gap 12.8 (7-13) mEq/L BUN 11 (7-18) mg/dL Creatinine 0.78 (0.55-1.02) mg/dL Est Cr Clr Drug Dosing 108.86 mL/min Estimated GFR (MDRD) > 60 BUN/Creatinine Ratio 14.1 (No establ ref range) Glucose 95 (74-99) mg/dL Calcium 8.8 (8.5-10.1) mg/dL Total Bilirubin 0.2 (0.2-1.0) mg/dL AST 13 L (15-37) U/L ALT 24 (14-59) U/L Alkaline Phosphatase 69 (46-116) U/L Troponin I < 0.017 (0.000-0.056) ng/mL Total Protein 7.5 (6.4-8.2) g/dL Albumin 4.1 (3.4-5.0) g/dL Globulin 3.4 Albumin/Globulin Ratio 1.2 Influenza Type A RNA Negative (NEGATIVE) Influenza Type B RNA Negative (NEGATIVE) SARS-CoV-2 RNA (YANG) Negative (NEGATIVE) Meds: Medications Discontinued Medications Generic Name Dose Route Start Last Admin Trade Name Freq PRN Reason Stop Dose Admin Butorphanol Tartrate 2 mg 08/06/20 19:38 08/06/20 19:46 Stadol IVPUSH 08/06/20 19:39 2 mg ONETIME ONE Administration Sodium Chloride 1,000 mls @ 999 mls/hr 08/06/20 18:06 08/06/20 18:26 Normal Saline IV 08/06/20 19:06 999 mls/hr .BOLUS ONE Administration Lactated Ringer's 1,000 mls @ 999 mls/hr 08/06/20 20:07 08/06/20 20:08 Ringers, Lactated IV 08/06/20 21:07 999 mls/hr .BOLUS ONE Administration Ketorolac Tromethamine 30 mg 08/06/20 18:06 08/06/20 18:26 Toradol IVPUSH 08/06/20 18:07 30 mg ONETIME ONE Administration Lorazepam 1 mg 08/06/20 19:55 08/06/20 20:04 Ativan IVPUSH 08/06/20 19:56 1 mg ONETIME ONE Administration Ondansetron HCl 4 mg 08/06/20 18:32 08/06/20 18:40 Zofran IVPUSH 08/06/20 18:33 4 mg ONETIME ONE Administration - Radiology Interpretation Free Text/Narrative:: Head CT wo contrast: PROCEDURE INFORMATION: Exam: CT Head Without Contrast Exam date and time: 08/06/2020 8:37 PM Age: 35 years old Clinical indication: Numbness to the face TECHNIQUE: Imaging protocol: Computed tomography of the head without contrast. Sagittal and coronal reformatted images were created and reviewed. Radiation optimization: All CT scans at this facility use at least one of these dose optimization techniques: automated exposure control; mA and/or kV adjustment per patient size (includes targeted exams where dose is matched to clinical indication); or iterative recons truction. COMPARISON: MR Brain wo Cont 02/22/2020 1:51 PM FINDINGS: Brain: No acute intracranial hemorrhage. No acute infarct. No intra-axial or extra-axial masses. Graywhite matter differentiation is preserved. No cerebral edema. No extra-axial fluid collections. No midline shift. No evidence for Chiari 1 malformation. Cerebral ventricles: No hydrocephalus. Bones/joints: No acute fracture. Paranasal sinuses: Visualized paranasal sinuses are clear. Mastoid air cells: Mastoid air cells are clear bilaterally. Orbital cavity: Globes and lenses, extraocular muscles, and optic nerves are intact bilaterally. No acute intraorbital abnormality. Soft tissues: The extracranial soft tissues are unremarkable. IMPRESSION: No acute abnormality of the brain. Thank you for allowing us to participate in the care of your patient. Dictated and Authenticated by: Lacey Meehan MD 08/06/2020 9:07 PM Central Time ([place] & [place]) See rad report - Re-Assessments/Exams Free Text/Narrative Re-Assessment/Exam: 08/06/20 21:21 Patient states she feels very strange after the Stadol administration. She became very anxious, HR 115. Ativan was then given. Patient states the headache has improved but the odd sensations of the aura are still present. HR down to 72. 08/06/20 21:35 Patient states she is feeling tired at this time. Results of lab and diagnostics were discussed with the patient. Departure - Departure Time of Disposition: 21:37 Condition: Fair - Discharge Information *PRESCRIPTION DRUG MONITORING PROGRAM REVIEWED*: No *COPY OF PRESCRIPTION DRUG MONITORING REPORT IN PATIENT JEREMIAS: No Sepsis Event Note (ED) - Focused Exam Vital Signs: Vital Signs Temp Pulse Resp BP Pulse Ox 08/06/20 18:01 95.8 F L 99 16 139/86 99
[2020-08-06 19:18] LABS: ANION GAP 12.8 mEq/L (7-13); CHLORIDE,CL 102 mmol/L (98-107); SODIUM,NA 139 mmol/L (136-145)
[2020-08-06 19:19] LABS: CORONAVIRUS COVID-19 NAA NEGATIVE (NEGATIVE)
[2020-08-06] MEDS ORDERED: Butorphanol 2 MG/ML SDV IVPUSH ONE (19:38)
[2020-08-06] MEDS ORDERED: LORazepam 2 MG/ML SDV IVPUSH ONE (19:55)
[2020-08-06] MEDS ORDERED: Lactated Ringers 1,000 ML IV ONE (20:07)
--- NOTE | 2020-08-06 21:07 | CT ---
PROCEDURE INFORMATION: Exam: CT Head Without Contrast Exam date and time: 08/06/2020 8:37 PM Age: 35 years old Clinical indication: Numbness to the face TECHNIQUE: Imaging protocol: Computed tomography of the head without contrast. Sagittal and coronal reformatted images were created and reviewed. Radiation optimization: All CT scans at this facility use at least one of these dose optimization techniques: automated exposure control; mA and/or kV adjustment per patient size (includes targeted exams where dose is matched to clinical indication); or iterative reconstruction. COMPARISON: MR Brain wo Cont 02/22/2020 1:51 PM FINDINGS: Brain: No acute intracranial hemorrhage. No acute infarct. No intra-axial or extra-axial masses. Greco-white matter differentiation is preserved. No cerebral edema. No extra-axial fluid collections. No midline shift. No evidence for Chiari 1 malformation. Cerebral ventricles: No hydrocephalus. Bones/joints: No acute fracture. Paranasal sinuses: Visualized paranasal sinuses are clear. Mastoid air cells: Mastoid air cells are clear bilaterally. Orbital cavity: Globes and lenses, extraocular muscles, and optic nerves are intact bilaterally. No acute intraorbital abnormality. Soft tissues: The extracranial soft tissues are unremarkable. IMPRESSION: No acute abnormality of the brain.
== END 2020-08-06 21:47 | disposition home or self-care (01) ==
LOC: DL.ED 17:39
DX: G43.909 Migraine, unspecified, not intractable, without status migrainosus (principal); J45.909 Unspecified asthma, uncomplicated; Z72.0 Tobacco use; Z88.1 Allergy status to other antibiotic agents; Z88.0 Allergy status to penicillin; Z20.822 Contact with and (suspected) exposure to COVID-19
CPT/HCPCS: 0240U; 36415; 70450; 80053; 84484; 85025; 87081; 87430; 96374; 96375; 99285; J0595; J1885; J2060; J2405; J7030; J7120; 99283

== ENCOUNTER 2020-09-25 13:25 | Emergency (ER) | payer MEDICAID ==
[2020-09-25 13:40] VITALS: BP 133/86; PULSE 83
--- NOTE | 2020-09-25 13:53 | EDM.PDOC ---
ED HPI GENERAL MEDICAL PROBLEM - General Chief Complaint: Cardiovascular Problem Stated Complaint: IRREGULAR HEARTBEAT, HISTORY PVC'S Time Seen by Provider: 09/25/20 13:55 Source of Information: Reports: Patient History Limitations: Reports: No Limitations - History of Present Illness INITIAL COMMENTS - FREE TEXT/NARRATIVE: This 35 yo female patient reports to the ED due to noticing heart palpitations that started at 1100 this morning. The patient reports she has been checking her pulse and can feel a "vibration" in her chest with each abnormal beat. The patient reports she did have an ablation in the past (about 1 year ago) for similar symptoms, but has not had any episodes since that time. The patient denies any caffeine use, but does admit to nicotine (less today than normally). Onset: Today Onset Date: 09/25/20 Onset Time: 11:00 Duration: Intermittent Location: Reports: Chest Quality: Reports: Other Severity: Moderate Improves with: Reports: None Worsens with: Reports: None Context: Reports: Other Associated Symptoms: Reports: No Other Symptoms - Related Data Allergies Allergy/AdvReac Type Severity Reaction Status Date / Time clindamycin AdvReac Nausea and Verified 09/25/20 13:53 Vomiting Penicillins AdvReac Abdominal Verified 09/25/20 13:53 Cramps Home Meds: Home Meds . [No Known Home Meds] 08/21/19 [History] Past Medical History - Past Health History Medical/Surgical History: Denies Medical/Surgical History HEENT History: Reports: Impaired Vision Other HEENT History: WEARS CORRECTIVE LENS Cardiovascular History: Reports: Other (See Below) Other Cardiovascular History: PVC's. Ablation done on december 01, 2017. 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 Other PRODUCTION ANALYST History: T.A.- May 09, 2015 Musculoskeletal History: Reports: Fracture, Other (See Below) Other Musculoskeletal History: ACL repaired Neurological History: Reports: Migraines Psychiatric History: Reports: Anxiety, Depression Other Psychiatric History: post depression Endocrine/Metabolic History: Reports: Hypothyroidism Other Endocrine/Metabolic History: postpardium, not now Hematologic History: Reports: None Immunologic History: Reports: None Oncologic (Cancer) History: Reports: None Dermatologic History: Reports: Other (See Below) Other Dermatologic History: HX OF HSV INFECTION - Infectious Disease History Infectious Disease History: Reports: C-Difficile, Chicken Pox, Herpes - Past Surgical History Head Surgeries/Procedures: Reports: None HEENT Surgical History: Reports: Adenoidectomy, Tonsillectomy Other HEENT Surgeries/Procedures: Wears glasses for vision correction Cardiovascular Surgical History: Reports: Cardiac Ablation, Other (See Below) Other Cardiovascular Surgeries/Procedures: ablasion Respiratory Surgical History: Reports: None GI Surgical History: Reports: Colonoscopy Female Surgical History: Reports: Dilitation & Evacuation, Other (See Below) Other Female Surgeries/Procedures: cervical bx Musculoskeletal Surgical History: Reports: Arthroscopic Knee, Other (See Below) Other Musculoskeletal Surgeries/Procedures:: ACL repair Social & Family History - Family History Family Medical History: No Pertinent Family History Other Cardiac Family History: maternal grandmother et mother have left BBB Oncologic: Reports: Lung Other Oncologic Family History: grandma-lung - Caffeine Use Caffeine Use: Reports: Coffee Other Caffeine Use: 24oz daily. 20 oz pop - Living Situation & Occupation Living situation: Reports: with Family ED ROS GENERAL - Review of Systems Review Of Systems: Comprehensive ROS is negative, except as noted in HPI. ED EXAM, GENERAL - Physical Exam Exam: See Below Exam Limited By: No Limitations General Appearance: Alert, WD/WN, Anxious, Moderate Distress Eye Exam: Bilateral Eye: EOMI, Normal Inspection, PERRL Ears: Normal External Exam, Normal Canal, Hearing Grossly Normal, Normal TMs Nose: Normal Inspection, Normal Mucosa, No Blood Throat/Mouth: Normal Inspection, Normal Lips, Normal Teeth, Normal Gums, Normal Oropharynx, Normal Voice, No Airway Compromise Head: Atraumatic, Normocephalic Neck: Normal Inspection, Supple, Non-Tender, Full Range of Motion Respiratory/Chest: No Respiratory Distress, Lungs Clear, Normal Breath Sounds, No Accessory Muscle Use, Chest Non-Tender Cardiovascular: No Edema, No Gallop, No JVD, No Murmur, No Rub, Extra Beats GI/Abdominal: Normal Bowel Sounds, Soft, Non-Tender, No Organomegaly, No Distention, No Abnormal Bruit, No Mass (Female) Exam: Deferred Rectal (Female) Exam: Deferred Back Exam: Normal Inspection, Full Range of Motion, NT Extremities: Normal Inspection, Normal Range of Motion, Non-Tender, Normal Capillary Refill, No Pedal Edema Neurological: Alert, Oriented, CN II-XII Intact, Normal Cognition, Normal Gait, Normal Reflexes, No Motor/Sensory Deficits Psychiatric: Normal Affect, Normal Mood Skin Exam: Warm, Dry, Intact, Normal Color, No Rash Lymphatic: No Adenopathy #1 Interpretation EKG Date: 09/25/20 Time: 13:44 Rhythm: NSR Rate (Beats/Min): 85 [place] Bottom: Normal P-Wave: Present QRS: Normal ST-T: Normal QT: Normal Comparison: NA - No Prior EKG EKG Interpretation Comments: NSR with PVCs Course - Vital Signs Last Recorded V/S: Last Vital Signs Temp 36.7 C 09/25/20 13:39 Pulse 83 09/25/20 13:39 Resp 14 09/25/20 13:39 BP 133/86 09/25/20 13:39 Pulse Ox 100 09/25/20 13:39 - Orders/Labs/Meds Orders: Active Orders 24 hr Category Date Time Status EKG Documentation Completion [RC] STAT Care 09/25/20 13:35 Active Labs: Laboratory Tests 09/25/20 09/25/20 Range/Units 13:32 13:32 WBC 7.8 (5.0-10.0) 10^3/uL RBC 4.61 (4.2-5.4) 10^6/uL Hgb 14.4 (12.0-16.0) g/dL Hct 42.4 (37.0-47.0) % MCV 92.0 (80-100) fL MCH 31.2 (27.0-34.0) pg MCHC 34.0 (33.0-35.0) g/dL Plt Count 270 (150-450) 10^3/uL Neut % (Auto) 50.3 (42.2-75.2) % Lymph % (Auto) 41.4 (20.5-50.1) % [place] % (Auto) 6.3 (2-8) % Eos % (Auto) 1.2 (1.0-3.0) % Baso % (Auto) 0.8 (0.0-1.0) % Sodium 141 (136-145) mmol/L Potassium 3.5 (3.5-5.1) mmol/L Chloride 103 (98-107) mmol/L Carbon Dioxide 27 (21-32) mmol/L Anion Gap 14.5 H (7-13) mEq/L BUN 9 (7-18) mg/dL Creatinine 0.74 (0.55-1.02) mg/dL Est Cr Clr Drug Dosing 114.74 mL/min Estimated GFR (MDRD) > 60 BUN/Creatinine Ratio 12.2 (No establ ref range) Glucose 119 H (74-99) mg/dL Calcium 8.8 (8.5-10.1) mg/dL Total Bilirubin 0.4 (0.2-1.0) mg/dL AST 14 L (15-37) U/L ALT 27 (14-59) U/L Alkaline Phosphatase 75 (46-116) U/L Troponin I < 0.017 (0.000-0.056) ng/mL Total Protein 8.1 (6.4-8.2) g/dL Albumin 4.2 (3.4-5.0) g/dL Globulin 3.9 Albumin/Globulin Ratio 1.1 Departure - Departure Time of Disposition: 15:19 Disposition: Home, Self-Care 01 Condition: Fair Clinical Impression: Frequent PVCs Instructions: Premature Ventricular Contraction Forms: ED Department Discharge Care Plan Goals: The patient was advised of the examination, lab, EKG and x-ray results during the visit. The patient was encouraged to follow-up with her primary care facility for continued evaluation and treatment. If the patient has any additional symptoms or concerns, the patient should either return to the emergency department or visit her primary care facility. Sepsis Event Note (ED) - Evaluation Sepsis Screening Result: No Definite Risk - Focused Exam Vital Signs: Vital Signs Temp Pulse Resp BP Pulse Ox 09/25/20 13:39 36.7 C 83 14 133/86 100 - My Orders Last 24 Hours: My Active Orders 09/25/20 13:35 EKG Documentation Completion [RC] STAT - Assessment/Plan Last 24 Hours: My Active Orders 09/25/20 13:35 EKG Documentation Completion [RC] STAT
[2020-09-25 14:02] LABS: ANION GAP 14.5 mEq/L (7-13); CHLORIDE,CL 103 mmol/L (98-107); SODIUM,NA 141 mmol/L (136-145)
--- NOTE | 2020-09-25 14:10 | CR ---
EXAMINATION: Chest 1V Frontal SEX: Female AGE: 35 years CLINICAL HISTORY: 35-year-old female with irregular heartbeats. Interpretation: No acute new cardiopulmonary abnormality identified in the interval since comparison film 28 July 2018. Chronic interstitial pattern (smoker?) but no new lung mass, hilar lymphadenopathy or focal lobar consolidation (infiltrate/atelectasis). No peripheral "groundglass" interstitial lung densities. Normal cardiac silhouette. No pulmonary vascular congestion, alveolar edema or dependent pleural effusion. No pneumothorax or pneumomediastinum. Thorax unremarkable.
== END 2020-09-25 15:33 | disposition home or self-care (01) ==
LOC: DL.ED 13:25
DX: I49.3 Ventricular premature depolarization (principal); J45.909 Unspecified asthma, uncomplicated; Z88.1 Allergy status to other antibiotic agents; Z88.0 Allergy status to penicillin
CPT/HCPCS: 36415; 71045; 80053; 84484; 85025; 93005; 93010; 99284; 99285-25

== ENCOUNTER 2021-01-06 09:27 | Emergency (ER) | payer MEDICAID, BC ==
[2021-01-06 09:56] VITALS: BP 111/84; PULSE 85
--- NOTE | 2021-01-06 10:01 | EDM.PDOC ---
ED HPI GENERAL MEDICAL PROBLEM - General Chief Complaint: General Stated Complaint: [id number] CHEST COLD WOKE UP GASPING Time Seen by Provider: 01/06/21 10:00 Source of Information: Reports: Patient, RN, RN Notes Reviewed History Limitations: Reports: No Limitations - History of Present Illness INITIAL COMMENTS - FREE TEXT/NARRATIVE: Susan is a 35 y/o female who presents to the ED via personal vehicle with complaints of productive cough and shortness of breath. The patient reports her symptoms began six days ago and have progressively worsened in that time. She notes a sore throat earlier in the week that has since resolved. Additionally, she notes palpitations, which is not uncommon for her (she has received multiple work-ups for Marfan's Syndrome). She has attempted taking albuterol which causes her SOB and palpitations to worsen. She has been taking doses of ibuprofen, drinking tea, and doing hot steamy showers for alleviation of symptoms. She denies fever, shaking chills, chest pain, dyspepsia, nausea, vomiting, or diarrhea. She attests to smoking 1/2 pack of cigarettes per day, however she has been unable to smoke during her illness. She reports transient alcohol use and denies recreational drug use. - Related Data Allergies Allergy/AdvReac Type Severity Reaction Status Date / Time clindamycin AdvReac Nausea and Verified 01/06/21 09:54 Vomiting Penicillins AdvReac Abdominal Verified 01/06/21 09:54 Cramps Home Meds: Home Meds . [No Known Home Meds] 08/21/19 [History] Past Medical History - Past Health History Medical/Surgical History: Denies Medical/Surgical History HEENT History: Reports: Impaired Vision Other HEENT History: WEARS CORRECTIVE LENS Cardiovascular History: Reports: Other (See Below) Other Cardiovascular History: PVC's. Ablation done on december 01, 2017. 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: T.A.- May 09, 2015 Musculoskeletal History: Reports: Fracture, Other (See Below) Other Musculoskeletal History: ACL repaired Neurological History: Reports: Migraines Psychiatric History: Reports: Anxiety, Depression Other Psychiatric History: post depression Endocrine/Metabolic History: Reports: Hypothyroidism Other Endocrine/Metabolic History: postpardium, not now Hematologic History: Reports: None Immunologic History: Reports: None Oncologic (Cancer) History: Reports: None Dermatologic History: Reports: Other (See Below) Other Dermatologic History: HX OF HSV INFECTION - Infectious Disease History Infectious Disease History: Reports: C-Difficile, Chicken Pox, Herpes - Past Surgical History Head Surgeries/Procedures: Reports: None HEENT Surgical History: Reports: Adenoidectomy, Tonsillectomy Other HEENT Surgeries/Procedures: Wears glasses for vision correction Cardiovascular Surgical History: Reports: Cardiac Ablation, Other (See Below) Other Cardiovascular Surgeries/Procedures: ablasion Respiratory Surgical History: Reports: None GI Surgical History: Reports: Colonoscopy Female Surgical History: Reports: Dilitation & Evacuation, Other (See Below) Other Female Surgeries/Procedures: cervical bx Musculoskeletal Surgical History: Reports: Arthroscopic Knee, Other (See Below) Other Musculoskeletal Surgeries/Procedures:: ACL repair Social & Family History - Family History Family Medical History: No Pertinent Family History Other Cardiac Family History: maternal grandmother et mother have left BBB Oncologic: Reports: Lung Other Oncologic Family History: grandma-lung - Tobacco Use Tobacco Use Status *Q: Current Every Day Tobacco User Years of Tobacco use: 20 Packs/Tins Daily: 0.5 - Caffeine Use Caffeine Use: Reports: Coffee Other Caffeine Use: 24oz daily. 20 oz pop - Recreational Drug Use Recreational Drug Use: No - Living Situation & Occupation Living situation: Reports: with Family ED ROS GENERAL - Review of Systems Review Of Systems: Comprehensive ROS is negative, except as noted in HPI. ED EXAM, GENERAL - Physical Exam Exam: See Below Exam Limited By: No Limitations General Appearance: Alert, No Apparent Distress, Thin Eye Exam: Bilateral Eye: EOMI, Normal Inspection, PERRL (3mm) Ears: Normal External Exam, Normal Canal, Hearing Grossly Normal, Normal TMs Ear Exam: Bilateral Ear: Auricle Normal, Canal Normal, TM normal Nose: No Blood, Nasal Drainage, Clear Rhinorrhea, Other (Injected turbinates). No: Nasal Tenderness, Nasal Deformity, Nasal Swelling Throat/Mouth: Normal Voice, No Airway Compromise, Inflammation (To posterior oropharynx) Head: Atraumatic, Normocephalic Neck: Normal Inspection, Supple, Non-Tender, Full Range of Motion. No: Lymphadenopathy (L), Lymphadenopathy (R) Respiratory/Chest: No Respiratory Distress, No Accessory Muscle Use, Chest Non- Tender, Rales (To right lower base). No: Crackles, Rhonchi, Wheezing, Stridor Cardiovascular: Normal Peripheral Pulses, Regular Rate, Rhythm, No Edema, No Gallop, No JVD, No Murmur, No Rub Peripheral Pulses: 2+: Radial (L), Radial (R) GI/Abdominal: Normal Bowel Sounds, Soft, Non-Tender, No Distention, No Abnormal Bruit, No Mass, Pelvis Stable Back Exam: Normal Inspection, Full Range of Motion Extremities: Normal Inspection, Normal Range of Motion, Non-Tender, No Pedal Edema, Normal Capillary Refill Neurological: Alert, Oriented, CN II-XII Intact, Normal Cognition, Normal Gait, No Motor/Sensory Deficits Psychiatric: Normal Affect, Normal Mood Skin Exam: Warm, Dry, Intact, Normal Color, No Rash. No: Cyanosis, Erythema, Jaundice, Mottled, Pallor Course - Vital Signs Last Recorded V/S: Last Vital Signs Temp 98.1 F 01/06/21 09:54 Pulse 85 01/06/21 09:54 Resp 18 01/06/21 09:54 BP 111/84 01/06/21 09:54 Pulse Ox 97 01/06/21 09:54 - Radiology Interpretation Free Text/Narrative:: [facility] Final Radiology Report Call: [phone] assistance Online chat: [email or web address] Name: SUSAN WILSON Age: 35Years F Date: 01/06/2021 SSN: -- : [id number] Study: CR CHEST 2V Requesting Physician: Brie Santos Images: 2 Addl Studies: Provided Clinical History: Cough and SOB x6 days; Rales to right lower lung Contrast: Contrast Medium: Contrast Amount: Contrast Method: CONFIDENTIALITY STATEMENT This report is intended only for use by the referring physician, and only in accordance with law. If you received this in error, call [phone]. Page 1 of 1 PROCEDURE INFORMATION: Exam: XR Chest Exam date and time: 01/06/2021 10:12 AM Age: 35 years old Clinical indication: Cough and shortness of breath; Additional info: Cough and SOB x6 days; Rales to right lower lung TECHNIQUE: Imaging protocol: XR of the chest. Views: 2 views. COMPARISON: CT Chest w Cont 07/26/2018 8:58 AM FINDINGS: Lungs: Unremarkable. No consolidation. Pleural spaces: Unremarkable. No pleural effusion. No pneumothorax. Heart/Mediastinum: Unremarkable. No cardiomegaly. Bones/joints: Unremarkable. IMPRESSION: No acute findings. Thank you for allowing us to participate in the care of your patient. Dictated and Authenticated by: Margarita Tillman MD 01/06/2021 11:42 AM Central Time ([place] & [place]) - Re-Assessments/Exams Free Text/Narrative Re-Assessment/Exam: 01/06/21 CXR obtained. Findings of examination and imaging reviewed with patient. Given progressive symptoms with treat with pulmonary burst of prednisone. Discussed supportive cares for URI. Red flag signs and symptoms which would warrant reevaluation reviewed. Patient verbalized understanding and agreement with the plan of care. Departure - Departure Time of Disposition: 11:50 Disposition: Home, Self-Care 01 Condition: Good Clinical Impression: Shortness of breath URI (upper respiratory infection) Qualifiers: URI type: unspecified viral URI Qualified Code(s): J06.9 - Acute upper respiratory infection, unspecified - Discharge Information *PRESCRIPTION DRUG MONITORING PROGRAM REVIEWED*: Not Applicable *COPY OF PRESCRIPTION DRUG MONITORING REPORT IN PATIENT JEREMIAS: Not Applicable Instructions: Shortness of Breath, Adult, [id number], Upper Respiratory Infection, Adult, [id number] Referrals: Mayela Díaz MD [Primary Care Provider] - Forms: ED Department Discharge Additional Instructions: Rx: prednisone 1.) Continue with supportive care measures for symptoms 2.) Follow up with primary care provider, or return to the emergency department, with fever, shaking chills, or worsening symptoms despite medication. Sepsis Event Note (ED) - Evaluation Sepsis Screening Result: No Definite Risk - Focused Exam Vital Signs: Vital Signs Temp Pulse Resp BP Pulse Ox 01/06/21 09:54 98.1 F 85 18 111/84 97
--- NOTE | 2021-01-06 11:43 | CR ---
PROCEDURE INFORMATION: Exam: XR Chest Exam date and time: 01/06/2021 10:12 AM Age: 35 years old Clinical indication: Cough and shortness of breath; Additional info: Cough and SOB x6 days; Rales to right lower lung TECHNIQUE: Imaging protocol: XR of the chest. Views: 2 views. COMPARISON: CT Chest w Cont 07/26/2018 8:58 AM FINDINGS: Lungs: Unremarkable. No consolidation. Pleural spaces: Unremarkable. No pleural effusion. No pneumothorax. Heart/Mediastinum: Unremarkable. No cardiomegaly. Bones/joints: Unremarkable. IMPRESSION: No acute findings.
== END 2021-01-06 11:58 | disposition home or self-care (01) ==
LOC: DL.ED 09:27
DX: J06.9 Acute upper respiratory infection, unspecified (principal); J45.909 Unspecified asthma, uncomplicated; Z72.0 Tobacco use; Z88.1 Allergy status to other antibiotic agents; Z88.0 Allergy status to penicillin
CPT/HCPCS: 71046; 99283; 99284-25

== ENCOUNTER 2021-02-24 05:01 | Emergency (ER) | payer MEDICAID, BC ==
[2021-02-24] MEDS ORDERED: Sodium Chloride 0.9% 1,000 ML IV ONE (05:13)
[2021-02-24] MEDS ORDERED: Ketorolac 30 MG/ML SDV IVPUSH ONE (05:13)
[2021-02-24] MEDS ORDERED: Metoclopramide 10 MG/2 ML SDV IVPUSH ONE (05:13)
--- NOTE | 2021-02-24 05:21 | EDM.PDOC ---
ED HPI GENERAL MEDICAL PROBLEM - General Stated Complaint: MIGRAINE, 1 HOUR AGO, HURTS Time Seen by Provider: 02/24/21 05:10 Source of Information: Reports: Patient History Limitations: Reports: No Limitations - History of Present Illness INITIAL COMMENTS - FREE TEXT/NARRATIVE: This 36 yo female patient reports to the ED with a 1 hour history of a migraine headache. The patient reports her headache started at 0400 this morning. Since the onset of the headache, the patient reports she took ibuprofen and Tylenol, but may have vomited all of the medication up. The patient reports she has had migraine headaches "all of her life", but this one seems to have hit her harder. 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 [No Known Home Meds] 08/21/19 [History] Past Medical History - Past Health History Medical/Surgical History: Denies Medical/Surgical History HEENT History: Reports: Impaired Vision Other HEENT History: WEARS CORRECTIVE LENS Cardiovascular History: Reports: Other (See Below) Other Cardiovascular History: PVC's. Ablation done on december 01, 2017. 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: T.A.- May 09, 2015 Musculoskeletal History: Reports: Fracture, Other (See Below) Other Musculoskeletal History: ACL repaired Neurological History: Reports: Migraines Psychiatric History: Reports: Anxiety, Depression Other Psychiatric History: post depression Endocrine/Metabolic History: Reports: Hypothyroidism Other Endocrine/Metabolic History: postpardium, not now Hematologic History: Reports: None Immunologic History: Reports: None Oncologic (Cancer) History: Reports: None Dermatologic History: Reports: Other (See Below) Other Dermatologic History: HX OF HSV INFECTION - Infectious Disease History Infectious Disease History: Reports: C-Difficile, Chicken Pox, Herpes - Past Surgical History Head Surgeries/Procedures: Reports: None HEENT Surgical History: Reports: Adenoidectomy, Tonsillectomy Other HEENT Surgeries/Procedures: Wears glasses for vision correction Cardiovascular Surgical History: Reports: Cardiac Ablation, Other (See Below) Other Cardiovascular Surgeries/Procedures: ablasion Respiratory Surgical History: Reports: None GI Surgical History: Reports: Colonoscopy Female Surgical History: Reports: Dilitation & Evacuation, Other (See Below) Other Female Surgeries/Procedures: cervical bx Musculoskeletal Surgical History: Reports: Arthroscopic Knee, Other (See Below) Other Musculoskeletal Surgeries/Procedures:: ACL repair Social & Family History - Family History Family Medical History: No Pertinent Family History Other Cardiac Family History: maternal grandmother et mother have left BBB Oncologic: Reports: Lung Other Oncologic Family History: grandma-lung - Caffeine Use Caffeine Use: Reports: Coffee Other Caffeine Use: 24oz daily. 20 oz pop - Living Situation & Occupation Living situation: Reports: with Family ED ROS GENERAL - Review of Systems Review Of Systems: Comprehensive ROS is negative, except as noted in HPI. - Physical Exam Exam: See Below Exam Limited By: No Limitations General Appearance: Alert, WD/WN, Moderate Distress Eye Exam: Bilateral Eye: EOMI, Normal Inspection, PERRL Ears: Normal External Exam, Normal Canal, Hearing Grossly Normal, Normal TMs Nose: Normal Inspection, Normal Mucosa, No Blood Throat/Mouth: Normal Inspection, Normal Lips, Normal Teeth, Normal Gums, Normal Oropharynx, Normal Voice, No Airway Compromise Head Exam: Atraumatic, Normocephalic Neck: Normal Inspection, Supple, Non-Tender, Full Range of Motion Respiratory/Chest: No Respiratory Distress, Lungs Clear, Normal Breath Sounds, No Accessory Muscle Use, Chest Non-Tender Cardiovascular: Normal Peripheral Pulses, Regular Rate, Rhythm, No Edema, No Gal lop, No JVD, No Murmur, No Rub GI/Abdominal: Normal Bowel Sounds, Soft, Non-Tender, No Organomegaly, No Distention, No Abnormal Bruit, No Mass (Female) Exam: Deferred Rectal (Female) Exam: Deferred Neuro Exam (Abbreviated): Alert, Oriented, CN II-XII Intact, Normal Cognition, Normal Gait, Normal Reflexes, No Motor/Sensory Deficits Back Exam: Normal Inspection, Full Range of Motion, NT Extremities: Normal Inspection, Normal Range of Motion, Non-Tender, No Pedal Edema, Normal Capillary Refill Psychiatric: Normal Affect, Normal Mood Skin Exam: Warm, Dry, Intact, Normal Color, No Rash Course - Vital Signs Last Recorded V/S: Last Vital Signs Temp 96.9 F 02/24/21 05:28 Pulse 89 02/24/21 05:28 Resp 18 02/24/21 05:28 BP 148/100 H 02/24/21 05:28 Pulse Ox 97 02/24/21 05:28 - Orders/Labs/Meds Orders: Active Orders 24 hr Category Date Time Status Sodium Chloride 0.9% [Normal Saline] 1,000 ml Med 02/24/21 05:13 Active IV .BOLUS Medication Orders Sodium Chloride (Normal Saline) 1,000 mls @ 999 mls/hr IV .BOLUS ONE Stop: 02/24/21 06:13 Last Admin: 02/24/21 05:25 Dose: 999 mls/hr Documented by: STEFANO Meds: Medications Generic Name Dose Route Start Last Admin Trade Name Freq PRN Reason Stop Dose Admin Sodium Chloride 1,000 mls @ 999 mls/hr 02/24/21 05:13 02/24/21 05:25 Normal Saline IV 02/24/21 06:13 999 mls/hr .BOLUS ONE Administration Discontinued Medications Generic Name Dose Route Start Last Admin Trade Name Freq PRN Reason Stop Dose Admin Ketorolac Tromethamine 30 mg 02/24/21 05:13 02/24/21 05:26 Ketorolac 30 Mg/Ml Sdv IVPUSH 02/24/21 05:14 30 mg ONETIME ONE Administration Metoclopramide HCl 10 mg 02/24/21 05:13 02/24/21 05:25 Metoclopramide 10 Mg/2 Ml Sdv IVPUSH 02/24/21 05:14 10 mg ONETIME ONE Administration Departure - Departure Time of Disposition: 05:57 Disposition: Home, Self-Care 01 Condition: Fair Clinical Impression: Migraine - Discharge Information *PRESCRIPTION DRUG MONITORING PROGRAM REVIEWED*: Not Applicable *COPY OF PRESCRIPTION DRUG MONITORING REPORT IN PATIENT JEREMIAS: Not Applicable Instructions: Migraine Headache, [id number] Forms: ED Department Discharge Care Plan Goals: The patient was advised of the examination results during the visit. The patient was given a liter of IV fluid, IV Toradol and IV Reglan while in the ED with symptom improvement. The patient was advised to rest and relax over the next 24 hours. If the patient has any additional symptoms or concerns, the patient should either return to the emergency department or visit her primary care facility. Sepsis Event Note (ED) - Focused Exam Vital Signs: Vital Signs Temp Pulse Resp BP Pulse Ox 02/24/21 05:28 96.9 F 89 18 148/100 H 97 - My Orders Last 24 Hours: My Active Orders 02/24/21 05:13 Sodium Chloride 0.9% [Normal Saline] 1,000 ml IV .BOLUS - Assessment/Plan Last 24 Hours: My Active Orders 02/24/21 05:13 Sodium Chloride 0.9% [Normal Saline] 1,000 ml IV .BOLUS
[2021-02-24 05:31] VITALS: BP 148/100; PULSE 89
== END 2021-02-24 06:33 | disposition home or self-care (01) ==
LOC: DL.ED 05:01
DX: G43.909 Migraine, unspecified, not intractable, without status migrainosus (principal); Z88.0 Allergy status to penicillin; Z88.1 Allergy status to other antibiotic agents; Z72.0 Tobacco use
CPT/HCPCS: 96374; 96375; 99283; 99283-25; J1885; J2765; J7030

== ENCOUNTER 2021-05-27 08:13 | Emergency (ER) | payer BC, MEDICAID ==
[2021-05-27 08:40] VITALS: BP 116/73; PULSE 68
[2021-05-27] MEDS ORDERED: methylPREDNISolone Sodium Succinate 125 MG/2 ML SDV IVPUSH ONE (08:46)
--- NOTE | 2021-05-27 09:10 | EDM.PDOC ---
ED HPI GENERAL MEDICAL PROBLEM - General Chief Complaint: Back Pain or Injury Stated Complaint: IN BY AMBULANCE Time Seen by Provider: 05/27/21 08:45 Source of Information: Reports: Patient History Limitations: Reports: No Limitations - History of Present Illness INITIAL COMMENTS - FREE TEXT/NARRATIVE: This 36 yo female patient was brought to the ED by [facility] due to lower back pain. The patient reports her back pain started on Thursday of last week. The patient reports her back pain got better by last Thursday, but increased over the weekend. The patient reports it took her 20 minutes to get out of bed and 20 minutes to get off the toilet. The patient reports she did take an ibuprofen (200 mg) today for her back pain. The patient reports she has not been seen in the clinic for her current pain. The patient reports she has had back pain in the past, but the pain is worse today. The patient reports she normally goes to the chiropractor for low back pain, but has not been able to get into them yet. Onset Date: 05/21/21 Duration: Constant Location: Reports: Back (low back pain) Quality: Reports: Ache, Sharp Severity: Moderate Improves with: Reports: None Worsens with: Reports: None Context: Reports: Other - Related Data Allergies Allergy/AdvReac Type Severity Reaction Status Date / Time clindamycin AdvReac Nausea and Verified 05/27/21 08:40 Vomiting Penicillins AdvReac Abdominal Verified 05/27/21 08:40 Cramps Home Meds: Home Meds . [No Known Home Meds] 08/21/19 [History] Past Medical History - Past Health History Medical/Surgical History: Denies Medical/Surgical History HEENT History: Reports: Impaired Vision Other HEENT History: WEARS CORRECTIVE LENS Cardiovascular History: Reports: Other (See Below) Other Cardiovascular History: PVC's. Ablation done on december 01, 2017. 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 Other STONE BANKER History: T.A.- May 09, 2015 Musculoskeletal History: Reports: Fracture, Other (See Below) Other Musculoskeletal History: ACL repaired Neurological History: Reports: Migraines Psychiatric History: Reports: Anxiety, Depression Other Psychiatric History: post depression Endocrine/Metabolic History: Reports: Hypothyroidism Other Endocrine/Metabolic History: postpardium, not now Hematologic History: Reports: None Immunologic History: Reports: None Oncologic (Cancer) History: Reports: None Dermatologic History: Reports: Other (See Below) Other Dermatologic History: HX OF HSV INFECTION - Infectious Disease History Infectious Disease History: Reports: C-Difficile, Chicken Pox, Herpes - Past Surgical History Head Surgeries/Procedures: Reports: None HEENT Surgical History: Reports: Adenoidectomy, Tonsillectomy Other HEENT Surgeries/Procedures: Wears glasses for vision correction Cardiovascular Surgical History: Reports: Cardiac Ablation, Other (See Below) Other Cardiovascular Surgeries/Procedures: ablasion Respiratory Surgical History: Reports: None GI Surgical History: Reports: Colonoscopy Female Surgical History: Reports: Dilitation & Evacuation, Other (See Below) Other Female Surgeries/Procedures: cervical bx Musculoskeletal Surgical History: Reports: Arthroscopic Knee, Other (See Below) Other Musculoskeletal Surgeries/Procedures:: ACL repair Social & Family History - Family History Family Medical History: No Pertinent Family History Other Cardiac Family History: maternal grandmother et mother have left BBB Oncologic: Reports: Lung Other Oncologic Family History: grandma-lung - Tobacco Use Tobacco Use Status *Q: Current Every Day Tobacco User Years of Tobacco use: 20 Packs/Tins Daily: 1 - Caffeine Use Caffeine Use: Reports: Coffee, Soda, Tea Other Caffeine Use: 24oz daily. 20 oz pop - Recreational Drug Use Recreational Drug Use: No - Living Situation & Occupation Living situation: Reports: with Family ED ROS GENERAL - Review of Systems Review Of Systems: Comprehensive ROS is negative, except as noted in HPI. ED EXAM,LOWER BACK PAIN/INJURY - Physical Exam Exam: See Below Exam Limited By: No Limitations General Appearance: Alert, WD/WN, Moderate Distress Eye Exam: Bilateral Eye: EOMI, Normal Inspection, PERRL Ears: Normal External Exam, Normal Canal, Hearing Grossly Normal, Normal TMs Nose: Normal Inspection, Normal Mucosa, No Blood Throat/Mouth: Normal Inspection, Normal Lips, Normal Teeth, Normal Gums, Normal Oropharynx, Normal Voice, No Airway Compromise Head: Atraumatic, Normocephalic Neck: Normal Inspection, Supple, Non-Tender, Full Range of Motion Respiratory/Chest: No Respiratory Distress, Lungs Clear, Normal Breath Sounds, No Accessory Muscle Use, Chest Non-Tender Cardiovascular: Normal Peripheral Pulses, Regular Rate, Rhythm, No Edema, No Gallop, No JVD, No Murmur, No Rub GI/Abdominal: Normal Bowel Sounds, Soft, Non-Tender, No Organomegaly, No Distention, No Abnormal Bruit, No Mass (Female) Exam: Deferred Rectal (Female) Exam: Deferred Back Exam: Paraspinal Tenderness, Vertebral Tenderness Extremities: Normal Inspection, Normal Range of Motion, Non-Tender, No Pedal Edema, Normal Capillary Refill Neurological: Alert, Normal Mood/Affect, Normal Dorsiflexion, CN II-XII Intact, Normal Plantar Flexion, Normal Gait, Normal Reflexes, No Motor/Sensory Deficits, Oriented x 3 Psychiatric: Normal Affect, Normal Mood Skin Exam: Warm, Dry, Intact, Normal Color, No Rash Lymphatic: No Adenopathy Course - Vital Signs Last Recorded V/S: Last Vital Signs Temp 97.6 F 05/27/21 08:34 Pulse 68 05/27/21 08:34 Resp 14 05/27/21 08:34 BP 116/73 05/27/21 08:34 Pulse Ox 95 05/27/21 08:34 - Orders/Labs/Meds Meds: Medications Discontinued Medications Generic Name Dose Route Start Last Admin Trade Name Levarq PRN Reason Stop Dose Admin Methylprednisolone Sodium Succinate 125 mg 05/27/21 08:46 Methylprednisolone Sodium Succinate 125 Mg/2 Ml Sdv IVPUSH 05/27/21 08:47 ONETIME ONE Departure - Departure Time of Disposition: 09:13 Disposition: Home, Self-Care 01 Condition: Poor Clinical Impression: Low back pain with left-sided sciatica Qualifiers: Chronicity: acute Back pain laterality: left Qualified Code(s): M54.42 - Lumbago with sciatica, left side - Discharge Information *PRESCRIPTION DRUG MONITORING PROGRAM REVIEWED*: Not Applicable *COPY OF PRESCRIPTION DRUG MONITORING REPORT IN PATIENT JEREMIAS: Not Applicable Instructions: Sciatica, [id number], Muscle Strain, [id number] Care Plan Goals: The patient was advised of the examination results during the visit. The patient was given Solu-Medrol while in the ED. The patient was discharged with a prescription for Prednisone (20 mg) #10 to take 2 by mouth daily for 5 days (starting 05/27/21) and Flexeril (10 mg) #20 to take 1 by mouth at bedtime as needed. The patient may take Tylenol as directed for temporary symptom relief. If the patient has any additional symptoms or concerns, the patient has any additional symptoms or concerns, the patient should either return to the emergency department or visit her primary care facility. Sepsis Event Note (ED) - Evaluation Sepsis Screening Result: No Definite Risk - Focused Exam Vital Signs: Vital Signs Temp Pulse Resp BP Pulse Ox 05/27/21 08:34 97.6 F 68 14 116/73 95
== END 2021-05-27 09:48 | disposition home or self-care (01) ==
LOC: DL.ED 08:13
DX: M54.42 Lumbago with sciatica, left side (principal); Z88.0 Allergy status to penicillin; Z88.1 Allergy status to other antibiotic agents; Z72.0 Tobacco use
CPT/HCPCS: 96374; 99284; J2930

== ENCOUNTER 2021-07-26 10:03 | Emergency (ER) | payer BC, MEDICAID ==
[2021-07-26 10:37] VITALS: BP 122/73; PULSE 91
[2021-07-26 11:03] LABS: ANION GAP 16.1 mEq/L (7-13); CHLORIDE,CL 100 mmol/L (98-107); SODIUM,NA 139 mmol/L (136-145)
[2021-07-26 11:09] LABS: AMPHETAMINES,URINE NEGATIVE (NEGATIVE); BARBITURATES,URINE NEGATIVE (NEGATIVE); BENZODIAZEPINE,URINE NEGATIVE (NEGATIVE); MDMA (ECSTASY), URINE NEGATIVE (NEGATIVE); METHADONE,URINE NEGATIVE (NEGATIVE); METHAMPHETAMINES,URINE NEGATIVE (NEGATIVE); OPIATES,URINE NEGATIVE (NEGATIVE); OXYCODONE,URINE NEGATIVE (NEGATIVE); PHENCYCLIDINE,URINE NEGATIVE (NEGATIVE); TCA,URINE NEGATIVE (NEGATIVE)
== END 2021-07-26 11:32 | disposition home or self-care (01) ==
LOC: DL.ED 10:03
DX: R00.2 Palpitations (principal); Z88.1 Allergy status to other antibiotic agents; Z88.0 Allergy status to penicillin; Z87.891 Personal history of nicotine dependence
CPT/HCPCS: 36415; 80053; 80305-QW; 81003; 83605; 84484; 85025; 87040; 93005; 93010; 99284; 99285-25

== ENCOUNTER 2022-10-07 07:36 | Emergency (ER) | payer BC, MEDICAID ==
[2022-10-07] MEDS ORDERED: GI Cocktail Oral Solution 30 ML PO ONE (07:45)
[2022-10-07 08:28] LABS: ANION GAP 12.7 mEq/L (7-13); CHLORIDE,CL 104 mmol/L (98-107); SODIUM,NA 141 mmol/L (136-145)
[2022-10-07 08:30] LABS: ESTIMATED GFR 100 mL/min (>=60)
[2022-10-07 09:07] VITALS: BP 124/81; PULSE 76
== END 2022-10-07 09:03 | disposition home or self-care (01) ==
LOC: DL.ED 07:36
DX: K21.00 Gastro-esophageal reflux disease with esophagitis, without bleeding (principal); Z88.0 Allergy status to penicillin; Z88.1 Allergy status to other antibiotic agents
CPT/HCPCS: 36415; 71046; 80053; 83690; 84484; 84703; 85025; 93005; 93010; 99284; 99285; A9270-GY

== ENCOUNTER 2023-03-12 20:48 | Emergency (ER) | payer BC ==
[2023-03-12] MEDS ORDERED: Sodium Chloride 0.9% 1,000 ML IV ONE (21:05)
[2023-03-12] MEDS ORDERED: Sodium Chloride 0.9% 10 ML Syringe FLUSH PRN (21:05)
[2023-03-12] MEDS ORDERED: Ondansetron 4 MG/2 ML SDV IVPUSH ONE (21:05)
[2023-03-12 21:14] LABS: BASOPHILS PERCENT AUTO 0.3 % (0.0-1.0); EOSINOPHILS PERCENT AUTO 0.7 % (1.0-3.0); HEMATOCRIT 43.4 % (37.0-47.0); HEMOGLOBIN 14.6 g/dL (12.0-16.0); LYMPHOCYTES PERCENT AUTO 38.9 % (20.5-50.1); MEAN CORPUSCULAR HEMOGLOBIN 31.3 pg (27.0-34.0); MEAN CORPUSCULAR HGB CONC 33.6 g/dL (33.0-35.0); MEAN CORPUSCULAR VOLUME 93.1 fL (80-100); MONOCYTES PERCENT AUTO 6.3 % (2-8); NEUTROPHILS PERCENT AUTO 53.8 % (42.2-75.2); PLATELET COUNT,PLT 293 10^3/uL (150-450); RED BLOOD CELL COUNT 4.66 10^6/uL (4.2-5.4); WHITE BLOOD CELL COUNT,WBC 10.1 10^3/uL (5.0-10.0)
[2023-03-12] MEDS ORDERED: HYDROmorphone 1 MG/ML Syringe IVPUSH ONE (21:15)
[2023-03-12 21:25] LABS: INR 0.9 (0.9-1.2); PROTHROMBIN TIME 8.9 SEC (9.0-12.0); PTT,PARTIAL THROMBOPLSTIN TIME 26.3 SEC (22.0-34.0)
[2023-03-12 21:32] LABS: A/G RATIO 1.1; ALANINE AMINOTRANSFERASE,ALT 21 U/L (14-59); ALBUMIN 4.3 g/dL (3.4-5.0); ALKALINE PHOSPHATASE 75 U/L (46-116); AMYLASE 44 U/L (25-115); ANION GAP 13.9 mEq/L (7-13); ASPARTATE AMNIOTRANSFERASE,AST 14 U/L (15-37); BILIRUBIN TOTAL 0.3 mg/dL (0.2-1.0); BLOOD UREA NITROGEN,BUN 10 mg/dL (7-18); BUN/CREATININE RATIO 10.8 (No establ ref range); CALCIUM 9.5 mg/dL (8.5-10.1); CARBON DIOXIDE,CO2 28 mmol/L (21-32); CHLORIDE,CL 101 mmol/L (98-107); CREATININE 0.93 mg/dL (0.55-1.02); EST CRCL DRUG DOSING (CG) 88.69 mL/min; GLUCOSE RANDOM 110 mg/dL (70-99); LIPASE 158 U/L (73-393); POTASSIUM,K 3.9 mmol/L (3.5-5.1); PROTEIN TOTAL,TP 8.1 g/dL (6.4-8.2); SODIUM,NA 139 mmol/L (136-145)
[2023-03-12 21:33] LABS: LACTIC ACID 0.9 mmol/L (0.4-2.0)
[2023-03-12 21:50] LABS: C-REACTIVE PROTEIN < 0.2 mg/dL (0.0-0.9); ESTIMATED GFR 81 mL/min (>=60)
[2023-03-12] MEDS ORDERED: Iopamidol 612 MG/ML 100 ML Bottle IVPUSH ONE (21:54)
[2023-03-12 21:55] LABS: APPEARANCE,URINE CLEAR (CLEAR); BILIRUBIN,URINE NEGATIVE (NEGATIVE); COLOR,URINE YELLOW (YELLOW); GLUCOSE,URINE NEGATIVE (NEGATIVE); KETONES,URINE NEGATIVE (NEGATIVE); LEUKOCYTE ESTERASE,URINE MODERATE (NEGATIVE); NITRITE,URINE NEGATIVE (NEGATIVE); OCCULT BLOOD,URINE MODERATE (NEGATIVE); PROTEIN,URINE TRACE (NEGATIVE); UROBILINOGEN,URINE 0.2 mg/dL (0.2-1.0)
[2023-03-12 21:57] LABS: AMPHETAMINES,URINE NEGATIVE (NEGATIVE); BARBITURATES,URINE NEGATIVE (NEGATIVE); BENZODIAZEPINE,URINE NEGATIVE (NEGATIVE); MDMA (ECSTASY), URINE NEGATIVE (NEGATIVE); METHADONE,URINE NEGATIVE (NEGATIVE); METHAMPHETAMINES,URINE NEGATIVE (NEGATIVE); OPIATES,URINE NEGATIVE (NEGATIVE); OXYCODONE,URINE NEGATIVE (NEGATIVE); PHENCYCLIDINE,URINE NEGATIVE (NEGATIVE); TCA,URINE NEGATIVE (NEGATIVE)
[2023-03-12 22:04] LABS: BACTERIA,URINE FEW /HPF (0-FEW/HPF); EPITHELIAL CELLS,URINE FEW /HPF (NOT SEEN); WBC,URINE 40-50 /HPF (0-5/HPF)
[2023-03-12] MEDS ORDERED: Ketorolac 30 MG/ML SDV IVPUSH ONE (23:10)
[2023-03-12] MEDS ORDERED: Take Home: Ondansetron 4 MG Tab.DIS, 5 Tab Pack PO ONE (23:14)
[2023-03-12] MEDS ORDERED: Nitrofurantoin Monohydrate/Macrocrystalline 100 MG Cap PO ONE (23:15)
[2023-03-12 23:28] VITALS: BP 125/78; PULSE 78
== END 2023-03-12 23:37 | disposition home or self-care (01) ==
LOC: DL.ED 20:48
DX: K80.20 Calculus of gallbladder without cholecystitis without obstruction (principal); N39.0 Urinary tract infection, site not specified; R31.9 Hematuria, unspecified; Z88.1 Allergy status to other antibiotic agents; Z88.0 Allergy status to penicillin
CPT/HCPCS: 36415; 74177; 80053; 80305; 81001; 81025; 82150; 83605; 83690; 84145; 84484; 85025; 85610; 85730; 86140; 87086; 87088; 87186; 93005; 93010; 96361; 96374; 96375; 99284; A9270; J1170; J1885; J2405; J7030; Q0162; Q9967; J3490

== ENCOUNTER 2023-05-10 11:24 | Emergency (ER) | payer BC, MEDICAID ==
[2023-05-10 11:55] VITALS: BP 145/89; PULSE 78
[2023-05-10] MEDS ORDERED: Albuterol/Ipratropium 3.0-0.5 MG/3 ML Neb Soln NEB ONE (11:55)
== END 2023-05-10 13:06 | disposition home or self-care (01) ==
LOC: DL.ED 11:24
DX: R06.02 Shortness of breath (principal); K21.9 Gastro-esophageal reflux disease without esophagitis; Z88.1 Allergy status to other antibiotic agents; Z88.0 Allergy status to penicillin
CPT/HCPCS: 71046; 99283; 99285; J7620-GY

== ENCOUNTER 2023-07-11 13:41 | Emergency (ER) | payer BC ==
[2023-07-11 14:04] VITALS: BP 128/94; PULSE 103
[2023-07-11] MEDS ORDERED: Sodium Chloride 0.9% 10 ML Syringe FLUSH PRN (14:20)
[2023-07-11 14:33] LABS: BASOPHILS PERCENT AUTO 0.5 % (0.0-1.0); EOSINOPHILS PERCENT AUTO 0.4 % (1.0-3.0); HEMATOCRIT 42.4 % (37.0-47.0); HEMOGLOBIN 13.7 g/dL (12.0-16.0); LYMPHOCYTES PERCENT AUTO 33.2 % (20.5-50.1); MEAN CORPUSCULAR HEMOGLOBIN 30.4 pg (27.0-34.0); MEAN CORPUSCULAR HGB CONC 32.3 g/dL (33.0-35.0); MEAN CORPUSCULAR VOLUME 94.2 fL (80-100); MONOCYTES PERCENT AUTO 6.7 % (2-8); NEUTROPHILS PERCENT AUTO 59.2 % (42.2-75.2); PLATELET COUNT,PLT 277 10^3/uL (150-450); WHITE BLOOD CELL COUNT,WBC 7.4 10^3/uL (5.0-10.0)
[2023-07-11 14:54] LABS: A/G RATIO 1.1; ALANINE AMINOTRANSFERASE,ALT 24 U/L (14-59); ALBUMIN 3.9 g/dL (3.4-5.0); ALKALINE PHOSPHATASE 78 U/L (46-116); ANION GAP 13.1 mEq/L (7-13); ASPARTATE AMNIOTRANSFERASE,AST 16 U/L (15-37); BILIRUBIN TOTAL 0.3 mg/dL (0.2-1.0); BLOOD UREA NITROGEN,BUN 7 mg/dL (7-18); BUN/CREATININE RATIO 10.4 (No establ ref range); CALCIUM 8.9 mg/dL (8.5-10.1); CARBON DIOXIDE,CO2 30 mmol/L (21-32); CHLORIDE,CL 100 mmol/L (98-107); CREATININE 0.67 mg/dL (0.55-1.02); EST CRCL DRUG DOSING (CG) 123.11 mL/min; GLUCOSE RANDOM 100 mg/dL (70-99); LIPASE 36 U/L (16-77); POTASSIUM,K 4.1 mmol/L (3.5-5.1); PROTEIN TOTAL,TP 7.4 g/dL (6.4-8.2); SODIUM,NA 139 mmol/L (136-145); TSH ULTRASENSITIVE 1.18 uIU/mL (0.36-3.74)
[2023-07-11 14:55] LABS: C-REACTIVE PROTEIN < 0.50 ng/dL (<=0.50); ESTIMATED GFR 115 mL/min (>=60)
[2023-07-11 15:08] LABS: CORONAVIRUS COVID-19 NAA NEGATIVE (NEGATIVE); INFLUENZA A NAA NEGATIVE (NEGATIVE); INFLUENZA B NAA NEGATIVE (NEGATIVE)
== END 2023-07-11 16:14 | disposition home or self-care (01) ==
LOC: DL.ED 13:41
DX: R07.89 Other chest pain (principal); F17.210 Nicotine dependence, cigarettes, uncomplicated; Z86.16 Personal history of COVID-19; Z20.822 Contact with and (suspected) exposure to COVID-19; Z88.1 Allergy status to other antibiotic agents; Z88.0 Allergy status to penicillin
CPT/HCPCS: 0240U; 36415; 71045; 80053; 83690; 83735; 84443; 84484; 85025; 86140; 93005; 99285; 93010; 99284

== ENCOUNTER 2024-01-10 11:28 | Emergency (ER) | payer BC ==
[2024-01-10 11:46] VITALS: BP 118/79; PULSE 88
[2024-01-10] MEDS: Sodium Chloride 0.9% 10 ML Syringe FLUSH PRN (11:47)
[2024-01-10 11:53] LABS: BASOPHILS PERCENT AUTO 0.7 % (0.0-1.0); HEMATOCRIT 41.4 % (37.0-47.0); HEMOGLOBIN 13.8 g/dL (12.0-16.0); LYMPHOCYTES PERCENT AUTO 47.4 % (20.5-50.1); MEAN CORPUSCULAR HEMOGLOBIN 30.4 pg (27.0-34.0); MEAN CORPUSCULAR HGB CONC 33.3 g/dL (33.0-35.0); MEAN CORPUSCULAR VOLUME 91.2 fL (80-100); MONOCYTES PERCENT AUTO 7.5 % (2-8); NEUTROPHILS PERCENT AUTO 43.4 % (42.2-75.2); PLATELET COUNT,PLT 256 10^3/uL (150-450); RED BLOOD CELL COUNT 4.54 10^6/uL (4.2-5.4); WHITE BLOOD CELL COUNT,WBC 7.3 10^3/uL (5.0-10.0)
[2024-01-10 12:13] LABS: APPEARANCE,URINE CLEAR (CLEAR); BILIRUBIN,URINE NEGATIVE (NEGATIVE); COLOR,URINE YELLOW (YELLOW); GLUCOSE,URINE NEGATIVE (NEGATIVE); KETONES,URINE NEGATIVE (NEGATIVE); LEUKOCYTE ESTERASE,URINE NEGATIVE (NEGATIVE); NITRITE,URINE NEGATIVE (NEGATIVE); OCCULT BLOOD,URINE NEGATIVE (NEGATIVE); PROTEIN,URINE NEGATIVE (NEGATIVE); UROBILINOGEN,URINE 0.2 mg/dL (0.2-1.0)
[2024-01-10 12:14] LABS: LACTIC ACID 1.2 mmol/L (0.4-2.0)
[2024-01-10 12:16] LABS: AMPHETAMINES,URINE NEGATIVE (NEGATIVE); BARBITURATES,URINE NEGATIVE (NEGATIVE); BENZODIAZEPINE,URINE NEGATIVE (NEGATIVE); MDMA (ECSTASY), URINE NEGATIVE (NEGATIVE); METHADONE,URINE NEGATIVE (NEGATIVE); METHAMPHETAMINES,URINE NEGATIVE (NEGATIVE); OPIATES,URINE NEGATIVE (NEGATIVE); OXYCODONE,URINE NEGATIVE (NEGATIVE); PHENCYCLIDINE,URINE NEGATIVE (NEGATIVE); TCA,URINE NEGATIVE (NEGATIVE)
[2024-01-10 12:20] LABS: A/G RATIO 1.1; ALANINE AMINOTRANSFERASE,ALT 17 U/L (14-59); ALBUMIN 3.7 g/dL (3.4-5.0); ALKALINE PHOSPHATASE 49 U/L (46-116); AMYLASE 43 U/L (25-115); ANION GAP 15.1 mEq/L (7-13); ASPARTATE AMNIOTRANSFERASE,AST 10 U/L (15-37); BILIRUBIN TOTAL 0.3 mg/dL (0.2-1.0); BLOOD UREA NITROGEN,BUN 14 mg/dL (7-18); BUN/CREATININE RATIO 16.3 (No establ ref range); CARBON DIOXIDE,CO2 24 mmol/L (21-32); CHLORIDE,CL 105 mmol/L (98-107); CREATININE 0.86 mg/dL (0.55-1.02); EST CRCL DRUG DOSING (CG) 94.97 mL/min; GLUCOSE RANDOM 106 mg/dL (70-99); LIPASE 59 U/L (16-77); MAGNESIUM 1.9 mg/dL (1.8-2.4); POTASSIUM,K 4.1 mmol/L (3.5-5.1); PROTEIN TOTAL,TP 7.1 g/dL (6.4-8.2); SODIUM,NA 140 mmol/L (136-145); TSH ULTRASENSITIVE 1.52 uIU/mL (0.36-3.74)
[2024-01-10 12:21] LABS: C-REACTIVE PROTEIN < 0.50 ng/dL (<=0.50); ESTIMATED GFR 88 mL/min (>=60); ETHANOL BLOOD MEDICAL < 3 mg/dL (0)
[2024-01-10 12:25] LABS: INR 0.9 (0.9-1.2); PROTHROMBIN TIME 9.3 SEC (9.0-12.0); PTT,PARTIAL THROMBOPLSTIN TIME 26.3 SEC (22.0-34.0)
== END 2024-01-10 12:48 | disposition home or self-care (01) ==
LOC: DL.ED 11:28
DX: R07.89 Other chest pain (principal); Z86.16 Personal history of COVID-19; Z88.0 Allergy status to penicillin; Z88.8 Allergy status to other drugs, medicaments and biological substances; Z88.6 Allergy status to analgesic agent
CPT/HCPCS: 36415; 71045; 80053; 80305-QW; 80307; 81003; 82150; 83605; 83690; 83735; 84145; 84443; 84484; 85025; 85379; 85610; 85730; 86140; 93005; 93010; 99284; 99285; J3490

== ENCOUNTER 2024-07-04 06:54 | Emergency (ER) | payer BC ==
[2024-07-04 07:49] LABS: APPEARANCE,URINE CLEAR (CLEAR); BILIRUBIN,URINE NEGATIVE (NEGATIVE); COLOR,URINE YELLOW (YELLOW); GLUCOSE,URINE NEGATIVE (NEGATIVE); KETONES,URINE NEGATIVE (NEGATIVE); LEUKOCYTE ESTERASE,URINE NEGATIVE (NEGATIVE); NITRITE,URINE NEGATIVE (NEGATIVE); OCCULT BLOOD,URINE TRACE-LYSED (NEGATIVE); PROTEIN,URINE NEGATIVE (NEGATIVE); UROBILINOGEN,URINE 0.2 mg/dL (0.2-1.0)
[2024-07-04 07:53] LABS: AMPHETAMINES,URINE NEGATIVE (NEGATIVE); BARBITURATES,URINE NEGATIVE (NEGATIVE); BENZODIAZEPINE,URINE NEGATIVE (NEGATIVE); MDMA (ECSTASY), URINE NEGATIVE (NEGATIVE); METHADONE,URINE NEGATIVE (NEGATIVE); METHAMPHETAMINES,URINE NEGATIVE (NEGATIVE); OPIATES,URINE NEGATIVE (NEGATIVE); OXYCODONE,URINE NEGATIVE (NEGATIVE); PHENCYCLIDINE,URINE NEGATIVE (NEGATIVE); TCA,URINE NEGATIVE (NEGATIVE)
[2024-07-04 08:05] LABS: BASOPHILS PERCENT AUTO 0.9 % (0.0-1.0); EOSINOPHILS PERCENT AUTO 0.9 % (1.0-3.0); HEMATOCRIT 38.9 % (37.0-47.0); HEMOGLOBIN 12.6 g/dL (12.0-16.0); LYMPHOCYTES PERCENT AUTO 49.7 % (20.5-50.1); MEAN CORPUSCULAR HEMOGLOBIN 29.9 pg (27.0-34.0); MEAN CORPUSCULAR HGB CONC 32.4 g/dL (33.0-35.0); MEAN CORPUSCULAR VOLUME 92.4 fL (80-100); MONOCYTES PERCENT AUTO 7.3 % (2-8); NEUTROPHILS PERCENT AUTO 41.2 % (42.2-75.2); PLATELET COUNT,PLT 249 10^3/uL (150-450); RED BLOOD CELL COUNT 4.21 10^6/uL (4.2-5.4); WHITE BLOOD CELL COUNT,WBC 5.4 10^3/uL (5.0-10.0)
[2024-07-04 08:06] LABS: HCG QUALITATIVE,SERUM NEGATIVE (NEGATIVE)
[2024-07-04 08:09] LABS: A/G RATIO 1.2; ALANINE AMINOTRANSFERASE,ALT 13 U/L (14-59); ALBUMIN 3.6 g/dL (3.4-5.0); ALKALINE PHOSPHATASE 49 U/L (46-116); ANION GAP 13.8 mEq/L (7-13); ASPARTATE AMNIOTRANSFERASE,AST 9 U/L (15-37); BILIRUBIN TOTAL 0.3 mg/dL (0.2-1.0); BLOOD UREA NITROGEN,BUN 10 mg/dL (7-18); BUN/CREATININE RATIO 12.5 (No establ ref range); CALCIUM 8.5 mg/dL (8.5-10.1); CARBON DIOXIDE,CO2 27 mmol/L (21-32); CHLORIDE,CL 106 mmol/L (98-107); GLUCOSE RANDOM 107 mg/dL (70-99); LIPASE 60 U/L (16-77); MAGNESIUM 2.1 mg/dL (1.8-2.4); POTASSIUM,K 3.8 mmol/L (3.5-5.1); PROTEIN TOTAL,TP 6.5 g/dL (6.4-8.2); SODIUM,NA 143 mmol/L (136-145)
[2024-07-04 08:09] LABS: BACTERIA,URINE FEW /HPF (0-FEW/HPF); EPITHELIAL CELLS,URINE FEW /HPF (NOT SEEN); MUCUS,URINE OCCASIONAL /LPF (NOT SEEN); RBC,URINE 0-5 /HPF (0-5); WBC,URINE NOT SEEN /HPF (0-5/HPF)
[2024-07-04 08:12] LABS: ESTIMATED GFR 96 mL/min (>=60)
[2024-07-04 08:50] VITALS: BP 101/69; PULSE 76
== END 2024-07-04 08:45 | disposition home or self-care (01) ==
LOC: DL.ED 06:54
DX: R07.89 Other chest pain (principal); F17.210 Nicotine dependence, cigarettes, uncomplicated; Z90.89 Acquired absence of other organs; Z86.16 Personal history of COVID-19; Z88.0 Allergy status to penicillin; Z88.6 Allergy status to analgesic agent; Z88.1 Allergy status to other antibiotic agents; Z88.8 Allergy status to other drugs, medicaments and biological substances; Z79.51 Long term (current) use of inhaled steroids; Z79.899 Other long term (current) drug therapy
CPT/HCPCS: 36415; 71046; 80053; 80305-QW; 81001; 83690; 83735; 84443; 84484; 84703; 85025; 85379; 87428-QW; 93005; 93010; 99284; 99285

== ENCOUNTER 2025-05-05 22:58 | Emergency (ER) | payer BC ==
[2025-05-05 23:15] VITALS: BP 137/81; PULSE 85
[2025-05-05] MEDS ORDERED: Sodium Chloride 0.9% 10 ML Syringe FLUSH PRN (23:24)
[2025-05-05 23:36] LABS: BASOPHILS PERCENT AUTO 0.9 % (0.0-1.0); EOSINOPHILS PERCENT AUTO 0.8 % (1.0-3.0); LYMPHOCYTES PERCENT AUTO 45.8 % (20.5-50.1); MONOCYTES PERCENT AUTO 7.0 % (2-8); NEUTROPHILS PERCENT AUTO 45.5 % (42.2-75.2); PLATELET COUNT,PLT 244 10^3/uL (150-450); RED BLOOD CELL COUNT 4.24 10^6/uL (4.2-5.4); WHITE BLOOD CELL COUNT,WBC 7.4 10^3/uL (5.0-10.0)
[2025-05-05 23:53] LABS: D-DIMER QUANTITATIVE 251.0 ng/mL (0-400)
[2025-05-05 23:57] LABS: INR 0.9 (0.9-1.2); PTT,PARTIAL THROMBOPLSTIN TIME 25.9 SEC (22.0-34.0)
[2025-05-05 23:59] LABS: B-TYPE NATRIURETIC PEPTIDE,BNP 5.0 pg/ml (0-100)
[2025-05-06] LABS: A/G RATIO 1.3; ALANINE AMINOTRANSFERASE,ALT 15.0 U/L (14-59); ASPARTATE AMNIOTRANSFERASE,AST 9.0 U/L (15-37); BILIRUBIN TOTAL 0.3 mg/dL (0.2-1.0); BLOOD UREA NITROGEN,BUN 11.0 mg/dL (7-18); CARBON DIOXIDE,CO2 25.0 mmol/L (21-32); CHLORIDE,CL 107.0 mmol/L (98-107); CREATININE 0.75 mg/dL (0.55-1.02); EST CRCL DRUG DOSING (CG) 107.82 mL/min; GLUCOSE RANDOM 120.0 mg/dL (70-99); POTASSIUM,K 3.4 mmol/L (3.5-5.1); PROTEIN TOTAL,TP 6.7 g/dL (6.4-8.2); SODIUM,NA 144.0 mmol/L (136-145)
[2025-05-06 00:02] LABS: ESTIMATED GFR 103.0 mL/min (>=60)
== END 2025-05-06 03:02 | disposition home or self-care (01) ==
LOC: DL.ED 22:58
DX: R07.89 Other chest pain (principal); R10.13 Epigastric pain; F17.200 Nicotine dependence, unspecified, uncomplicated; Z86.16 Personal history of COVID-19; Z79.899 Other long term (current) drug therapy; Z88.5 Allergy status to narcotic agent; Z88.8 Allergy status to other drugs, medicaments and biological substances; Z88.0 Allergy status to penicillin; Z88.1 Allergy status to other antibiotic agents
CPT/HCPCS: 36415; 71045; 80053; 83735; 83880; 84484; 85025; 85379; 85610; 85730; 93005; 99285; A9270; 93010; 99284